=== PATIENT | male | born 1940 | race Caucasian/White ===

== ENCOUNTER 2016-10-27 13:09 | Emergency (ER) | payer MEDICARE ==
[2016-10-27] MEDS ORDERED: DUONEB 0.5-3 MG/3 ml Neb IH ONE ×2 (13:19→13:50)
[2016-10-27] MEDS ORDERED: ROCEPHIN 1 Gm-D5w 50 ml Bag** 50 ML IV ONE ×2 (13:19→13:49)
[2016-10-27] MEDS ORDERED: solu-MEDROL 125 MG IV ONE (13:19)
[2016-10-27] MEDS ORDERED: Pepcid 20 MG VIAL IV ONE ×2 (13:19→13:49)
[2016-10-27] MEDS ORDERED: Zithromax 500 MG/ 250 ML NaCl Premix 250 ML IV ONE ×2 (13:19→13:49)
[2016-10-27] MEDS ORDERED: Sodium Chloride 0.9% 1000 ML 1,000 ML IV SCH (13:30)
[2016-10-27 13:35] LABS: A-aADO2 526; ARTERIAL BLOOD GAS FIO2 100 %; ARTERIAL BLOOD GAS PO2 137 mmHg (75-100); ARTERIAL BLOOD GAS pH 7.43 (7.35-7.45); BIPAP(E) 6; BIPAP(I) 14; Lactic Acid 2.2 (0.4-2.0)
[2016-10-27] MEDS ORDERED: Sodium Chloride 0.9% 1000 ML 1,000 ML ONE (13:49)
[2016-10-27] MEDS ORDERED: solu-MEDROL 125 MG ONE (13:49)
[2016-10-27 13:50] LABS: COMPLETE URINE MICROSCOPIC? NO; Collection Type CATH
[2016-10-27] MEDS ORDERED: FEVERALL 650 MG PR ONE (13:51)
[2016-10-27 13:53] LABS: Mean Cell Volume 85.8 fl (78-100); Mean Corpuscular Hemoglobin 28.1 pg (26-32); Mean Platelet Volume 11.1 fl (6-9.5); Platelet Count 282 K/mm3 (150-450); Red Blood Count 4.99 M/mm3 (4.1-5.6); Red Cell Distribution Width 14.3 % (11.5-14.0); White Blood Count 14.3 K/mm3 (4.0-10.5)
--- NOTE | 2016-10-27 13:58 | ERPHSYRPT ---
- History of Present Illness Time Seen by Provider: 10/27/16 13:14 Source: patient, family, EMS, old records Exam Limitations: clinical condition Patient Subjective Stated Complaint: PT ARRIVED PER AMBULANCE FOR INCREASE SOB AND LOW O2 SATS AT HOME, SAT WAS 76% AT HOME PER EMS AND WAS PLACED ON C PAP AND GIVEN RESP TREATMENT AND SOLUMEDEROL,DIMINISHED BREATH SOUNDS, PT IS BELOW THE KNEE AMPUTEE . Triage Nursing Assessment: PT ARRIVED ALERT, AND IN RESP DISTRESS, RESP LABORED , SKIN W/D PALE.NO EDEMA NOTED Physician History: patient arrived in resp extremis via EMS; elevated temp' on c pap; awake and responsive but too sob to talk; hx of pnuemonia Timing/Duration: today, sudden, worse Activities at Onset: rest Severity of Dyspnea-Max: severe Severity of Dyspnea-Current: severe Possible Cause: occasional episodes Modifying Factors: Improves With: nothing Associated Symptoms: cough, fever International travel in last 2 weeks: No Allergies/Adverse Reactions: No Known Drug Allergies Allergy (Verified 10/27/16 13:24) Home Medications: Aspirin EC 81 mg [Ecotrin 81 mg] 81 mg PO DAILY 02/27/13 [History] Furosemide 40 mg [Lasix 40 MG] 40 mg PO DAILY 02/27/13 [History] Lisinopril [Zestril] 5 mg PO DAILY 02/27/13 [History] Metformin HCl 1000 mg [Glucophage 1000 MG] 1,000 mg PO BID 02/27/13 [History] Metoprolol Tartrate 25 mg [Lopressor 25MG Tab] 12.5 mg PO BID 02/27/13 [ History] Clopidogrel Bisulfate 75 mg [PLAVIX 75 MG Tablet] 75 mg DAILY 10/27/16 [ History] Fenofibrate Nanocrystallized [Fenofibrate] 145 mg DAILY 10/27/16 [History] Insulin Aspart [NovoLOG Insulin] 14 units TID 10/27/16 [History] Insulin Detemir [Levemir] 35 units HS 10/27/16 [History] Ipratropium/Albuterol Sulfate [Iprat-Albut 0.5-3(2.5) mg/3 ml] 3 ml QID [History] Hx Tetanus, Diphtheria Vaccination/Date Given: Yes Hx Influenza Vaccination/Date Given: (UNSURE) Hx Pneumococcal Vaccination/Date Given: (UNSURE) Immunizations Up to Date: Yes - Review of Systems Constitutional: Fever, Lethargy Eyes: No Symptoms Ears, Nose, & Throat: No Symptoms Respiratory: Cyanosis, Dyspnea, Wheezing Cardiac: Syncope (semi), Orthopnea, No Chest Pain Abdominal/Gastrointestinal: No Abdominal Pain, No Vomiting, No Diarrhea Genitourinary Symptoms: No Symptoms Musculoskeletal: Other (bilateral lower extremity amputee) Skin: No Symptoms Neurological: Lethargy Psychological: No Symptoms Endocrine: No Symptoms Hematologic/Lymphatic: No Symptoms - Past Medical History Pertinent Past Medical History: Yes Neurological History: No Pertinent History ENT History: No Pertinent History Cardiac History: Coronary Artery Disease, Hypertension, Myocardial Infarction ( [place]), Peripheral Vascular Disease Respiratory History: Bronchitis, COPD, Emphysema, Sleep Apnea Endocrine Medical History: Diabetes Type II, Liver Disease Musculoskeletal History: Arthritis GI Medical History: No Pertinent History History: No Pertinent History Psycho-Social History: Depression Male Reproductive Disorders: No Pertinent History - Past Surgical History Past Surgical History: Yes Neuro Surgical History: No Pertinent History Cardiac: Cardiac Catheterization Respiratory: No Pertinent History Gastrointestinal: Appendectomy, Hernia Repair Genitourinary: No Pertinent History Musculoskeletal: Orthopedic Surgery Male Surgical History: No Pertinent History Other Surgical History: LEFT THUMB X3, BACK SURGERY, LEFT SHOULDER. PAXTON ABOCE KNEE AMPUTEE - Social History Smoking Status: Unknown if ever smoked How long have you smoked: 63 YRS. Exposure to second hand smoke: Yes Alcohol Use: Socially Drug Use: none Patient Lives Alone: No Significant Family History: heart disease, diabetes, hypertension - Nursing Vital Signs Nursing Vital Signs: Initial Vital Signs Temperature 103 F Temperature Source Core Pulse Rate 78 Respiratory Rate 20 Blood Pressure [] 112/62 Pain Intensity 0 - Physical Exam General Appearance: severe distress, lethargy, obese, other (bilateral lower extremity amputee) Eye Exam: PERRL/EOMI, No photophobia Ears, Nose, Throat Exam: hearing grossly normal, normal ENT inspection, normal pharynx Neck Exam: normal inspection, non-tender, supple, full range of motion, JVD, No meningismus Respiratory Exam: respiratory distress, airway intact, diminished breath sounds , accessory muscle use, crackles/rales, rhonchi, wheezing, No normal breath sounds, No chest tenderness Cardiovascular/Chest Exam: JVD, tachycardia, irregular, No normal heart sounds, No regular rate/rhythm (mfled), No murmur Abdominal/Gastrointestinal Exam: soft, normal bowel sounds, distention (soft), No tenderness, No guarding, No rebound Rectal Exam: deferred Extremity Exam: non-tender (upper), normal inspection (upper) Peripheral Pulses Exam: carotid (R): 4+, carotid (L): 4+, femoral (R): 4+, femoral (L): 4+ Neurologic Exam: cooperative, drink box mechanic II-XII nml as tested Skin Exam: normal color, warm, dry, No rash SpO2 Interpretation: normal, ABG ordered, O2 applied SpO2: 99 Oxygen Delivery: CPAP - Course Nursing assessment & vital signs reviewed: Yes EKG Interpreted by Me: RATE (116), A-fib, NORMAL AXIS, NORMAL QRS, Non-specific ST Changes Rhythm Strip: Rate (116), Atrial Fibrillation (w RVR) - Radiology Exams Chest X-ray Interpretation: Reviewed by me, Teleradiologist Report, Infiltrates (RLL) , Pneumonia (RLL) Ordered Tests: Active Orders 24 hr Category Date Time Status ACCUCHECK [Accucheck] STAT Care 10/27/16 15:39 Active CO2 Monitoring STAT Care 10/27/16 13:19 Completed Woodworking Craftsman STAT Care 10/27/16 13:19 Active Catheter-[place] Mendez STAT Care 10/27/16 13:19 Active EKG-ER Only STAT Care 10/27/16 13:19 Active IV Insertion STAT Care 10/27/16 13:19 Active IV Insertion-2nd Peripheral STAT Care 10/27/16 13:47 Active NPO (ED) STAT Care 10/27/16 13:19 Active Pulse Oximetry (ED) STAT Care 10/27/16 13:19 Active Rectal Temperature STAT Care 10/27/16 13:19 Active CHEST 1 VIEW (PORTABLE) Stat Exams 10/27/16 13:19 Completed ARTERIAL BLOOD GASES Urgent Lab 10/27/16 13:30 Completed BLOOD CULTURE Stat Lab 10/27/16 13:40 Received CBC W DIFF Stat Lab 10/27/16 13:47 Completed CMP Stat Lab 10/27/16 13:47 Completed CULTURE,SPUTUM Stat Lab 10/27/16 13:19 Uncollected CULTURE,URINE Stat Lab 10/27/16 13:47 Received Lactic Acid Urgent Lab 10/27/16 13:30 Completed MAGNESIUM Stat Lab 10/27/16 13:47 Completed Manual Differential NC Stat Lab 10/27/16 13:47 Completed NT PRO BNP Stat Lab 10/27/16 13:47 Completed PROTIME WITH INR Stat Lab 10/27/16 13:40 Completed TROPONIN Stat Lab 10/27/16 13:47 Completed UA Stat Lab 10/27/16 13:47 Completed BiPap/CPAP Assessment STAT RT 10/27/16 13:19 Active Peak Expiratory Flow Rate ONCE RT 10/27/16 13:19 Completed Respiratory Nebulizer STAT RT 10/27/16 13:25 Completed Medication Summary Generic Name Dose Route Start Last Admin Trade Name Freq PRN Reason Stop Dose Admin Sodium Chloride 1,000 mls @ 50 mls/hr 10/27/16 13:30 10/27/16 13:53 Sodium Chloride 0.9% 1000 Ml IV 11/26/16 13:29 50 mls/hr .Q20H VENESSA Administration Discontinued Medications Generic Name Dose Route Start Last Admin Trade Name Freq PRN Reason Stop Dose Admin Acetaminophen 975 mg 10/27/16 13:51 10/27/16 14:15 Feverall 650 Mg NM 10/27/16 13:52 975 mg STAT ONE Administration Acetaminophen Confirm 10/27/16 14:07 Feverall 650 Mg Administered 10/27/16 14:08 Dose 650 mg .ROUTE .STK-MED ONE Acetaminophen Confirm 10/27/16 14:07 Feverall 325 Mg Administered 10/27/16 14:08 Dose 325 mg .ROUTE .STK-MED ONE Albuterol/Ipratropium 3 ml 10/27/16 13:19 10/27/16 13:53 Duoneb 0.5-3 Mg/3 Ml Neb IH 10/27/16 13:20 3 ml STAT ONE Administration Albuterol/Ipratropium Confirm 10/27/16 13:50 Duoneb 0.5-3 Mg/3 Ml Neb Administered 10/27/16 13:51 Dose 3 ml IH .STK-MED ONE Famotidine 20 mg 10/27/16 13:19 10/27/16 13:53 Pepcid 20 Mg Vial IV 10/27/16 13:20 20 mg STAT ONE Administration Famotidine Confirm 10/27/16 13:49 Pepcid 20 Mg Vial Administered 10/27/16 13:50 Dose 20 mg IV .STK-MED ONE Azithromycin 250 mls @ 125 mls/hr 10/27/16 13:19 10/27/16 13:52 Zithromax 500 Mg/ 250 Ml Nacl Premix IV 10/27/16 15:18 125 mls/hr STAT ONE Administration Ceftriaxone Sodium/Dextrose 50 mls @ 100 mls/hr 10/27/16 13:19 10/27/16 13:53 Rocephin 1 Gm-D5w 50 Ml Bag IV 10/27/16 13:48 100 mls/hr STAT ONE Administration Azithromycin Confirm 10/27/16 13:49 Zithromax 500 Mg/ 250 Ml Nacl Premix Administered 10/27/16 13:50 Dose 250 mls @ ud IV .STK-MED ONE Sodium Chloride Confirm 10/27/16 13:49 Sodium Chloride 0.9% 1000 Ml Administered 10/27/16 13:50 Dose 1,000 mls @ ud .ROUTE .STK-MED ONE Ceftriaxone Sodium/Dextrose Confirm 10/27/16 13:49 Rocephin 1 Gm-D5w 50 Ml Bag Administered 10/27/16 13:50 Dose 50 mls @ ud IV .STK-MED ONE Ibuprofen 600 mg 10/27/16 14:20 10/27/16 14:25 Motrin 600 Mg PO 10/27/16 14:21 600 mg STAT ONE Administration Ibuprofen Confirm 10/27/16 14:23 Motrin 600 Mg Administered 10/27/16 14:24 Dose 600 mg .ROUTE .STK-MED ONE Methylprednisolone Sodium Succinate 125 mg 10/27/16 13:19 10/27/16 13:53 Solu-Medrol 125 Mg IV 10/27/16 13:20 125 mg STAT ONE Administration Methylprednisolone Sodium Succinate Confirm 10/27/16 13:49 Solu-Medrol 125 Mg Administered 10/27/16 13:50 Dose 125 mg .ROUTE .STK-MED ONE Lab/Rad Data: Laboratory Result Diagrams 10/27/16 13:47 10/27/16 13:47 Laboratory Results 10/27/16 10/27/16 10/27/16 Range/Units 13:47 13:47 13:47 WBC 14.3 H (4.0-10.5) K/mm3 RBC 4.99 (4.1-5.6) M/mm3 Hgb 14.0 (12.5-18.0) gm/dl Hct 42.8 (42-50) % MCV 85.8 (78-100) fl MCH 28.1 (26-32) pg MCHC 32.7 (32-36) g/dl RDW 14.3 H (11.5-14.0) % Plt Count 282 (150-450) K/mm3 MPV 11.1 H (6-9.5) fl Segmented Neutrophils 74 H (36.-66.) % Band Neutrophils 1 (0.0-2.0) % Lymphocytes (Manual) 18 L (24-44) % Monocytes (Manual) 5 (0.0-12.0) % Atypical Lymphocytes 2 % Platelet Estimate NORMAL (NORMAL) Poikilocytosis 1+ Anisocytosis 1+ INR (0.8-3.0) Puncture Site pCO2 (35-45) mmHg pO2 (75-100) mmHg Base Excess (-2.0-2.0) O2 Saturation (94-100) g/dF ABG pH (7.35-7.45) ABG HCO3 (22-28) ABG O2 Sat (Measured) (95-100) % Richmond Test A-a Gradient a/A Ratio Hemoglobin Carboxyhemoglobin (0.0-6.9) % THgb Methemoglobin (1.4-1.5) % Potassium 5.1 (3.5-5.1) Temperature C POC O2 Flow Rate % Inspiratory BiPAP Expiratory BiPAP Sodium 135 L (136-145) mEq/L Chloride 97 L (98-107) mEq/L Carbon Dioxide 27.9 (21-32) mEq/L Anion Gap 15.2 H (5-15) MEQ/L BUN 26 H (9-20) mg/dL Creatinine 1.00 (0.55-1.30) mg/dl Estimated GFR > 60 ML/MIN Glucose 216 H (70-110) MG/DL Lactic Acid (0.4-2.0) Calcium 9.4 (8.5-10.1) mg/dL Magnesium 1.6 L (1.8-2.4) mg/dL Total Bilirubin 0.4 (0.2-1.0) mg/dL AST 23 (15-37) U/L ALT 23 (12-78) U/L Alkaline Phosphatase 51 (46-116) U/L Troponin I < 0.017 (0.000-0.056) ng/ml NT-Pro-B Natriuret Pep 219 H (0-125) pg/ml Serum Total Protein 8.3 H (6.4-8.2) gm/dL Albumin 3.6 (3.4-5.0) g/dL Ur Collection Type CATH Urine Color YELLOW (YELLOW) Urine Appearance CLEAR (CLEAR) Urine pH 5.0 (5-6) Ur Specific Adrian 1.010 (1.005-1.025) Urine Protein NEGATIVE (Negative) Urine Glucose (UA) NEGATIVE (NEGATIVE) mg/dL Urine Ketones NEGATIVE (NEGATIVE) Urine Nitrite NEGATIVE (NEGATIVE) Urine Bilirubin NEGATIVE (NEGATIVE) Urine Urobilinogen 0.2 (0-1) mg/dL Urine WBC (Auto) NEGATIVE (NEGATIVE) Urine RBC (Auto) NEGATIVE (0-5) Elio/ul Resp Infection Panel (Negative) Specimen Received 10/27/16 1340 10/27/16 10/27/16 10/27/16 Range/Units 13:40 13:40 13:30 WBC (4.0-10.5) K/mm3 RBC (4.1-5.6) M/mm3 Hgb (12.5-18.0) gm/dl Hct (42-50) % MCV (78-100) fl MCH (26-32) pg MCHC (32-36) g/dl RDW (11.5-14.0) % Plt Count (150-450) K/mm3 MPV (6-9.5) fl Segmented Neutrophils (36.-66.) % Band Neutrophils (0.0-2.0) % Lymphocytes (Manual) (24-44) % Monocytes (Manual) (0.0-12.0) % Atypical Lymphocytes % Platelet Estimate (NORMAL) Poikilocytosis Anisocytosis INR 1.16 (0.8-3.0) Puncture Site LEFT RADIAL pCO2 40 (35-45) mmHg pO2 137 H* (75-100) mmHg Base Excess 2.0 (-2.0-2.0) O2 Saturation 96.7 (94-100) g/dF ABG pH 7.43 (7.35-7.45) ABG HCO3 26.5 (22-28) ABG O2 Sat (Measured) 97.0 (95-100) % Richmond Test NOT APPLICABLE A-a Gradient 526 a/A Ratio 0.21 Hemoglobin 14.0 Carboxyhemoglobin 0.0 (0.0-6.9) % THgb Methemoglobin 0.3 L (1.4-1.5) % Potassium 5.1 (3.5-5.1) Temperature 37.0 C POC O2 Flow Rate 100 % Inspiratory BiPAP 14 Expiratory BiPAP 6 Sodium (136-145) mEq/L Chloride (98-107) mEq/L Carbon Dioxide (21-32) mEq/L Anion Gap (5-15) MEQ/L BUN (9-20) mg/dL Creatinine (0.55-1.30) mg/dl Estimated GFR ML/MIN Glucose (70-110) MG/DL Lactic Acid 2.2 H (0.4-2.0) Calcium (8.5-10.1) mg/dL Magnesium (1.8-2.4) mg/dL Total Bilirubin (0.2-1.0) mg/dL AST (15-37) U/L ALT (12-78) U/L Alkaline Phosphatase (46-116) U/L Troponin I (0.000-0.056) ng/ml NT-Pro-B Natriuret Pep (0-125) pg/ml Serum Total Protein (6.4-8.2) gm/dL Albumin (3.4-5.0) g/dL Ur Collection Type Urine Color (YELLOW) Urine Appearance (CLEAR) Urine pH (5-6) Ur Specific Adrian (1.005-1.025) Urine Protein (Negative) Urine Glucose (UA) (NEGATIVE) mg/dL Urine Ketones (NEGATIVE) Urine Nitrite (NEGATIVE) Urine Bilirubin (NEGATIVE) Urine Urobilinogen (0-1) mg/dL Urine WBC (Auto) (NEGATIVE) Urine RBC (Auto) (0-5) Elio/ul Resp Infection Panel NEGATIVE (Negative) Specimen Received reviewed - Progress Progress: improved (after meds and treatment), re-examined (after treatments and meds) Air Movement: poor Progress Note: 10/27/16 14:00 ekg AF w RVR; ATBs and fluids given;labs and XR pending; will recheck; put on bipapa; ABG drawn and ok; will decrease o2; elevated WBC; lactic acid elevated 2.2 10/27/16 14:44 Teri Cates consulted adn will refer to [facility] Dr Okeefe; family at bedside; patient clincially imnmporved; awake and responsive now; resp distress resolve 10/27/16 16:15 family consulted and informed of results; patient continued to improve with meds and on bipap; Discussed case with DR Okeefe and he accepted the patietn for transfer to [facility] ICU; patient and family notified; patient under continuous monitoring and awaiting bed assignment; will call EMS for transfer Blood Culture(s) Obtained: Yes Antibiotics given: Yes Discussed with .: Other (Teri Cates consulted and will refer to [facility] Resident attending; Dr Okeefe consulted and accepted the patient for transfer to [facility] ICU) Will see patient in: hospital (full admit) Counseled pt/family regarding: lab results, diagnosis, need for follow-up, rad results - Departure Time of Disposition: 16:17 Departure Disposition: Transfer (to [facility] ICU ; Dr Okeefe accepting physician) Clinical Impression: Hypoxemia, Pneumonia, Morbid obesity, Elevated lactic acid level, Acute respiratory failure Condition: Serious Critical Care Time: Yes Critical Care Time(excluding separately billable procedures): 30-74 minutes Referrals: TERI MOSER PA [Primary Care Provider] -
[2016-10-27 14:01] LABS: INR 1.16 (0.8-3.0); PROTIME 12.9 SECONDS (8.83-12.87)
[2016-10-27 14:05] LABS: ATYPICAL LYMPHS 2 %; BAND 1 % (0.0-2.0); Total Cells Counted 100
[2016-10-27] MEDS ORDERED: FEVERALL 325 MG ONE (14:07)
[2016-10-27] MEDS ORDERED: FEVERALL 650 MG ONE (14:07)
[2016-10-27 14:08] LABS: ANISOCYTOSIS 1+; Platelet Estimate NORMAL (NORMAL); Poikilocytosis 1+
[2016-10-27] MEDS ORDERED: MOTRIN 600 MG PO ONE (14:20)
[2016-10-27] MEDS ORDERED: MOTRIN 600 MG ONE (14:23)
[2016-10-27 14:34] LABS: ALBUMIN 3.6 g/dL (3.4-5.0); ALKALINE PHOSPHATASE 51 U/L (46-116); ANION GAP 15.2 MEQ/L (5-15); BILIRUBIN,TOTAL 0.4 mg/dL (0.2-1.0); BLOOD UREA NITROGEN 26 mg/dL (9-20); CHLORIDE 97 mEq/L (98-107); Carbon Dioxide 27.9 mEq/L (21-32); Glucose 216 MG/DL (70-110); MAGNESIUM 1.6 mg/dL (1.8-2.4); Potassium 5.1 mEq/L (3.5-5.1); SGOT/AST 23 U/L (15-37); SGPT/ALT 23 U/L (12-78); SODIUM 135 mEq/L (136-145); Total Protein 8.3 gm/dL (6.4-8.2)
[2016-10-27 14:35] LABS: TROPONIN < 0.017 ng/ml (0.000-0.056)
--- NOTE | 2016-10-27 14:43 | XRAY ---
Indication: Short of breath. Comparison: March 22, 2015 Portable chest again demonstrates right base infiltrate versus atelectasis. Remaining lungs clear. Heart is not enlarged for AP portable technique. Bony thorax intact again with osteopenia and previous left shoulder arthroplasty. Impression: Right base infiltrate/atelectasis. Correlate clinically.
[2016-10-27 16:27] VITALS: O2SAT 97
[2016-10-27 19:21] VITALS: BP 110/66; PULSE 84
== END 2016-10-27 19:54 | disposition short-term general hospital (02) ==
LOC: ED 13:09
DX: R09.02 Hypoxemia (principal); J18.9 Pneumonia, unspecified organism; E66.01 Morbid (severe) obesity due to excess calories; R74.0 Nonspecific elevation of levels of transaminase and lactic acid dehydrogenase [LDH]; J96.90 Respiratory failure, unspecified, unspecified whether with hypoxia or hypercapnia; R05 Cough; R50.9 Fever, unspecified; I25.10 Atherosclerotic heart disease of native coronary artery without angina pectoris; I10 Essential (primary) hypertension; I21.3 ST elevation (STEMI) myocardial infarction of unspecified site; E11.9 Type 2 diabetes mellitus without complications; Z79.899 Other long term (current) drug therapy
CPT/HCPCS: 36000; 36415; 36600; 51702; 71010; 80053; 81002; 82375; 82803; 82962; 83605; 83735; 83880; 84484; 85025; 85610; 87040; 87086; 87631; 93005; 93041; 94002; 94640; 96360; 96361; 96365; 96366; 96368; 99284; 99291; J0456; J0696; J2930

== ENCOUNTER 2017-01-10 11:37 | Inpatient (IN) | payer MEDICARE ==
--- NOTE | 2017-01-10 11:53 | ERPHSYRPT ---
- History of Present Illness Time Seen by Provider: 01/10/17 11:38 Source: patient, EMS (gave duoneb, oxygen, albuterol, and solu medrol PASSENGER LOCOMOTIVE ENGINEER) Physician History: CC: short of breath Hx: 76 y/o patient with no local doctor (in between doctors). He has one week hx of shortness of breath, cough, phlegm. Maybe some fever. No chills. Hx of DM and COPD. He is on home oxygen at 4L. EMS gave nebs and steroids with some improvement in condition. No chest pain. No V/D. He has prior bilateral leg amputations. Timing/Duration: week(s) (1) Severity of Dyspnea-Max: moderate Severity of Dyspnea-Current: moderate Allergies/Adverse Reactions: No Known Drug Allergies Allergy (Verified 01/10/17 11:51) Home Medications: Aspirin EC 81 mg [Ecotrin 81 mg] 81 mg PO DAILY 02/27/13 [History] Furosemide 40 mg [Lasix 40 MG] 40 mg PO DAILY 02/27/13 [History] Lisinopril [Zestril] 5 mg PO DAILY 02/27/13 [History] Metformin HCl 1000 mg [Glucophage 1000 MG] 1,000 mg PO BID 02/27/13 [History] Clopidogrel Bisulfate 75 mg [PLAVIX 75 MG Tablet] 75 mg DAILY 10/27/16 [ History] Fenofibrate Nanocrystallized [Fenofibrate] 145 mg DAILY 10/27/16 [History] Insulin Aspart [NovoLOG Insulin] 14 units TID 10/27/16 [History] Insulin Detemir [Levemir] 35 units HS 10/27/16 [History] Ipratropium/Albuterol Sulfate [Iprat-Albut 0.5-3(2.5) mg/3 ml] 3 ml QID [History] Metoprolol Tartrate [Lopressor] 50 mg PO DAILY 01/10/17 [History] Potassium Chloride 10 Meq Tab* [Klor Con 10 MEQ] 10 meq PO UD 01/10/17 [ History] Sertraline HCl 50 mg [Zoloft 50 mg Tablet] 75 mg PO DAILY 01/10/17 [History] Tizanidine HCl 4 mg [Zanaflex 4 MG] 4 mg PO TID 01/10/17 [History] Hx Tetanus, Diphtheria Vaccination/Date Given: Yes Hx Influenza Vaccination/Date Given: (UNSURE) Hx Pneumococcal Vaccination/Date Given: (UNSURE) - Review of Systems Constitutional: Fever, Malaise, Weakness, No Chills Eyes: No Symptoms Ears, Nose, & Throat: No Symptoms Respiratory: Cough, Dyspnea Cardiac: No Chest Pain Abdominal/Gastrointestinal: No Abdominal Pain, No Nausea, No Vomiting, No Diarrhea Genitourinary Symptoms: No Dysuria Skin: No Rash Neurological: No Headache All Other Systems: Reviewed and Negative - Past Medical History Pertinent Past Medical History: Yes Neurological History: No Pertinent History ENT History: No Pertinent History Cardiac History: Coronary Artery Disease, Hypertension, Myocardial Infarction ( [place]), Peripheral Vascular Disease Respiratory History: Bronchitis, COPD, Emphysema, Sleep Apnea Endocrine Medical History: Diabetes Type II, Liver Disease Musculoskeletal History: Arthritis GI Medical History: No Pertinent History History: No Pertinent History Psycho-Social History: Depression Male Reproductive Disorders: No Pertinent History - Past Surgical History Past Surgical History: Yes Neuro Surgical History: No Pertinent History Cardiac: Cardiac Catheterization Respiratory: No Pertinent History Gastrointestinal: Appendectomy, Hernia Repair Genitourinary: No Pertinent History Musculoskeletal: Orthopedic Surgery Male Surgical History: No Pertinent History Other Surgical History: LEFT THUMB X3, BACK SURGERY, LEFT SHOULDER. PAXTON ABOVE KNEE AMPUTEE - Social History Smoking Status: Unknown if ever smoked How long have you smoked: 63 YRS. Exposure to second hand smoke: Yes Alcohol Use: Socially Drug Use: none Patient Lives Alone: No Significant Family History: heart disease, diabetes, hypertension - Nursing Vital Signs Nursing Vital Signs: Initial Vital Signs Temperature 98.6 F Temperature Source Rectal Pulse Rate 88 Respiratory Rate 28 Blood Pressure [Right Arm] 115/50 Pain Intensity 0 - Physical Exam General Appearance: alert Eye Exam: PERRL/EOMI Neck Exam: normal inspection, non-tender, supple Respiratory Exam: respiratory distress (mild), crackles/rales Cardiovascular/Chest Exam: regular rate/rhythm Abdominal/Gastrointestinal Exam: soft, No tenderness, No distention, No mass, No guarding Neurologic Exam: alert, oriented x 3, cooperative, No motor deficits Skin Exam: warm, dry SpO2 Interpretation: borderline oxygenation SpO2: 93 Oxygen Delivery: Nasal Cannula - Course Nursing assessment & vital signs reviewed: Yes EKG Interpreted by Me: RATE (120), Sinus Tach, NORMAL AXIS, Non-specific ST Changes - Radiology Exams cxr X-ray Interpretation: Teleradiologist Report (bilateral infiltrates) Ordered Tests: Active Orders 24 hr Category Date Time Status CO2 Monitoring STAT Care 01/10/17 11:38 Active Kindergarten Assistant STAT Care 01/10/17 11:38 Active Clean Catch Urine Specimen STAT Care 01/10/17 11:38 Active EKG-ER Only STAT Care 01/10/17 11:38 Active IV Insertion STAT Care 01/10/17 11:38 Active Oxygen-ED Only NASAL CANNULA 4 lpm Care 01/10/17 11:38 Active Pulse Oximetry (ED) STAT Care 01/10/17 11:38 Active Rectal Temperature STAT Care 01/10/17 11:38 Active CHEST 1 VIEW (PORTABLE) Stat Exams 01/10/17 11:39 Completed BLOOD CULTURE Stat Lab 01/10/17 11:55 Received CBC W DIFF Stat Lab 01/10/17 11:55 Completed CMP Stat Lab 01/10/17 11:55 Received CULTURE,SPUTUM Stat Lab 01/10/17 12:29 Ordered CULTURE,URINE Stat Lab 01/10/17 11:39 Ordered Lactic Acid Urgent Lab 01/10/17 11:38 Completed Lactic Acid Urgent Lab 01/10/17 13:30 Ordered Manual Differential NC Stat Lab 01/10/17 11:55 Completed NT PRO BNP Stat Lab 01/10/17 11:55 Received PROTIME WITH INR Stat Lab 01/10/17 11:55 Completed PTT Stat Lab 01/10/17 11:55 Completed TROPONIN Stat Lab 01/10/17 11:55 Received UA Stat Lab 01/10/17 11:39 Ordered VENOUS BLOOD GAS Urgent Lab 01/10/17 11:38 Completed Medication Summary Generic Name Dose Route Start Last Admin Trade Name Freq PRN Reason Stop Dose Admin Azithromycin 250 mls @ 125 mls/hr 01/10/17 12:01 01/10/17 12:15 Zithromax 500 Mg/ 250 Ml Nacl Premix IV 01/10/17 14:00 125 mls/hr STAT ONE Administration Discontinued Medications Generic Name Dose Route Start Last Admin Trade Name Freq PRN Reason Stop Dose Admin Ceftriaxone Sodium/Dextrose 50 mls @ 100 mls/hr 01/10/17 12:01 01/10/17 12:15 Rocephin 1 Gm-D5w 50 Ml Bag IV 01/10/17 12:30 100 mls/hr STAT ONE Administration Azithromycin Confirm 01/10/17 12:10 Zithromax 500 Mg/ 250 Ml Nacl Premix Administered 01/10/17 12:11 Dose 250 mls @ ud IV .STK-MED ONE Ceftriaxone Sodium/Dextrose Confirm 01/10/17 12:11 Rocephin 1 Gm-D5w 50 Ml Bag Administered 01/10/17 12:12 Dose 50 mls @ ud IV .STK-MED ONE Lab/Rad Data: Laboratory Result Diagrams 01/10/17 11:55 Laboratory Results 01/10/17 01/10/17 01/10/17 Range/Units 11:55 11:55 11:40 WBC 15.6 H (4.0-10.5) K/mm3 RBC 5.07 (4.1-5.6) M/mm3 Hgb 12.9 (12.5-18.0) gm/dl Hct 41.8 L (42-50) % MCV 82.4 (78-100) fl MCH 25.4 L (26-32) pg MCHC 30.9 L (32-36) g/dl RDW 15.2 H (11.5-14.0) % Plt Count 375 (150-450) K/mm3 MPV 10.6 H (6-9.5) fl Segmented Neutrophils 52 (36.-66.) % Lymphocytes (Manual) 45 H (24-44) % Monocytes (Manual) 3 (0.0-12.0) % Platelet Estimate NORMAL (NORMAL) Polychromasia 1+ Poikilocytosis 1+ Anisocytosis 1+ INR 1.27 (0.8-3.0) PTT 31.6 (24.1-36.1) SECONDS VBG pH (7.32-7.42) VBG pCO2 at Pat Temp (42-55) mm/Hg VBG pO2 at Pat Temp (25-40) mm/Hg VBG HCO3 (22-28) meq/L VBG O2 Sat (Julian) (95-100) VBG Base Excess (-2.0-2.0) VBG Hemoglobin VBG Carboxyhemoglobin (0.0-6.9) % T HGB POC Potassium (3.5-5.1) Lactic Acid (0.4-2.0) Influenza Type A Ag NEGATIVE (NEGATIVE) Influenza Type B Ag NEGATIVE (NEGATIVE) RSV (PCR) NEGATIVE (Negative) 01/10/17 Range/Units 11:38 WBC (4.0-10.5) K/mm3 RBC (4.1-5.6) M/mm3 Hgb (12.5-18.0) gm/dl Hct (42-50) % MCV (78-100) fl MCH (26-32) pg MCHC (32-36) g/dl RDW (11.5-14.0) % Plt Count (150-450) K/mm3 MPV (6-9.5) fl Segmented Neutrophils (36.-66.) % Lymphocytes (Manual) (24-44) % Monocytes (Manual) (0.0-12.0) % Platelet Estimate (NORMAL) Polychromasia Poikilocytosis Anisocytosis INR (0.8-3.0) PTT (24.1-36.1) SECONDS VBG pH 7.39 (7.32-7.42) VBG pCO2 at Pat Temp 49 (42-55) mm/Hg VBG pO2 at Pat Temp 25 (25-40) mm/Hg VBG HCO3 29.7 H* (22-28) meq/L VBG O2 Sat (Julian) 44.5 L (95-100) VBG Base Excess 3.8 H (-2.0-2.0) VBG Hemoglobin 13.3 VBG Carboxyhemoglobin 2.1 (0.0-6.9) % T HGB POC Potassium 4.9 (3.5-5.1) Lactic Acid 2.6 H (0.4-2.0) Influenza Type A Ag (NEGATIVE) Influenza Type B Ag (NEGATIVE) RSV (PCR) (Negative) - Progress Progress Note: 01/10/17 13:18 Stable here but appears to have pneumonia with COPD exacerbation. On oxygen for chronic hypoxemia. Called Dr Mehta fmor admission. Discussed with : Tyson Will see patient in: hospital (full admit) Counseled pt/family regarding: lab results, diagnosis, need for follow-up, rad results - Departure Time of Disposition: 13:19 Departure Disposition: In-patient Admission Clinical Impression: Pneumonia, COPD exacerbation, Type 2 diabetes mellitus Condition: Fair Critical Care Time: No Referrals: DOCTOR,NO FAMILY [Primary Care Provider] -
[2017-01-10 11:58] LABS: Lactic Acid 2.6 (0.4-2.0); VBG BASE EXCESS 3.8 (-2.0-2.0); VBG CARBOXYHEMOGLOBIN 2.1 % T HGB (0.0-6.9); VBG HCO3- 29.7 meq/L (22-28); VBG HEMOGLOBIN 13.3; VBG O2 SATURATION 44.5 (95-100); VBG POTASSIUM 4.9 (3.5-5.1); VBG pH 7.39 (7.32-7.42)
[2017-01-10] MEDS ORDERED: ROCEPHIN 1 Gm-D5w 50 ml Bag** 50 ML IV ONE ×2 (12:01→12:11)
[2017-01-10] MEDS ORDERED: Zithromax 500 MG/ 250 ML NaCl Premix 250 ML IV ONE ×2 (12:01→12:10)
[2017-01-10 12:12] LABS: Mean Cell Volume 82.4 fl (78-100); Mean Corpuscular Hemoglobin 25.4 pg (26-32); Mean Platelet Volume 10.6 fl (6-9.5); Platelet Count 375 K/mm3 (150-450); Red Blood Count 5.07 M/mm3 (4.1-5.6); Red Cell Distribution Width 15.2 % (11.5-14.0); White Blood Count 15.6 K/mm3 (4.0-10.5)
--- NOTE | 2017-01-10 12:15 | XRAY ---
Indication: Cough and dyspnea. Comparison: October 27, 2016. Portable chest is rotated today translating the heart and mediastinal structures. Probable stable right base infiltrate/atelectasis with new similar opacity in the left lung base. Heart remains upper limits of normal in size. Bony thorax intact again with osteopenia and previous left shoulder arthroplasty. Impression: Bibasilar infiltrates/atelectasis. Correlate clinically.
[2017-01-10 12:31] LABS: INR 1.27 (0.8-3.0); PROTIME 14.1 SECONDS (8.83-12.87)
[2017-01-10 12:34] LABS: PTT 31.6 SECONDS (24.1-36.1)
[2017-01-10 12:35] LABS: ANISOCYTOSIS 1+; Poikilocytosis 1+; Polychromasia 1+; Total Cells Counted 100
[2017-01-10 12:36] LABS: Platelet Estimate NORMAL (NORMAL)
[2017-01-10 13:39] LABS: ALBUMIN 2.8 g/dL (3.4-5.0); ALKALINE PHOSPHATASE 97 U/L (46-116); ANION GAP 15.4 MEQ/L (5-15); BILIRUBIN,TOTAL 0.4 mg/dL (0.2-1.0); BLOOD UREA NITROGEN 17 mg/dL (9-20); CHLORIDE 99 mEq/L (98-107); Carbon Dioxide 28.7 mEq/L (21-32); Glucose 234 MG/DL (70-110); Potassium 4.8 mEq/L (3.5-5.1); SGOT/AST 21 U/L (15-37); SGPT/ALT 21 U/L (12-78); SODIUM 138 mEq/L (136-145); TROPONIN < 0.017 ng/ml (0.000-0.056); Total Protein 8.8 gm/dL (6.4-8.2)
[2017-01-10] MEDS ORDERED: Sodium Chloride 0.9% 1000 ML 1,000 ML IV STA (13:43)
[2017-01-10] MEDS ORDERED: PROVENTIL 2.5 MG/3 ML NEB IH ONE ×2 (13:43→13:44)
[2017-01-10] MEDS ORDERED: Sodium Chloride 0.9% 1000 ML 1,000 ML ONE (13:49)
[2017-01-10 14:21] LABS: Collection Type CATH
[2017-01-10 14:22] LABS: Bacteria FEW /HPF (NEGATIVE); COMPLETE URINE MICROSCOPIC? YES; Mucus SLIGHT /HPF (NEGATIVE); Ph 6.5 (5-6); WBC 0-2 /HPF (0-5)
[2017-01-10] MEDS ORDERED: NovoLOG Insulin SQ PRN (15:06)
[2017-01-10] MEDS ORDERED: DUONEB 0.5-3 MG/3 ml Neb IH ONE (15:49)
[2017-01-10] MEDS: DUONEB 0.5-3 MG/3 ml Neb IH SCH ×3 (15:50→23:21)
[2017-01-10 16:26] LABS: BLOOD UREA NITROGEN 23 mg/dL (9-20); CHLORIDE 103 mEq/L (98-107); Carbon Dioxide 25.7 mEq/L (21-32); Glucose 220 MG/DL (70-110); Potassium 5.1 mEq/L (3.5-5.1); SODIUM 141 mEq/L (136-145)
[2017-01-10 16:43] LABS: Mean Cell Volume 82.9 fl (78-100); Mean Platelet Volume 10.7 fl (6-9.5); Platelet Count 347 K/mm3 (150-450); Red Blood Count 4.45 M/mm3 (4.1-5.6); Red Cell Distribution Width 14.9 % (11.5-14.0)
[2017-01-10 16:55] LABS: Mean Corpuscular Hemoglobin 25.1 pg (26-32)
[2017-01-10] MEDS ORDERED: Phenergan 25 MG INJ IV PRN (17:09)
[2017-01-10] MEDS: Zosyn 3.375GM/100 Ml D5W 100 ML IV SCH (18:11)
[2017-01-10] MEDS: Sodium Chloride 0.9% 1000 ML 1,000 ML IV SCH (18:11)
[2017-01-10] MEDS: solu-MEDROL 125 MG IV SCH (18:17)
[2017-01-10 18:56] LABS: Collection Type CLEAN CATCH
[2017-01-10 18:58] LABS: ADD URINE CULTURE? YES (NO)
[2017-01-10 19:00] LABS: COMPLETE URINE MICROSCOPIC? YES
[2017-01-10] MEDS: Pepcid 20 MG VIAL IV SCH (22:00)
[2017-01-10] MEDS ORDERED: Lantus Insulin SQ SCH (22:00)
[2017-01-10] MEDS: ZOCOR 20MG PO SCH (22:01)
[2017-01-10] MEDS: NovoLOG Insulin SQ PRN (22:03)
[2017-01-10] MEDS: Zanaflex 4 MG PO SCH (22:28)
[2017-01-11] MEDS: Zosyn 3.375GM/100 Ml D5W 100 ML IV SCH ×4 (00:11→18:05)
[2017-01-11] MEDS: solu-MEDROL 125 MG IV SCH ×4 (00:11→18:05)
[2017-01-11] MEDS: DUONEB 0.5-3 MG/3 ml Neb IH SCH ×6 (03:32→22:48)
[2017-01-11 05:50] LABS: Mean Cell Volume 83.9 fl (78-100); Mean Platelet Volume 10.6 fl (6-9.5); Platelet Count 340 K/mm3 (150-450); Red Cell Distribution Width 15.1 % (11.5-14.0)
[2017-01-11 05:54] LABS: ANION GAP 14.2 MEQ/L (5-15); BLOOD UREA NITROGEN 21 mg/dL (9-20); CHLORIDE 104 mEq/L (98-107); Carbon Dioxide 28.5 mEq/L (21-32); Glucose 425 MG/DL (70-110); Potassium 4.9 mEq/L (3.5-5.1); SODIUM 142 mEq/L (136-145)
[2017-01-11 06:01] LABS: Mean Corpuscular Hemoglobin 25.4 pg (26-32)
[2017-01-11] MEDS: Tricor 145 MG PO SCH (08:09)
[2017-01-11] MEDS: Flomax 0.4 MG PO SCH (08:09)
[2017-01-11] MEDS: PLAVIX 75 MG Tablet PO SCH (08:09)
[2017-01-11] MEDS: Zanaflex 4 MG PO SCH ×3 (08:09→21:04)
[2017-01-11] MEDS: ZOLOFT 50 MG TABLET PO SCH (08:09)
[2017-01-11] MEDS: ECOTRIN 81 MG PO SCH (08:09)
[2017-01-11] MEDS: NovoLOG Insulin SQ PRN ×4 (08:10→22:31)
--- NOTE | 2017-01-11 08:11 | HP ---
HISTORY OF PRESENT ILLNESS: This is a 76 year-old patient without a physician in the local area who presented to the emergency department via ambulance. According to his emergency room chart, he had shortness of breath. The patient reports to me that this was for one week. The patient is a very poor historian and is dyspneic. On examination right now he does say that he has had a cough that has been productive of yellow sputum and denies fever but states that he has been very warm. He is alert and oriented x3. He knows that he is at the [facility] in [place] and the year is 2016 and his name is Tereso Velazquez but it takes him a long time to answer any kind of questions. According the emergency room physician's note, he is on home oxygen at home at 4 liters. He received nebulizer treatments and steroids in route in the ambulance. He has a history of diabetes mellitus requiring bilateral above knee amputations in the past and he also has history of chronic obstructive pulmonary disease. REVIEW OF SYSTEMS: Further review of systems are unobtainable due to the patient's condition. PAST MEDICAL HISTORY: Diabetes mellitus type 2, chronic obstructive pulmonary disease, history of hypoxia, coronary artery disease, history of myocardial infarction per the emergency room doctors note. History of peripheral vascular disease, sleep apnea and also liver disease in the emergency room doctor's note and arthritis as well as depression. PAST SURGICAL HISTORY: From the emergency room chart: Appendectomy, hernia repair, history of cardiac catheterization, orthopedic surgery, left thumb surgery x2, back surgery, left shoulder surgery, bilateral above knee amputation. MEDICATIONS: Acetaminophen 325 mg p.o. every four to six hours as needed, aspirin 81 mg p.o. daily, Fenofibrate 145 mg p.o. daily, Flomax 0.7 mg p.o. daily, Imodium 2 mg daily as needed, DuoNeb four times a day as needed, Lasix 40 mg daily, Levemir 35 units at bedtime, levofloxacin is on his home medicine list 500 mg daily, lisinopril 5 mg daily, Lopressor 12.5 mg b.i.d., Metformin 1,000 mg b.i.d., NovoLog 14 units t.i.d. with meals, 3 liters of oxygen, Plavix 75 mg daily, potassium chloride 10 mEq four times a day, Sertraline 75 mg p.o. daily, TriCor 160 mg daily, Tylenol 325 mg as needed, Zanaflex 4 mg t.i.d., Zocor 40 mg at bedtime. This is from a medication list that was printed on 11/08/2016. He said he has [facility] home care. ALLERGIES: NKDA. SOCIAL HISTORY: Unobtainable at this time. He is and lives with his . FAMILY HISTORY: Unobtainable. PHYSICAL EXAMINATION: VITAL SIGNS: Temperature current 98.0F, temperature max 98.6F, heart rate 72 to 122 currently 88, respiratory rate 22 to 28 and currently 22, blood pressure 102 to 115 over 50 to 60, weight is 81.4 kg. Oxygen saturation currently 89% on 4 liters with Oxymizer. GENERAL: The patient is lying in bed. He is alert and oriented x3 but he is very dyspneic and it takes him a long time to answer questions. CVS: He has a regular rate and rhythm. No murmurs, gallops or rubs. CHEST: He has scattered wheezes throughout, equal breath sounds. ABDOMEN: Soft, nontender, nondistended with normal bowel sounds. EXTREMITIES: He has above knee amputation but I do not see any sores on his well healed scars. No clubbing, cyanosis or edema. He has 2+ radial pulses bilaterally. SKIN: Warm, dry and intact. LABORATORY DATA AND TESTS: Labs on admission his lactic acid was 2.6, repeat lactic acid two hours later was 3.6. White blood cell count was 15.6 on admission, repeat 11. Hemoglobin 11.2. Glucose 220. BNP 779. Albumin 2.8. UA was negative. Sputum culture and blood culture in lab. Influenza A/B and respiratory syncytial virus were all negative. Chest x-ray was read as bibasilar infiltrate/atelectasis. ASSESSMENT AND PLAN: 1) BILATERAL PNEUMONIA: He was started on ceftriaxone and azithromycin in the emergency room given that his lactic acid is increasing and he seems to be having more trouble answering questions. I am going to change the ceftriaxone to Zosyn. I will recheck a CBC in the morning. I confirmed his Code Status with him. He does not want to have any heroic measures taken and also his had signed this. The nurse stated that he had agreed with this code status while she was in the room and she signed the form for him. 2) DIABETES MELLITUS TYPE 2: Will start him on Lantus 20 units at night and a low dose sliding scale. Will check a hemoglobin A1C. 3) HISTORY OF CHRONIC OBSTRUCTIVE PULMONARY DISEASE: He has been started on IV steroids, will continue with antibiotics as well, breathing treatments and oxygen as needed. 4) HISTORY OF CORONARY ARTERY DISEASE: I am not sure who his form grader is. Will continue with aspirin and Plavix at this time and holding lisinopril and Metoprolol due to his lower blood pressure as I am concerned that he will be septic.
--- NOTE | 2017-01-11 09:16 | PCM.NOTE ---
Date and Time: 01/11/17910 Subjective Assessment: He reports he has some nasal congestion and more shortness of breath and is feeling worse than yesterday. He does seem more alert today though. His nurse reports his oxygen saturation dipped down to 70% and he had to be placed on an oximizer this AM. - Review of Systems All Other Systems: Unable due to condition (He has tachypnea, retractions.) Objective Exam General Appearance: moderate distress Neurologic Exam: alert, cooperative Skin Exam: normal color, warm, dry Respiratory Exam: prolonged expirations, other (equal breath sounds), No crackles/rales, No rhonchi, No wheezing Cardiovascular Exam: regular rate/rhythm, normal heart sounds, No murmur, No friction rub, No gallop Extremity Exam: other (bilat above the knee amputations.) OBJECTIVE DATA Vital Signs: Vital Signs - 24 hr Temp Pulse Resp BP Pulse Ox 01/11/17 08:00 98.3 F 95 H 22 129/75 91 L 01/11/17 04:00 98.5 F 87 25 H 127/59 91 L 01/11/17 03:38 87 22 91 L 01/10/17 23:58 98.8 F 78 22 117/60 94 L 01/10/17 23:21 77 22 94 L 01/10/17 20:04 81 22 85 L 01/10/17 20:00 98.4 F 81 24 96/49 93 L 01/10/17 16:28 98.0 F 88 22 102/57 89 L 01/10/17 16:11 72 24 91 L 01/10/17 14:34 98.0 F 88 22 102/57 89 L 01/10/17 13:55 73 28 H 107/59 93 L 01/10/17 13:50 72 24 98 01/10/17 13:19 93 L 01/10/17 13:17 124 H 22 102/60 95 01/10/17 13:09 28 H 90 L 01/10/17 12:32 88 26 H 115/50 91 L 01/10/17 12:06 98.6 F 01/10/17 11:45 122 H 26 H 107/72 90 L Oxygen-Last 24 hours O2 Percentage 100% O2 Percentage 100% O2 Percentage 5 Liters = 40% O2 Percentage 4 Liters = 36% O2 Percentage 6 Liters = 44% O2 Percentage 4 Liters = 36% O2 Percentage 4 Liters = 36% O2 Percentage 4 Liters = 36% Pain Assessment - Last Documented Pain Intensity 9 Pain Scale Used 0-10 Pain Scale Intake and Output: Intake & Output 01/09/17 01/10/17 01/11/17 01/12/17 06:59 06:59 06:59 06:59 Intake Total 1639 480 Output Total 1800 Balance -161 480 Weight 81.42 kg Lab Results: Accuchecks Date 01/10/17 Time 16:30 Accucheck Value: 407 Accucheck Value: 226 Lab Results-Last 24 Hours 01/10/17 01/10/17 01/10/17 Range/Units 14:58 16:00 17:10 WBC 11.0 H (4.0-10.5) K/mm3 RBC 4.45 (4.1-5.6) M/mm3 Hgb 11.2 L (12.5-18.0) gm/dl Hct 36.9 L (42-50) % MCV 82.9 (78-100) fl MCH 25.1 L (26-32) pg MCHC 30.4 L (32-36) g/dl RDW 14.9 H (11.5-14.0) % Plt Count 347 (150-450) K/mm3 MPV 10.7 H (6-9.5) fl Sodium 141 (136-145) mEq/L Potassium 5.1 (3.5-5.1) mEq/L Chloride 103 (98-107) mEq/L Carbon Dioxide 25.7 (21-32) mEq/L Anion Gap 17.0 H (5-15) MEQ/L BUN 23 H (9-20) mg/dL Creatinine 1.25 (0.55-1.30) mg/dl Estimated GFR > 60 ML/MIN Glucose 220 H (70-110) MG/DL Hemoglobin A1c 9.1 H (4.5-6.2) Calcium 8.4 L (8.5-10.1) mg/dL Prealbumin 10.8 L (18.0-35.7) mg/dL Ur Collection Type Urine Color (YELLOW) Urine Appearance (CLEAR) Urine pH (5-6) Ur Specific [place]lin (1.005-1.025) Urine Protein (Negative) Urine Glucose (UA) (NEGATIVE) mg/dL Urine Ketones (NEGATIVE) Urine Nitrite (NEGATIVE) Urine Bilirubin (NEGATIVE) Urine Urobilinogen (0-1) mg/dL Urine WBC (Auto) (NEGATIVE) Urine RBC (Auto) (0-5) Elio/ul Specimen Received 01/10/17 01/11/17 01/11/17 Range/Units 18:17 05:10 05:10 WBC 7.0 (4.0-10.5) K/mm3 RBC 4.40 (4.1-5.6) M/mm3 Hgb 11.2 L (12.5-18.0) gm/dl Hct 36.9 L (42-50) % MCV 83.9 (78-100) fl MCH 25.4 L (26-32) pg MCHC 30.4 L (32-36) g/dl RDW 15.1 H (11.5-14.0) % Plt Count 340 (150-450) K/mm3 MPV 10.6 H (6-9.5) fl Sodium 142 (136-145) mEq/L Potassium 4.9 (3.5-5.1) mEq/L Chloride 104 (98-107) mEq/L Carbon Dioxide 28.5 (21-32) mEq/L Anion Gap 14.2 (5-15) MEQ/L BUN 21 H (9-20) mg/dL Creatinine 1.11 (0.55-1.30) mg/dl Estimated GFR > 60 ML/MIN Glucose 425 H (70-110) MG/DL Hemoglobin A1c (4.5-6.2) Calcium 8.5 (8.5-10.1) mg/dL Prealbumin (18.0-35.7) mg/dL Ur Collection Type CLEAN CATCH Urine Color YELLOW (YELLOW) Urine Appearance CLEAR (CLEAR) Urine pH 5.0 (5-6) Ur Specific [place] 1.015 (1.005-1.025) Urine Protein NEGATIVE (Negative) Urine Glucose (UA) 100 (NEGATIVE) mg/dL Urine Ketones NEGATIVE (NEGATIVE) Urine Nitrite NEGATIVE (NEGATIVE) Urine Bilirubin NEGATIVE (NEGATIVE) Urine Urobilinogen 0.2 (0-1) mg/dL Urine WBC (Auto) NEGATIVE (NEGATIVE) Urine RBC (Auto) TRACE NON-HEM (0-5) Elio/ul Specimen Received 01/10/17:1810 Multi-Disciplinary Progress Notes: Multi-Disciplinary Progress Notes 01/11/17 01:15 Respiratory Note by David Sehlton CNA CALLED AND STATED PT SATS WERE 76 ON 8LPM NC. I PLACED PT ON 15LPM OXYMIZER AND SATS CAME UP TO 94%. I GAVE PT HIS 2300 TX AND PLACED HIM BACK ON 15LPM OXYMIZER AND SATS CAME BACK UP TO 94%. Initialized on 01/11/17 01:15 - END OF NOTE Assessment/Plan (1) Pneumonia of both lower lobes Current Visit: Yes Status: Acute Assessment & Plan: Continue Zosyn Day 1 and azithromycin Day 2. Try high flow oxygen. Continue with breathing treatments and IV steroids. Prognosis is guarded and poor due to his underlying medical problems. WBC is normal today though. Code(s): J18.9 - PNEUMONIA, UNSPECIFIED ORGANISM (2) Type 2 diabetes mellitus Current Visit: Yes Status: Acute Qualifiers: Diabetes mellitus complication status: with circulatory complication Diabetes mellitus complication detail: with other circulatory complications Diabetes mellitus travel med surg rn insulin use: with alf use Qualified Code(s) : E11.59 - Type 2 diabetes mellitus with other circulatory complications; Z79.4 - prison (current) use of insulin Assessment & Plan: Will increase levemir and continue low dose sliding scale. (3) COPD exacerbation Current Visit: Yes Status: Acute Assessment & Plan: Continue IV steroids and treatment as above for pneumonia. We are trying to get records from his PCP. Code(s): J44.1 - CHRONIC OBSTRUCTIVE PULMONARY DISEASE W (ACUTE) EXACERBATION (4) History of coronary artery disease Current Visit: Yes Status: Acute Assessment & Plan: Continue aspirin and plavix. Code(s): Z86.79 - PERSONAL HISTORY OF OTHER DISEASES OF THE CIRCULATORY SYSTEM
[2017-01-11] MEDS ORDERED: Lantus Insulin SQ SCH (09:17)
[2017-01-11] MEDS: Zithromax 500 MG/ 250 ML NaCl Premix 250 ML IV SCH (09:52)
[2017-01-11] MEDS: Pepcid 20 MG VIAL IV SCH ×2 (09:52→21:04)
[2017-01-11 09:54] LABS: Total Cells Counted 100
[2017-01-11 09:56] LABS: ANISOCYTOSIS 1+; Platelet Estimate NORMAL (NORMAL); Poikilocytosis 1+; Polychromasia 1+
[2017-01-11] MEDS ORDERED: ROCEPHIN 1 Gm-D5w 50 ml Bag** 50 ML IV SCH (10:00)
[2017-01-11] MEDS ORDERED: NON-FORMULARY ITEM (Simvastatin 40 Mg [Zocor 40 Mg] 40 MG) PO SCH (10:00)
[2017-01-11] MEDS: NovoLOG Insulin SQ SCH ×2 (11:08→16:25)
[2017-01-11] MEDS: Sodium Chloride 0.9% 1000 ML 1,000 ML IV SCH (18:09)
[2017-01-11] MEDS: TYLENOL 325 MG PO PRN (19:45)
[2017-01-11] MEDS: ZOCOR 20MG PO SCH (21:04)
[2017-01-12] MEDS: Zosyn 3.375GM/100 Ml D5W 100 ML IV SCH ×4 (00:40→16:57)
[2017-01-12] MEDS: solu-MEDROL 125 MG IV SCH ×4 (00:40→16:58)
[2017-01-12] MEDS: DUONEB 0.5-3 MG/3 ml Neb IH SCH ×6 (02:40→23:01)
[2017-01-12 05:34] LABS: Mean Cell Volume 84.8 fl (78-100); Mean Corpuscular Hemoglobin 25.7 pg (26-32); Mean Platelet Volume 10.3 fl (6-9.5); Platelet Count 342 K/mm3 (150-450); Red Cell Distribution Width 14.9 % (11.5-14.0); White Blood Count 9.4 K/mm3 (4.0-10.5)
[2017-01-12 05:52] LABS: ANION GAP 11.1 MEQ/L (5-15); BLOOD UREA NITROGEN 20 mg/dL (9-20); CHLORIDE 105 mEq/L (98-107); Carbon Dioxide 33.4 mEq/L (21-32); Glucose 392 MG/DL (70-110); Potassium 4.6 mEq/L (3.5-5.1); SODIUM 145 mEq/L (136-145)
[2017-01-12 06:04] LABS: A-aADO2 600; ARTERIAL BLOOD GAS BASE EXCESS 7.7 (-2.0-2.0); ARTERIAL BLOOD GAS FIO2 100 %; ARTERIAL BLOOD GAS PO2 47 mmHg (75-100); ARTERIAL BLOOD GAS pH 7.41 (7.35-7.45)
[2017-01-12 07:38] LABS: ANISOCYTOSIS 1+; Platelet Estimate NORMAL (NORMAL); Poikilocytosis 1+; Polychromasia 1+; Total Cells Counted 100
[2017-01-12] MEDS: NovoLOG Insulin SQ SCH ×3 (07:43→16:58)
[2017-01-12] MEDS: NovoLOG Insulin SQ PRN ×3 (07:44→16:58)
--- NOTE | 2017-01-12 09:22 | PCM.NOTE ---
Date and Time: 01/12/17915 Subjective Assessment: His nurse and RT report that he has had problems with his oxygen saturation and this is worse when he is awake and breathes through his mouth more. He does not want to wear BiPaP and continues to not want to be intubated or placed on a ventilator. He is having trouble with his nose running quite a bit and wants to go back to regular oxygen, but both I and the RT at the same time discussed with him that at this time he is needing much more oxygen than what a regular nasal cannula can provide and if we take the high flow oxygen off, he may . He is agreeable at this time to continue with the high flow oxygen. I talked with lab and the gram stain from the blood culture looks like a contaminant. He reports he has seen Dr. Viera in the past. I reviewed his old records from [facility]. - Review of Systems Constitutional: Fatigue Eyes: No Symptoms Ears, Nose, & Throat: Nose Congestion, Nose Discharge Respiratory: Cough, Short Of Breath Cardiac: No Symptoms Abdominal/Gastrointestinal: No Symptoms Genitourinary Symptoms: No Symptoms Musculoskeletal: No Symptoms Skin: No Symptoms Objective Exam General Appearance: moderate distress, other (dyspneic with shortness of breath. ) Neurologic Exam: alert, cooperative Skin Exam: normal color, warm, dry, No rash Ears, Nose, Throat Exam: other (clear mucous from nose) Respiratory Exam: lungs clear, respiratory distress, accessory muscle use, prolonged expirations, No crackles/rales, No rhonchi, No wheezing Cardiovascular Exam: regular rate/rhythm, normal heart sounds, No murmur, No friction rub, No gallop Gastrointestinal/Abdomen Exam: soft, normal bowel sounds, No tenderness, No distention, No mass Extremity Exam: other (bilat above the knee amputations) OBJECTIVE DATA Vital Signs: Vital Signs - 24 hr Temp Pulse Resp BP Pulse Ox 01/12/17 07:52 98.3 F 71 20 136/99 95 01/12/17 07:19 92 L 01/12/17 07:15 76 20 92 L 01/12/17 04:00 98.7 F 62 18 125/57 99 01/12/17 02:44 62 18 99 01/12/17 00:00 98.9 F 66 18 165/78 100 01/11/17 22:53 72 18 100 01/11/17 20:00 98.4 F 77 24 121/58 88 L 01/11/17 19:26 91 L 01/11/17 19:23 80 26 H 91 L 01/11/17 18:00 20 01/11/17 16:00 98.0 F 60 22 143/66 100 01/11/17 15:00 59 L 20 97 01/11/17 14:00 20 01/11/17 11:31 98.1 F 83 20 117/56 92 L 01/11/17 11:00 69 22 98 01/11/17 10:00 24 Oxygen-Last 24 hours O2 Percentage 100% O2 Percentage 100% Pain Assessment - Last Documented Pain Intensity 0 Pain Scale Used 0-10 Pain Scale Intake and Output: Intake & Output 01/10/17 01/11/17 01/12/17 01/13/17 06:59 06:59 06:59 06:59 Intake Total 1639 4755 Output Total 1800 4400 1050 Balance -161 355 -1050 Weight 81.42 kg Lab Results: Accuchecks Date 01/11/17 Date 01/11/17 Time 16:30 Time 11:30 Accucheck Value: 463 Accucheck Value: 487 Accucheck Value: 433 Accucheck Value: 484 Lab Results-Last 24 Hours 01/11/17 01/12/17 01/12/17 Range/Units 05:10 05:01 05:01 WBC 7.0 9.4 (4.0-10.5) K/mm3 RBC 4.40 4.20 (4.1-5.6) M/mm3 Hgb 11.2 L 10.8 L (12.5-18.0) gm/dl Hct 36.9 L 35.6 L (42-50) % MCV 83.9 84.8 (78-100) fl MCH 25.4 L 25.7 L (26-32) pg MCHC 30.4 L 30.3 L (32-36) g/dl RDW 15.1 H 14.9 H (11.5-14.0) % Plt Count 340 342 (150-450) K/mm3 MPV 10.6 H 10.3 H (6-9.5) fl Segmented Neutrophils 96 H 94 H (36.-66.) % Lymphocytes (Manual) 3 L 4 L (24-44) % Monocytes (Manual) 1 2 (0.0-12.0) % Platelet Estimate NORMAL NORMAL (NORMAL) Polychromasia 1+ 1+ Poikilocytosis 1+ 1+ Anisocytosis 1+ 1+ Puncture Site pCO2 (35-45) mmHg pO2 (75-100) mmHg Base Excess (-2.0-2.0) O2 Saturation (94-100) g/dF ABG pH (7.35-7.45) ABG HCO3 (22-28) ABG O2 Sat (Measured) (95-100) % Richmond Test A-a Gradient a/A Ratio Hemoglobin Carboxyhemoglobin (0.0-6.9) % THgb Methemoglobin (1.4-1.5) % Temperature C POC O2 Flow Rate % Sodium 145 (136-145) mEq/L Potassium 4.6 (3.5-5.1) mEq/L Chloride 105 (98-107) mEq/L Carbon Dioxide 33.4 H (21-32) mEq/L Anion Gap 11.1 (5-15) MEQ/L BUN 20 (9-20) mg/dL Creatinine 0.98 (0.55-1.30) mg/dl Estimated GFR > 60 ML/MIN Glucose 392 H (70-110) MG/DL Calcium 8.3 L (8.5-10.1) mg/dL 01/12/17 Range/Units 05:54 WBC (4.0-10.5) K/mm3 RBC (4.1-5.6) M/mm3 Hgb (12.5-18.0) gm/dl Hct (42-50) % MCV (78-100) fl MCH (26-32) pg MCHC (32-36) g/dl RDW (11.5-14.0) % Plt Count (150-450) K/mm3 MPV (6-9.5) fl Segmented Neutrophils (36.-66.) % Lymphocytes (Manual) (24-44) % Monocytes (Manual) (0.0-12.0) % Platelet Estimate (NORMAL) Polychromasia Poikilocytosis Anisocytosis Puncture Site LEFT BRACHIAL pCO2 53 H (35-45) mmHg pO2 47 L* (75-100) mmHg Base Excess 7.7 H (-2.0-2.0) O2 Saturation 85.7 L (94-100) g/dF ABG pH 7.41 (7.35-7.45) ABG HCO3 33.6 H* (22-28) ABG O2 Sat (Measured) 86.0 L (95-100) % Richmond Test NOT APPLICABLE A-a Gradient 600 a/A Ratio 0.07 Hemoglobin 10.8 Carboxyhemoglobin 0.4 (0.0-6.9) % THgb Methemoglobin 0.0 L (1.4-1.5) % Temperature 37.0 C POC O2 Flow Rate 100 % Sodium (136-145) mEq/L Potassium 4.5 (3.5-5.1) mEq/L Chloride (98-107) mEq/L Carbon Dioxide (21-32) mEq/L Anion Gap (5-15) MEQ/L BUN (9-20) mg/dL Creatinine (0.55-1.30) mg/dl Estimated GFR ML/MIN Glucose (70-110) MG/DL Calcium (8.5-10.1) mg/dL Assessment/Plan (1) Pneumonia of both lower lobes Current Visit: Yes Status: Acute Assessment & Plan: Continue Zosyn Day 2 and azithromycin Day 3. Sputum culture is in lab. He is on oxygen, breathing treatments and steroids. He does not want any heroic measures taken. Will consult Dr. Nicola Jorge to see the patient if he is available today. His prognosis is guarded. Code(s): J18.9 - PNEUMONIA, UNSPECIFIED ORGANISM (2) Type 2 diabetes mellitus Current Visit: Yes Status: Acute Qualifiers: Diabetes mellitus complication status: with circulatory complication Diabetes mellitus complication detail: with other circulatory complications Diabetes mellitus business area director insulin use: with business area director use Qualified Code(s) : E11.59 - Type 2 diabetes mellitus with other circulatory complications; Z79.4 - dude wrangler (current) use of insulin Assessment & Plan: I will increase his long acting insulin again. Most likely his blood glucoses are running higher due to the steroids which he needs at this time due to the COPD. (3) COPD exacerbation Current Visit: Yes Status: Acute Assessment & Plan: Continue with IV steroids, IV antibiotics, oxygen and breathing treatments. I have not tried to wean his steroids yet due to his serious condition. Code(s): J44.1 - CHRONIC OBSTRUCTIVE PULMONARY DISEASE W (ACUTE) EXACERBATION (4) History of coronary artery disease Current Visit: Yes Status: Acute Assessment & Plan: Continue current medication. His old chart also says he has a history of a AAA. Code(s): Z86.79 - PERSONAL HISTORY OF OTHER DISEASES OF THE CIRCULATORY SYSTEM
[2017-01-12] MEDS ORDERED: Lantus Insulin SQ SCH ×2 (09:24→09:28)
[2017-01-12] MEDS ORDERED: NovoLOG Insulin SQ SCH (09:24)
[2017-01-12] MEDS: Flomax 0.4 MG PO SCH (10:00)
[2017-01-12] MEDS: ZOLOFT 50 MG TABLET PO SCH (10:00)
[2017-01-12] MEDS: Pepcid 20 MG VIAL IV SCH ×2 (10:01→22:39)
[2017-01-12] MEDS: Zanaflex 4 MG PO SCH ×3 (10:01→22:39)
[2017-01-12] MEDS: NEOSYNEPHRINE 0.5% NASAL SPRAY/DROPS NS PRN ×2 (10:01→23:57)
[2017-01-12] MEDS: ECOTRIN 81 MG PO SCH (10:01)
[2017-01-12] MEDS: PLAVIX 75 MG Tablet PO SCH (10:01)
[2017-01-12] MEDS: Tricor 145 MG PO SCH (10:01)
[2017-01-12] MEDS: Zithromax 500 MG/ 250 ML NaCl Premix 250 ML IV SCH (10:02)
--- NOTE | 2017-01-12 12:28 | CONS ---
CONSULT DATE: 01/12/2017 HISTORY: Tereso Velazquez is a 76 year-old male with history of chronic obstructive pulmonary disease for the last several years who had been brought into the emergency room via ambulance with complaints of shortness of breath. The patient has had history of chronic obstructive pulmonary disease and obstructive sleep apnea. Chest x-ray performed on 01/10/2017 revealed bilateral basilar infiltrates. He has been treated with IV antibiotics and noninvasive inhalation. The patient and family have requested DNR status. At the time of my evaluation he is drowsy, lethargic and does not answer questions. PAST MEDICAL HISTORY: Positive for chronic obstructive pulmonary disease, chronic respiratory failure, chronic obstructive sleep apnea, hypertension, hyperlipidemia, diabetes mellitus, peripheral vascular disease and arthritis. PAST SURGICAL HISTORY: He has had bilateral lower extremity amputations above knee from unknown cause. History of aortic bypass, shoulder replacement, cardiac catheterization, back surgery. PERSONAL AND SOCIAL HISTORY: The patient has been a smoker since age 9. Current smoking history is unknown. He is and lives with his family. MEDICATIONS: Home and current medications are reviewed. ALLERGIES: NKDA. PHYSICAL EXAMINATION: This is an elderly male who appears mildly tachypneic currently on high flow saturating 98%. Heart rate 80, blood pressure 122/76. HEENT: Normocephalic. Pupils are sluggishly reactive. Oral exam is limited. NECK: Supple. CVS: First and second heart sounds are normal, regular, rhythmic. RESPIRATORY: Shows diminished breath sounds, basilar crackles and scattered rhonchi are heard. ABDOMEN: Soft, obese. EXTREMITIES: Bilateral lower extremities above knee amputation are noted. LABORATORY DATA AND TESTS: Cultures have remained negative. White blood cell count 9.4, hemoglobin 10.8, hematocrit 36, PLT 242,000. Sodium 145, potassium 4.6, chloride 105, bicarb 34, glucose 392, BUN 20, creatinine 0.9. The pH 7.41, pCO2 53, pO2 47. Chest x-ray noted. ASSESSMENT: This is a 76 year old male with multiple health problems admitted with: 1) Chronic obstructive pulmonary disease with acute exacerbation. 2) Community acquired pneumonia bilateral. 3) Chronic respiratory failure with hypoxemia. 4) History of multiple comorbidities as listed above. 5) Obstructive sleep apnea. RECOMMENDATIONS: 1) The patient is being treated with IV antibiotics, bronchodilators, pulmonary toilet. 2) Clinically he has shown some improvement and would advise repeating chest x-ray prior to discharge to assess improvement in infiltrates. 3) I will follow up in office setting. Continue the supportive care, overall prognosis remains guarded due to age and comorbidities. Thank you for allowing me to participate in the care of Tereso Velazquez.
[2017-01-12] MEDS: ZOCOR 20MG PO SCH (22:39)
[2017-01-12] MEDS: Sodium Chloride 0.9% 1000 ML 1,000 ML IV SCH (22:51)
[2017-01-13] MEDS: DUONEB 0.5-3 MG/3 ml Neb IH SCH ×6 (03:14→23:07)
[2017-01-13 05:21] LABS: Mean Cell Volume 84.8 fl (78-100); Mean Platelet Volume 10.3 fl (6-9.5); Platelet Count 348 K/mm3 (150-450); Red Blood Count 4.22 M/mm3 (4.1-5.6); Red Cell Distribution Width 14.9 % (11.5-14.0); White Blood Count 9.7 K/mm3 (4.0-10.5)
[2017-01-13 05:24] LABS: Mean Corpuscular Hemoglobin 25.3 pg (26-32)
[2017-01-13] MEDS: solu-MEDROL 125 MG IV SCH ×4 (05:29→21:36)
[2017-01-13] MEDS: Zosyn 3.375GM/100 Ml D5W 100 ML IV SCH ×5 (05:30→23:18)
[2017-01-13 05:48] LABS: ANION GAP 9.4 MEQ/L (5-15); BLOOD UREA NITROGEN 16 mg/dL (9-20); CHLORIDE 101 mEq/L (98-107); Carbon Dioxide 32.4 mEq/L (21-32); Glucose 334 MG/DL (70-110); Potassium 4.4 mEq/L (3.5-5.1); SODIUM 138 mEq/L (136-145)
[2017-01-13 06:14] LABS: BAND 1 % (0.0-2.0); Nucleated Red Blood Cell 1 %; Total Cells Counted 100
[2017-01-13 06:15] LABS: Platelet Estimate NORMAL (NORMAL); Polychromasia 1+; Toxic Granulation 2+
[2017-01-13 06:16] LABS: ANISOCYTOSIS 1+
[2017-01-13] MEDS: TYLENOL 325 MG PO PRN (07:40)
[2017-01-13] MEDS: NovoLOG Insulin SQ SCH ×3 (08:17→17:10)
[2017-01-13] MEDS: Zanaflex 4 MG PO SCH ×3 (08:18→21:36)
[2017-01-13] MEDS: PLAVIX 75 MG Tablet PO SCH (08:18)
[2017-01-13] MEDS: Flomax 0.4 MG PO SCH (08:18)
[2017-01-13] MEDS: ZOLOFT 50 MG TABLET PO SCH (08:18)
[2017-01-13] MEDS: Tricor 145 MG PO SCH (08:18)
[2017-01-13] MEDS: ECOTRIN 81 MG PO SCH (08:18)
[2017-01-13] MEDS: Pepcid 20 MG VIAL IV SCH ×2 (08:18→21:36)
[2017-01-13] MEDS: NovoLOG Insulin SQ PRN ×4 (08:20→21:37)
[2017-01-13] MEDS: Zithromax 500 MG/ 250 ML NaCl Premix 250 ML IV SCH (08:20)
--- NOTE | 2017-01-13 08:42 | PCM.NOTE ---
Date and Time: 01/13/17 0837 Subjective Assessment: He reports that he is breathing better today. He continues to be on high flow oxygen. He confirms that when he is discharged, he plans to have [facility] ( [facility]) at home and his PCP will be Dr. George Magana. He reports frequent diarrhea since being here in the hospital. His blood pressure has been up. He denies any pain. His appetite has been good. - Review of Systems Constitutional: Fatigue Eyes: No Symptoms Ears, Nose, & Throat: No Symptoms Respiratory: Cough, Short Of Breath, Other (cough productive of sputum) Cardiac: No Symptoms Abdominal/Gastrointestinal: Diarrhea, No Constipation Genitourinary Symptoms: No Symptoms Musculoskeletal: No Symptoms Skin: No Symptoms Objective Exam General Appearance: no apparent distress Neurologic Exam: alert, cooperative, other (talkative) Skin Exam: normal color, warm, dry, No rash Respiratory Exam: prolonged expirations, other (distant breath sounds), No crackles/rales, No rhonchi, No wheezing Cardiovascular Exam: regular rate/rhythm, normal heart sounds, No murmur, No friction rub, No gallop Gastrointestinal/Abdomen Exam: soft, normal bowel sounds, No tenderness, No distention, No mass Extremity Exam: other (bilat above the knee amputations) OBJECTIVE DATA Vital Signs: Vital Signs - 24 hr Temp Pulse Resp BP Pulse Ox 01/13/17 07:45 98.0 F 86 20 190/81 92 L 01/13/17 07:00 87 24 85 L 01/13/17 06:00 24 01/13/17 04:00 97.9 F 75 24 157/88 91 L 01/13/17 03:00 75 24 91 L 01/13/17 02:00 24 01/13/17 00:00 98.2 F 73 24 158/71 97 01/12/17 23:00 74 24 97 01/12/17 22:00 20 01/12/17 20:00 97.8 F 95 H 22 167/83 91 L 01/12/17 19:11 89 28 H 94 L 01/12/17 16:00 98.3 F 86 20 155/67 95 01/12/17 14:49 97 H 24 94 L 01/12/17 12:00 98.8 F 80 18 156/67 100 01/12/17 11:10 64 24 95 Oxygen-Last 24 hours O2 Percentage 80% O2 Percentage 100% Pain Assessment - Last Documented Pain Intensity 5 Pain Scale Used 0-10 Pain Scale Intake and Output: Intake & Output 01/11/17 01/12/17 01/13/17 01/14/17 06:59 06:59 06:59 06:59 Intake Total 1638 6080 4192 720 Output Total 1110 0980 5888 Balance -161 355 -1653 720 Weight 81.42 kg Lab Results: Accuchecks Date 01/12/17 Time 21:45 Accucheck Value: 334 Accucheck Value: 374 Accucheck Value: 409 Accucheck Value: 365 Lab Results-Last 24 Hours 01/13/17 01/13/17 Range/Units 04:55 04:55 WBC 9.7 (4.0-10.5) K/mm3 RBC 4.22 (4.1-5.6) M/mm3 Hgb 10.7 L (12.5-18.0) gm/dl Hct 35.8 L (42-50) % MCV 84.8 (78-100) fl MCH 25.3 L (26-32) pg MCHC 29.9 L (32-36) g/dl RDW 14.9 H (11.5-14.0) % Plt Count 348 (150-450) K/mm3 MPV 10.3 H (6-9.5) fl Segmented Neutrophils 78 H (36.-66.) % Band Neutrophils 1 (0.0-2.0) % Lymphocytes (Manual) 17 L (24-44) % Monocytes (Manual) 4 (0.0-12.0) % Nucleated RBCs 1 % Differential Comment ABNORMAL Toxic Granulation 2+ Platelet Estimate NORMAL (NORMAL) Polychromasia 1+ Anisocytosis 1+ Sodium 138 (136-145) mEq/L Potassium 4.4 (3.5-5.1) mEq/L Chloride 101 (98-107) mEq/L Carbon Dioxide 32.4 H (21-32) mEq/L Anion Gap 9.4 (5-15) MEQ/L BUN 16 (9-20) mg/dL Creatinine 0.84 (0.55-1.30) mg/dl Estimated GFR > 60 ML/MIN Glucose 334 H (70-110) MG/DL Calcium 8.2 L (8.5-10.1) mg/dL Radiology Exams: Radiology Procedures Category Date Time Status CHEST 1 VIEW (PORTABLE) Routine Exams 01/13/17 08:00 Taken Assessment/Plan (1) Pneumonia of both lower lobes Current Visit: Yes Status: Acute Assessment & Plan: Continue Zosyn and azithromycin both started on 01/10/17. Tomorrow should be his last day of azithromycin. Continue with oxygen which he is currently using with the high flow machine. Overall prognosis is guarded. Dr. Nicola Zhao, telephone messenger, saw him yesterday and he ordered a repeat chest x-ray today. His sputum culture grew normal respiratory viktoria. Code(s): J18.9 - PNEUMONIA, UNSPECIFIED ORGANISM (2) Type 2 diabetes mellitus Current Visit: Yes Status: Acute Qualifiers: Diabetes mellitus complication status: with circulatory complication Diabetes mellitus complication detail: with other circulatory complications Diabetes mellitus snf insulin use: with manager intermediate use Qualified Code(s) : E11.59 - Type 2 diabetes mellitus with other circulatory complications; Z79.4 - intermediate (current) use of insulin Assessment & Plan: His blood glucoses were slightly better in the past 24 hours after I adjusted his insulin. He continues to require high doses of insulin most likely due to the steroids and insulin resistance. (3) COPD exacerbation Current Visit: Yes Status: Acute Assessment & Plan: Try to wean the IV steroids a little today. Continue with breathing treatments, oxygen, IV antibiotics and supportive care. Overall prognosis is guarded. Code(s): J44.1 - CHRONIC OBSTRUCTIVE PULMONARY DISEASE W (ACUTE) EXACERBATION (4) History of coronary artery disease Current Visit: Yes Status: Acute Assessment & Plan: Continue aspirin and plavix. Will restart his home antihypertensives now. Code(s): Z86.79 - PERSONAL HISTORY OF OTHER DISEASES OF THE CIRCULATORY SYSTEM (5) Diarrhea Current Visit: Yes Status: Acute Assessment & Plan: Check C. diff and if this is neg, will start imodium. Code(s): R19.7 - DIARRHEA, UNSPECIFIED (6) Hypertension Current Visit: Yes Status: Acute Assessment & Plan: Will restart home antihypertensives. Code(s): I10 - ESSENTIAL (PRIMARY) HYPERTENSION
--- NOTE | 2017-01-13 08:47 | XRAY ---
Indication: COPD. Comparison: January 10, 2017. Portable chest again rotated. Suspect worsening right mid to lower lung infiltrate/atelectasis with right lung volume loss. Remaining chest unchanged including subtle left base infiltrate/atelectasis and borderline cardiomegaly.
[2017-01-13] MEDS: Lopressor 25MG Tab PO SCH (09:52)
[2017-01-13] MEDS ORDERED: Zestril 5 MG PO SCH (10:00)
[2017-01-13] MEDS: ZOCOR 20MG PO SCH (21:36)
[2017-01-13] MEDS ORDERED: Lantus Insulin SQ SCH (22:00)
[2017-01-14] MEDS: Sodium Chloride 0.9% 1000 ML 1,000 ML IV SCH ×2 (02:00→04:04)
[2017-01-14] MEDS: DUONEB 0.5-3 MG/3 ml Neb IH SCH ×4 (03:10→14:29)
[2017-01-14 05:25] LABS: Mean Cell Volume 84.8 fl (78-100); Mean Corpuscular Hemoglobin 25.7 pg (26-32); Platelet Count 335 K/mm3 (150-450); Red Blood Count 4.35 M/mm3 (4.1-5.6); Red Cell Distribution Width 14.8 % (11.5-14.0)
[2017-01-14] MEDS: solu-MEDROL 125 MG IV SCH ×2 (05:30→13:30)
[2017-01-14] MEDS: Zosyn 3.375GM/100 Ml D5W 100 ML IV SCH ×3 (05:33→13:31)
[2017-01-14 05:47] LABS: ANION GAP 9.2 MEQ/L (5-15); BLOOD UREA NITROGEN 12 mg/dL (9-20); CHLORIDE 100 mEq/L (98-107); Carbon Dioxide 34.7 mEq/L (21-32); Glucose 318 MG/DL (70-110); SODIUM 139 mEq/L (136-145)
[2017-01-14 06:02] LABS: Metamyelocyte 2 %; Platelet Estimate NORMAL (NORMAL); Total Cells Counted 100
[2017-01-14 06:03] LABS: Basophilic Stippling 1+; Hypochromia 2+; Toxic Granulation 1+
[2017-01-14] MEDS: NovoLOG Insulin SQ SCH ×3 (07:38→17:00)
[2017-01-14] MEDS: NovoLOG Insulin SQ PRN ×2 (07:38→11:48)
[2017-01-14] MEDS ORDERED: Zestril 20 MG PO SCH (10:00)
[2017-01-14] MEDS: Zithromax 500 MG/ 250 ML NaCl Premix 250 ML IV SCH (10:23)
[2017-01-14] MEDS: Tricor 145 MG PO SCH (10:24)
[2017-01-14] MEDS: Lopressor 25MG Tab PO SCH (10:25)
[2017-01-14] MEDS: Pepcid 20 MG VIAL IV SCH (10:25)
[2017-01-14] MEDS: PLAVIX 75 MG Tablet PO SCH (10:25)
[2017-01-14] MEDS: Flomax 0.4 MG PO SCH (10:25)
[2017-01-14] MEDS: Zanaflex 4 MG PO SCH ×2 (10:25→15:39)
[2017-01-14] MEDS: ECOTRIN 81 MG PO SCH (10:25)
[2017-01-14] MEDS: ZOLOFT 50 MG TABLET PO SCH (10:26)
--- NOTE | 2017-01-14 11:21 | PCM.DCORD ---
- Discharge Discharge Date: 01/14/17 Disposition: Home, Self-Care Condition: Serious Prescriptions: New Prednisone 20 mg [Deltasone 20 mg] 20 mg PO UD #15 tablet Levofloxacin [Levofloxacin 500 MG Tablet] 500 mg PO DAILY #5 tablet Acetaminophen 325 mg [Tylenol 325 mg] 650 mg PO Q4H PRN PRN #0 tablet PRN Reason: Pain And/Or Fever Lisinopril 20 mg [Zestril 20 MG] 20 mg PO DAILY #30 tablet Continue Metformin HCl 1000 mg [Glucophage 1000 MG] 1,000 mg PO BID Aspirin EC 81 mg [Ecotrin 81 mg] 81 mg PO DAILY Clopidogrel Bisulfate 75 mg [PLAVIX 75 MG Tablet] 75 mg PO DAILY Ipratropium/Albuterol Sulfate [Iprat-Albut 0.5-3(2.5) mg/3 ml] 3 ml IH QIDPRN PRN PRN Reason: Shortness Of Breath Sertraline HCl 50 mg [Zoloft 50 mg Tablet] 75 mg PO DAILY Metoprolol Tartrate [Lopressor] 12.5 mg PO BID Tizanidine HCl 4 mg [Zanaflex 4 MG] 4 mg PO TID Acetaminophen 325 mg [Tylenol 325 mg] 325 mg PO Q4-6HPRN PRN PRN Reason: Pain Fenofibrate Nanocrystallized [Tricor] 160 mg PO DAILY Loperamide HCl [Imodium A-D] 2 mg PO UD Tamsulosin HCl 0.4 mg [Flomax 0.4 MG] 0.4 mg PO DAILY Simvastatin 40 mg [Zocor 40 mg] 40 mg PO DAILY Changed Insulin Detemir [Levemir] 70 units SQ HS #1 vial Insulin Aspart [NovoLOG Insulin] 24 units SQ TID #1 vial Discontinued Lisinopril [Zestril] 5 mg PO DAILY Furosemide 40 mg [Lasix 40 MG] 40 mg PO DAILY Fenofibrate Nanocrystallized [Fenofibrate] 145 mg PO DAILY Potassium Chloride 10 Meq Tab* [Klor Con 10 MEQ] 10 meq PO UD Additional Instructions: Your insulin doses have been increased. Please check your insulin before meals and before bedtime and alert your doctor if you have any low blood glucoses. Your lisinopril dose has been increased because your blood pressure was high here in the hospital. You will need to continue oxygen 10 L with an oximizer which [facility] as said they can supply. You are being discharged to home in the care of [facility] with Dr. Dinh as your primary care provider. Follow up with: TABATHA ROSENBERG [ACTIVE STAFF] - 1 Week (2-3 weeks followup upon discharge ) ELSA DINH [NON-STAFF PHY W/O PRIVILEGES] - 1 Week
[2017-01-14 16:16] VITALS: BP 163/81; PULSE 83; O2SAT 95
--- NOTE | 2017-01-17 10:08 | DS ---
DISCHARGE DIAGNOSES: 1) PNEUMONIA BOTH LOWER LOBES. 2) DIABETES MELLITUS TYPE 2. 3) CHRONIC OBSTRUCTIVE PULMONARY DISEASE EXACERBATION. 4) HISTORY OF CORONARY ARTERY DISEASE. 5) DIARRHEA. 6) HYPERTENSION. DISCHARGE PHYSICAL EXAMINATION: VITALS: Temperature current 98.1F, temperature max 98.3F, heart rate 75 to 95, respiratory rate 18 to 22, blood pressure 137 to 192 over 71 to 87. Oxygen saturation 96% on 50% Oxymizer. GENERAL: The patient is lying in bed a pleasant man with some mild dyspnea. He is on oxygen with Oxymizer by nasal cannula. He reports that he would like to go home today with [facility]. CVS: He has a regular rate and rhythm. No murmurs, gallops or rubs are appreciated. CHEST: He has distant breath sounds. No crackles or wheezes are appreciated when auscultated anteriorly. ABDOMEN: Soft, nontender, nondistended with normal bowel sounds. EXTREMITIES: He has above knee amputations bilaterally. SKIN: Warm, dry and intact. HOSPITAL COURSE: 1) PNEUMONIA LOWER LOBES BILATERALLY: He was on Zosyn and azithromycin which he completed five days of both. He had a sputum culture that grew normal respiratory viktoria. I plan on discharging him on levofloxacin 500 mg p.o. daily for five more days to complete a ten day course of antibiotics. He already completed a five day course of azithromycin. During his stay he needed high flow oxygen. Dr. Cole Jorge was consulted and saw him. He had a repeat chest x-ray that showed worsening of infiltrates. However clinically he was improving. The patient desired to go home with [facility]. They told us that they can supply the amount of oxygen that he needs at home and so we are planning on transferring him by ambulance to home today. The patient reports that he will be following up with [facility] doctor, Dr. Lazaro Magana. He also is to follow up with Dr. Cole Jorge, [employer] Supervisor. 2) DIABETES MELLITUS TYPE 2: During his hospitalization his blood sugars ran high and I tried to adjust his insulin. At the time of discharge he was on a significantly higher dose than he has been at home. He was on 70 units of long acting insulin and 24 units of short acting insulin with his meal which we will have him continue at home and I have written new prescriptions for these if he needs them. Hemoglobin A1C was 9.1. 3) CHRONIC OBSTRUCTIVE PULMONARY DISEASE EXACERBATION: He was on IV steroids during his hospitalization. I will send him home on prednisone 20 mg tablets 2 tablets p.o. daily for five days and 1 tablet p.o. daily for five days. Will continue his breathing treatments and oxygen as well as antibiotic as described above. 4) HISTORY OF CORONARY ARTERY DISEASE: He was continued on aspirin and Plavix. He initially was not on his home antihypertension as his blood pressure was low and these will be restarted. 5) DIARRHEA: He was on Imodium at home. He started to have diarrhea as I held the Imodium. I checked Clostridium difficile and this was negative and he was restarted on his home dose of Imodium. 6) HYPERTENSION: He was restarted on his home antihypertensive the day he was discharged. I increased his lisinopril 5 mg to 20 mg as he continued to have elevated blood pressures at the end of his hospitalization. DISCHARGE MEDICATIONS: He is resuming his home medications except the Fenofibrate was listed twice and I am only having him take 160 mg tablet. I am also having him stop the Lasix and potassium. He is also going to be on Levemir 70 units daily, NovoLog 24 units t.i.d. with meals, levofloxacin 500 mg p.o. daily for five days and prednisone 20 mg tablet 2 tablets daily for five days and then one tablet daily for five days and then per [facility] physician. DISPOSITION: The patient was discharged to home with [facility] to have Dr. Lazaro Magana follow up. PROGNOSIS: The patient's overall prognosis is poor. Life expectancy would be less than six months.
== END 2017-01-14 17:55 | disposition hospice, home (50) | DRG 190 ==
LOC: ED 11:37 → MED SURG 14:11
PROVIDERS: ADMIT Internal Medicine; ATTEND Internal Medicine
DX: J44.1 Chronic obstructive pulmonary disease with (acute) exacerbation (principal); J18.9 Pneumonia, unspecified organism; J96.11 Chronic respiratory failure with hypoxia; G47.33 Obstructive sleep apnea (adult) (pediatric); I10 Essential (primary) hypertension; E78.5 Hyperlipidemia, unspecified; E11.9 Type 2 diabetes mellitus without complications; Z79.4 Long term (current) use of insulin; I73.9 Peripheral vascular disease, unspecified; M19.90 Unspecified osteoarthritis, unspecified site; Z79.899 Other long term (current) drug therapy
CPT/HCPCS: 36415; 36600; 71010; 80048; 80053; 81000; 81002; 82375; 82803; 82805; 82962; 83036; 83605; 83880; 84134; 84484; 85025; 85027; 85610; 85730; 87040; 87070; 87086; 87631; 93005; 93041; 94640; 94660; 94760; 94762; 94770; 96365; 96374; 96375; 99285; J0456; J0696; J2543; J2930; P9612; A9270-GY

== ENCOUNTER 2017-01-19 17:53 | Emergency (ER) | payer MEDICARE ==
[2017-01-19] MEDS ORDERED: DUONEB 0.5-3 MG/3 ml Neb IH ONE ×4 (18:30→21:11)
[2017-01-19 18:46] LABS: A-aADO2 122; ARTERIAL BLD GAS O2 SATURATION 96.9 % (95-100); ARTERIAL BLOOD GAS BASE EXCESS -1.3 (-2.0-2.0); ARTERIAL BLOOD GAS FIO2 36 %; ARTERIAL BLOOD GAS PO2 91 mmHg (75-100); ARTERIAL BLOOD GAS pH 7.42 (7.35-7.45); Lactic Acid 2.1 (0.4-2.0)
[2017-01-19 18:50] LABS: Mean Cell Volume 80.9 fl (78-100); Mean Corpuscular Hemoglobin 25.4 pg (26-32); Mean Platelet Volume 10.6 fl (6-9.5); Platelet Count 333 K/mm3 (150-450); Red Blood Count 5.23 M/mm3 (4.1-5.6); White Blood Count 23.7 K/mm3 (4.0-10.5)
--- NOTE | 2017-01-19 18:57 | ERPHSYRPT ---
- History of Present Illness Time Seen by Provider: 01/19/17 18:12 Source: family Exam Limitations: clinical condition Patient Subjective Stated Complaint: altered loc Triage Nursing Assessment: per ems--family states at 1630 pt became confused and 'not speaking correctly'. 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 blinks on command. skin warm and dry. moist deep cough noted. Physician History: PATIENT WITH HISTORY OF TYPE 2 DIABETES, COPD, PREVIOUS CVA RIGHT HEMIPARESIS IN 06/2016, DEVELOPED ONSET OF CONFUSION, SLURRED SPEECH AT 1730. PATIENT RECENTY HOSPITALIZED FOR PNEUMONIA AND COPD 1 WEEK AGO. PATIENT HAS A PRODUCTIVE COUGH ASSOCIATED WITH DIFFICULTY BREATHING. Timing/Duration: today Severity: moderate Character of Deficits: impaired speech, other (PREVIOUS RIGHT HEMIPARESIS) Baseline/Normal Cognition: alert but confused Current Cognition: alert but confused Baseline Gait: unable to walk (BILAT AMPUTEE) Associated Symptoms: slurred speech Allergies/Adverse Reactions: No Known Drug Allergies Allergy (Verified 01/19/17 18:41) Home Medications: Aspirin EC 81 mg [Ecotrin 81 mg] 81 mg PO DAILY 02/27/13 [History] Metformin HCl 1000 mg [Glucophage 1000 MG] 1,000 mg PO BID 02/27/13 [History] Clopidogrel Bisulfate 75 mg [PLAVIX 75 MG Tablet] 75 mg PO DAILY 10/27/16 [History] Ipratropium/Albuterol Sulfate [Iprat-Albut 0.5-3(2.5) mg/3 ml] 3 ml IH QIDPRN PRN 10/27/16 [History] Acetaminophen 325 mg [Tylenol 325 mg] 325 mg PO Q4-6HPRN PRN 01/10/17 [ History] Loperamide HCl [Imodium A-D] 2 mg PO UD 01/10/17 [History] Metoprolol Tartrate [Lopressor] 12.5 mg PO DAILY 01/10/17 [History] Sertraline HCl 50 mg [Zoloft 50 mg Tablet] 75 mg PO DAILY 01/10/17 [History] Simvastatin 40 mg [Zocor 40 mg] 40 mg PO HS 01/10/17 [History] Tamsulosin HCl 0.4 mg [Flomax 0.4 MG] 0.4 mg PO DAILY 01/10/17 [History] Tizanidine HCl 4 mg [Zanaflex 4 MG] 4 mg PO TID 01/10/17 [History] Lisinopril 20 mg [Zestril 20 MG] 5 mg PO DAILY 01/19/17 [History] Hx Tetanus, Diphtheria Vaccination/Date Given: Yes Hx Influenza Vaccination/Date Given: (UNSURE) Hx Pneumococcal Vaccination/Date Given: (UNSURE) - Review of Systems Constitutional: No Fever, No Chills Eyes: No Symptoms Ears, Nose, & Throat: No Symptoms Respiratory: Cough, Dyspnea Cardiac: No Chest Pain, No Edema, No Syncope Abdominal/Gastrointestinal: No Symptoms, No Abdominal Pain, No Nausea, No Vomiting, No Diarrhea Genitourinary Symptoms: No Symptoms, No Dysuria Musculoskeletal: No Back Pain, No Neck Pain Skin: No Rash Neurological: Speech Changes, No Dizziness, No Focal Weakness, No Sensory Changes Psychological: No Symptoms Endocrine: No Symptoms All Other Systems: Reviewed and Negative - Past Medical History Pertinent Past Medical History: Yes Neurological History: No Pertinent History, Stroke ENT History: No Pertinent History Cardiac History: Aneurysm, Coronary Artery Disease, Hypertension, Myocardial Infarction (MT), Peripheral Vascular Disease Respiratory History: Bronchitis, COPD, Emphysema, Sleep Apnea Endocrine Medical History: Diabetes Type II, Liver Disease Musculoskeletal History: Arthritis GI Medical History: No Pertinent History History: No Pertinent History Psycho-Social History: Depression Male Reproductive Disorders: No Pertinent History - Past Surgical History Past Surgical History: Yes Neuro Surgical History: No Pertinent History Cardiac: Cardiac Catheterization Respiratory: No Pertinent History Gastrointestinal: Appendectomy, Hernia Repair Genitourinary: No Pertinent History Musculoskeletal: Orthopedic Surgery Male Surgical History: No Pertinent History Other Surgical History: LEFT THUMB X3, BACK SURGERY, LEFT SHOULDER. PAXTON ABOVE KNEE AMPUTEE - Social History Smoking Status: Former smoker How long have you smoked: 63 YRS. Exposure to second hand smoke: No Alcohol Use: Socially Drug Use: none Patient Lives Alone: No Significant Family History: heart disease, diabetes, hypertension - Nursing Vital Signs Nursing Vital Signs: Initial Vital Signs Pulse Rate 90 Respiratory Rate 24 Blood Pressure [] 112/74 - Marshal Coma Scale Best Eye Response (Marshal): (4) open spontaneously Best Verbal Response (Marshal): (5) oriented Best Motor Response (Marshal): (6) obeys commands [place] Total: 15 - Physical Exam General Appearance: no apparent distress, alert Eye Exam: bilateral eye: normal inspection, PERRL, EOMI Ears, Nose, Throat Exam: normal ENT inspection, moist mucous membranes Neck Exam: normal inspection, non-tender, supple Respiratory: normal breath sounds, lungs clear, airway intact, No respiratory distress Cardiovascular: regular rate/rhythm, tachycardia, No edema Gastrointestinal: soft, normal bowel sounds (NONTENDER), No tenderness, No distention Back Exam: normal inspection Extremity Exam: normal inspection, No pedal edema Peripheral Pulses: carotid (R): 2+, carotid (L): 2+, femoral (R): 2+, femoral (L ): 2+, dorsalis-pedis (R): 2+ 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, 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: normal hearing, tongue midline Motor/Sensory: no motor deficit (RIGHT HEMIPARESIS, FROM PREVIOUS STROKE 06/2016) Skin Exam: normal color, warm, dry, No rash SpO2 Interpretation: normal SpO2: 96 Oxygen Delivery: Nasal Cannula - Course EKG Interpreted by Me: RATE, Sinus Tach, NORMAL AXIS - Radiology Exams Chest X-ray Interpretation: Interpreted by me (BILATERAL LOWER LOBE INFILTRATES) - CT Exams Head CT Interpretation: Tele-radiologist Report (THERE IS A LEFT HIGH FRONTAL INFARCT APPEARING AT LEAST SUBACUTE, BUT VERY LIKELY CHRONIC, MAXILLARY SINUS AIR FLUID LEVELS SUGGESTING ACUTE MAXILLARY SINUSITIS WITH SUPERIMPOSED ON MORE CHRONIC PANSINUSITIS) Ordered Tests: Active Orders 24 hr Category Date Time Status Rescue Worker STAT Care 01/19/17 18:25 Active Catheter-[place] STAT Care 01/19/17 18:25 Active EKG-ER Only STAT Care 01/19/17 18:25 Active IV Insertion STAT Care 01/19/17 19:08 Active IV Insertion-2nd Peripheral STAT Care 01/19/17 18:25 Inactive IV Insertion-2nd Peripheral STAT Care 01/19/17 19:08 Active Oxygen-ED Only NASAL CANNULA 2 lpm Care 01/19/17 18:25 Active Pulse Oximetry (ED) STAT Care 01/19/17 18:25 Active CHEST 1 VIEW (PORTABLE) Stat Exams 01/19/17 18:25 Taken HEAD WITHOUT CONTRAST [CT] Stat Exams 01/19/17 17:54 Taken ARTERIAL BLOOD GASES Stat Lab 01/19/17 18:26 Completed BLOOD CULTURE Stat Lab 01/19/17 19:27 Received CBC W DIFF Stat Lab 01/19/17 18:47 Completed CMP Stat Lab 01/19/17 18:47 Completed Lactic Acid Stat Lab 01/19/17 18:26 Completed MAGNESIUM Stat Lab 01/19/17 18:47 Completed Manual Differential NC Stat Lab 01/19/17 18:47 Completed TROPONIN Stat Lab 01/19/17 18:47 Completed UA W/ MICROSCOPIC Stat Lab 01/19/17 19:30 Completed Respiratory Nebulizer STAT RT 01/19/17 18:30 Completed Respiratory Nebulizer STAT RT 01/19/17 21:04 Completed Medication Summary Generic Name Dose Route Start Last Admin Trade Name Freq PRN Reason Stop Dose Admin Azithromycin 250 mls @ 250 mls/hr 01/20/17 10:00 01/19/17 19:48 Zithromax 500 Mg/ 250 Ml Nacl Premix IV 02/19/17 09:59 250 mls/hr Q24H10 VENESSA Administration Discontinued Medications Generic Name Dose Route Start Last Admin Trade Name Freq PRN Reason Stop Dose Admin Albuterol/Ipratropium 3 ml 01/19/17 18:30 01/19/17 18:34 Duoneb 0.5-3 Mg/3 Ml Neb IH 01/19/17 18:31 3 ml STAT ONE Administration Albuterol/Ipratropium Confirm 01/19/17 18:32 Duoneb 0.5-3 Mg/3 Ml Neb Administered 01/19/17 18:33 Dose 3 ml IH .STK-MED ONE Albuterol/Ipratropium 3 ml 01/19/17 21:04 01/19/17 21:12 Duoneb 0.5-3 Mg/3 Ml Neb IH 01/19/17 21:05 3 ml STAT ONE Administration Albuterol/Ipratropium Confirm 01/19/17 21:11 Duoneb 0.5-3 Mg/3 Ml Neb Administered 01/19/17 21:12 Dose 3 ml IH .STK-MED ONE Sodium Chloride 1,000 mls @ 999 mls/hr 01/19/17 18:28 01/19/17 19:47 Sodium Chloride 0.9% 1000 Ml IV 01/19/17 19:28 999 mls/hr .Q1H1M STA Administration Sodium Chloride Confirm 01/19/17 18:58 Sodium Chloride 0.9% 1000 Ml Administered 01/19/17 18:59 Dose 1,000 mls @ ud .ROUTE .STK-MED ONE Piperacillin Sod/Tazobactam 100 mls @ 100 mls/hr 01/19/17 19:11 01/19/17 19: 29 Sod 4.5 gm/ Dextrose IV 01/19/17 20:10 100 mls/hr STAT ONE Administration Dextrose Confirm 01/19/17 19:21 D5w 100ml Mini Bag 100 Ml Administered 01/19/17 19:22 Dose 100 mls @ ud IV .STK-MED ONE Azithromycin Confirm 01/19/17 19:47 Zithromax 500 Mg/ 250 Ml Nacl Premix Administered 01/19/17 19:48 Dose 250 mls @ ud IV .STK-MED ONE Sodium Chloride Confirm 01/19/17 19:47 Sodium Chloride 0.9% 1000 Ml Administered 01/19/17 19:48 Dose 1,000 mls @ ud .ROUTE .STK-MED ONE Magnesium Sulfate/Dextrose 100 mls @ 200 mls/hr 01/19/17 21:01 01/19/17 21:05 Magnesium 1 Gm / 100 Ml D5w IV 01/19/17 21:30 200 mls/hr STAT ONE Administration Magnesium Sulfate/Dextrose Confirm 01/19/17 21:03 Magnesium 1 Gm / 100 Ml D5w Administered 01/19/17 21:04 Dose 100 mls @ ud IV .STK-MED ONE Sodium Chloride Confirm 01/19/17 21:03 Sodium Chloride 0.9% 1000 Ml Administered 01/19/17 21:04 Dose 1,000 mls @ ud .ROUTE .STK-MED ONE Piperacillin Sod/Tazobactam Sod Confirm 01/19/17 19:21 Zosyn Inj Administered 01/19/17 19:22 Dose 4.5 gm IV .STK-MED ONE Lab/Rad Data: Laboratory Result Diagrams 01/19/17 18:47 01/19/17 18:47 Laboratory Results 01/19/17 01/19/17 01/19/17 Range/Units 19:30 18:47 18:47 WBC (4.0-10.5) K/mm3 RBC (4.1-5.6) M/mm3 Hgb (12.5-18.0) gm/dl Hct (42-50) % MCV (78-100) fl MCH (26-32) pg MCHC (32-36) g/dl RDW (11.5-14.0) % Plt Count (150-450) K/mm3 MPV (6-9.5) fl Segmented Neutrophils (36.-66.) % Lymphocytes (Manual) (24-44) % Monocytes (Manual) (0.0-12.0) % Eosinophils (Manual) (0.00-3.0) % Differential Comment Platelet Estimate (NORMAL) Puncture Site pCO2 (35-45) mmHg pO2 (75-100) mmHg Base Excess (-2.0-2.0) O2 Saturation (94-100) g/dF ABG pH (7.35-7.45) ABG HCO3 (22-28) ABG O2 Sat (Measured) (95-100) % [place] Test A-a Gradient a/A Ratio Hemoglobin Carboxyhemoglobin (0.0-6.9) % THgb Methemoglobin (1.4-1.5) % Potassium 5.3 H (3.5-5.1) Temperature C POC O2 Flow Rate % Sodium 135 L (136-145) mEq/L Chloride 100 (98-107) mEq/L Carbon Dioxide 25.6 (21-32) mEq/L Anion Gap 15.0 (5-15) MEQ/L BUN 30 H (9-20) mg/dL Creatinine 1.47 H (0.55-1.30) mg/dl Estimated GFR 50 ML/MIN Glucose 170 H (70-110) MG/DL Lactic Acid (0.4-2.0) Calcium 8.8 (8.5-10.1) mg/dL Magnesium 1.3 L (1.8-2.4) mg/dL Total Bilirubin 0.3 (0.2-1.0) mg/dL AST 12 L (15-37) U/L ALT 20 (12-78) U/L Alkaline Phosphatase 56 (46-116) U/L Troponin I 0.051 (0.000-0.056) ng/ml Serum Total Protein 7.0 (6.4-8.2) gm/dL Albumin 2.8 L (3.4-5.0) g/dL Ur Collection Type CCMS Urine Color YELLOW (YELLOW) Urine Appearance CLOUDY (CLEAR) Urine pH 5.0 (5-6) Ur Specific [place] >=1.030 (1.005-1.025) Urine Protein >=300 (Negative) Urine Glucose (UA) NEGATIVE (NEGATIVE) mg/dL Urine Ketones SMALL-15 (NEGATIVE) Urine Nitrite NEGATIVE (NEGATIVE) Urine Bilirubin MODERATE (NEGATIVE) Urine Urobilinogen 1 (0-1) mg/dL Urine WBC (Auto) SMALL (NEGATIVE) Urine RBC (Auto) LARGE (0-5) Elio/ul Urine Microscopic RBC 25-50 (0-2) /HPF Urine Microscopic WBC 25-50 (0-5) /HPF Ur Epithelial Cells FEW (FEW) /HPF Amorphous Crystals MODERATE (NEGATIVE) /HPF Urine Bacteria MODERATE (NEGATIVE) /HPF Specimen Received 01-19-17192901/19/17 01/19/17 Range/Units 18:47 18:26 WBC 23.7 H (4.0-10.5) K/mm3 RBC 5.23 (4.1-5.6) M/mm3 Hgb 13.3 (12.5-18.0) gm/dl Hct 42.3 (42-50) % MCV 80.9 (78-100) fl MCH 25.4 L (26-32) pg MCHC 31.4 L (32-36) g/dl RDW 16.0 H (11.5-14.0) % Plt Count 333 (150-450) K/mm3 MPV 10.6 H (6-9.5) fl Segmented Neutrophils 81 H (36.-66.) % Lymphocytes (Manual) 15 L (24-44) % Monocytes (Manual) 3 (0.0-12.0) % Eosinophils (Manual) 1 (0.00-3.0) % Differential Comment NORMAL Platelet Estimate NORMAL (NORMAL) Puncture Site LEFT BRACHIAL pCO2 35 (35-45) mmHg pO2 91 (75-100) mmHg Base Excess -1.3 (-2.0-2.0) O2 Saturation 96.4 (94-100) g/dF ABG pH 7.42 (7.35-7.45) ABG HCO3 22.7 (22-28) ABG O2 Sat (Measured) 96.9 (95-100) % [place] Test na A-a Gradient 122 a/A Ratio 0.43 Hemoglobin 13.0 Carboxyhemoglobin 0.5 (0.0-6.9) % THgb Methemoglobin 0.0 L (1.4-1.5) % Potassium 5.5 H (3.5-5.1) Temperature 37.0 C POC O2 Flow Rate 36 % Sodium (136-145) mEq/L Chloride (98-107) mEq/L Carbon Dioxide (21-32) mEq/L Anion Gap (5-15) MEQ/L BUN (9-20) mg/dL Creatinine (0.55-1.30) mg/dl Estimated GFR ML/MIN Glucose (70-110) MG/DL Lactic Acid 2.1 H (0.4-2.0) Calcium (8.5-10.1) mg/dL Magnesium (1.8-2.4) mg/dL Total Bilirubin (0.2-1.0) mg/dL AST (15-37) U/L ALT (12-78) U/L Alkaline Phosphatase (46-116) U/L Troponin I (0.000-0.056) ng/ml Serum Total Protein (6.4-8.2) gm/dL Albumin (3.4-5.0) g/dL Ur Collection Type Urine Color (YELLOW) Urine Appearance (CLEAR) Urine pH (5-6) Ur Specific [place] (1.005-1.025) Urine Protein (Negative) Urine Glucose (UA) (NEGATIVE) mg/dL Urine Ketones (NEGATIVE) Urine Nitrite (NEGATIVE) Urine Bilirubin (NEGATIVE) Urine Urobilinogen (0-1) mg/dL Urine WBC (Auto) (NEGATIVE) Urine RBC (Auto) (0-5) Elio/ul Urine Microscopic RBC (0-2) /HPF Urine Microscopic WBC (0-5) /HPF Ur Epithelial Cells (FEW) /HPF Amorphous Crystals (NEGATIVE) /HPF Urine Bacteria (NEGATIVE) /HPF Specimen Received - Progress Progress Note: 01/19/17 21:18 PLACED ON SEPTIC PROTOCOL,30ML/KG GIVEN OVER 3 HOURS, AFTER 2 SETS OF BLOOD CULTURES ZOSYN 4.5GM AND ZITHROMAX 500MG IVPB, FOLLOWED BY DUO NEB AEROSOL X 2, INITIAL LACTIC ACID 2.1, BP 66/36 IMPROVED TO BP96/46, PULSE IMPROVED FROM 135 TO PULSE OF 90 04/13/17 21:24 Discussed with : Other (DISCUSSED WITH HOSPITALIST DR TAYLOR AT [address] [place] [address] ACCEPTS TRANSFER VIA [facility]) - Departure Time of Disposition: 23:00 Departure Disposition: Transfer Clinical Impression: TRANSIENT ISCHEMIC ATTACK, PNEUMONIA WITH SEPSIS, URINARY TRACT INFECTION Condition: Serious Critical Care Time: No Referrals: CYNTHIA DUMONT [Primary Care Provider] -
[2017-01-19] MEDS ORDERED: Sodium Chloride 0.9% 1000 ML 1,000 ML ONE ×3 (18:58→21:03)
[2017-01-19] MEDS: Sodium Chloride 0.9% 1000 ML 1,000 ML IV STA ×2 (19:07→19:47)
[2017-01-19] MEDS ORDERED: Zosyn INJ 4.5 GM in D5w 100ML Mini Bag 100 ML 100 ML IV ONE (19:11)
[2017-01-19 19:15] LABS: ALBUMIN 2.8 g/dL (3.4-5.0); BILIRUBIN,TOTAL 0.3 mg/dL (0.2-1.0); Carbon Dioxide 25.6 mEq/L (21-32); MAGNESIUM 1.3 mg/dL (1.8-2.4); Potassium 5.3 mEq/L (3.5-5.1)
[2017-01-19] MEDS ORDERED: Zosyn INJ IV ONE (19:21)
[2017-01-19] MEDS ORDERED: D5w 100ML Mini Bag 100 ML 100 ML IV ONE (19:21)
[2017-01-19 19:46] LABS: Collection Type CCMS
[2017-01-19 19:47] LABS: Bacteria MODERATE /HPF (NEGATIVE); COMPLETE URINE MICROSCOPIC? YES; Epithelial Cells FEW /HPF (FEW); WBC 25-50 /HPF (0-5)
[2017-01-19] MEDS ORDERED: Zithromax 500 MG/ 250 ML NaCl Premix 250 ML IV ONE (19:47)
[2017-01-19 20:24] LABS: Eosinophil 1 % (0.00-3.0); Total Cells Counted 100
[2017-01-19 20:25] LABS: Platelet Estimate NORMAL (NORMAL)
[2017-01-19] MEDS ORDERED: Magnesium 1 Gm / 100 Ml D5W*** 100 ML IV ONE ×2 (21:01→21:03)
[2017-01-19 23:14] VITALS: BP 112/75; PULSE 94; O2SAT 96
--- NOTE | 2017-01-20 08:32 | XRAY ---
Indication: Altered mental status. Multiple contiguous axial images obtained through the head without contrast. Comparison: None Age-appropriate global atrophy, mild periventricular degenerative micro-ischemia bilaterally, and old left frontal infarct. No acute intracranial hemorrhage, hydrocephalus, or mass effect. Bony calvarium intact. There is pansinusitis. Near complete opacification of the right mastoid air cells presumed inflammatory. Impression: 1. Nonacute senile brain with old left frontal infarct. 2. Incidental pansinusitis. 3. Opacification of the right mastoid air cells presumed inflammatory. Comment: Preliminary interpretation was made by [facility]. No discrepancy. CTDI 66.59
--- NOTE | 2017-01-20 08:35 | XRAY ---
Indication: Cough. Comparison: January 13, 2017. Portable chest better inflated and less rotated with interval diminished right mid to lower lung infiltrate/atelectasis. Left lung clear. Heart is not enlarged. No new cardiopulmonary abnormalities.
[2017-01-20] MEDS ORDERED: Zithromax 500 MG/ 250 ML NaCl Premix 250 ML IV SCH (10:00)
== END 2017-01-19 23:13 | disposition short-term general hospital (02) ==
LOC: ED 17:53
DX: G45.9 Transient cerebral ischemic attack, unspecified (principal); A41.9 Sepsis, unspecified organism; J16.8 Pneumonia due to other specified infectious organisms; N39.0 Urinary tract infection, site not specified; E11.9 Type 2 diabetes mellitus without complications; J44.9 Chronic obstructive pulmonary disease, unspecified; Z79.899 Other long term (current) drug therapy; Z79.84 Long term (current) use of oral hypoglycemic drugs; I10 Essential (primary) hypertension; I25.2 Old myocardial infarction; I25.10 Atherosclerotic heart disease of native coronary artery without angina pectoris
CPT/HCPCS: 36415; 36600; 51702; 70450; 71010; 80053; 81000; 82375; 82803; 83605; 83735; 84484; 85025; 87040; 93005; 93041; 94640; 96360; 96361; 96365; 96367; 99285; J0456; J2543; J3475; A9270-GY

== ENCOUNTER 2017-09-07 06:18 | Inpatient (IN) | payer MEDICARE ==
[2017-09-07] MEDS ORDERED: D50W 50 ml Abboject IV ONE ×2 (06:21→06:24)
[2017-09-07] MEDS ORDERED: DUONEB 0.5-3 MG/3 ml Neb IH ONE ×2 (06:26→06:38)
[2017-09-07] MEDS ORDERED: Sodium Chloride 0.9% 1000 ML 1,000 ML IV SCH (06:30)
[2017-09-07 06:35] LABS: Lactic Acid 3.7 (0.4-2.0); VBG BASE EXCESS 5.8 (-2.0-2.0); VBG CARBOXYHEMOGLOBIN 1.9 % T HGB (0.0-6.9); VBG HCO3- 32.1 meq/L (22-28); VBG HEMOGLOBIN 12.5; VBG O2 SATURATION 30.6 (95-100); VBG pH 7.39 (7.32-7.42)
--- NOTE | 2017-09-07 06:44 | ERPHSYRPT ---
- History of Present Illness Source: patient, EMS Patient Subjective Stated Complaint: per ems, pt's family had stated that "pt just wasnt himself tonight" Triage Nursing Assessment: pt awake and alert, garbled speech. pt arrive per ambulance[facility] of 4. ariza cath in place with cloudy yellow urine with sediment noted. o2 on al 3l per nc. respirations nonlabored. bilat aka. Hx Tetanus, Diphtheria Vaccination/Date Given: Yes Hx Influenza Vaccination/Date Given: (UNSURE) Hx Pneumococcal Vaccination/Date Given: (UNSURE) <LISA ALBERTO - Last Filed: 09/07/17 06:52> <JANNETTE JACKMAN - Last Filed: 09/07/17 09:16> - History of Present Illness Time Seen by Provider: 09/07/17 06:21 Physician History: CC: not himself Hx: 77 y/o hospice pt from home brought to ER. EMS reported family told them he was not himself all night, they were up with him all night. He was not able to talk and they felt he had a stroke. He was admitted at [facility] with aspiration pneumonia. Home on hospice. Hx DM. Post bilateral leg amputations. Pt unable to give much hx. (LISA ALBERTO) Allergies/Adverse Reactions: No Known Drug Allergies Allergy (Verified 09/07/17 07:19) Home Medications: Aspirin EC 81 mg [Ecotrin 81 mg] 81 mg PO DAILY 02/27/13 [History] Metformin HCl 1000 mg [Glucophage 1000 MG] 1,000 mg PO BID 02/27/13 [History] Clopidogrel Bisulfate 75 mg [PLAVIX 75 MG Tablet] 75 mg PO DAILY 10/27/16 [History] Ipratropium/Albuterol Sulfate [Iprat-Albut 0.5-3(2.5) mg/3 ml] 3 ml IH QIDPRN PRN 10/27/16 [History] Acetaminophen 325 mg [Tylenol 325 mg] 325 mg PO Q4-6HPRN PRN 01/10/17 [ History] Loperamide HCl [Imodium A-D] 2 mg PO UD 01/10/17 [History] Metoprolol Tartrate [Lopressor] 12.5 mg PO DAILY 01/10/17 [History] Sertraline HCl 50 mg [Zoloft 50 mg Tablet] 75 mg PO DAILY 01/10/17 [History] Simvastatin 40 mg [Zocor 40 mg] 40 mg PO HS 01/10/17 [History] Tamsulosin HCl 0.4 mg [Flomax 0.4 MG] 0.4 mg PO DAILY 01/10/17 [History] Tizanidine HCl 4 mg [Zanaflex 4 MG] 4 mg PO TID 01/10/17 [History] Lisinopril 20 mg [Zestril 20 MG] 5 mg PO DAILY 01/19/17 [History] - Review of Systems Respiratory: Cough, Dyspnea Cardiac: No Chest Pain Abdominal/Gastrointestinal: No Vomiting All Other Systems: Unable due to condition <LISA ALBERTO - Last Filed: 09/07/17 06:52> - Past Medical History Pertinent Past Medical History: Yes Neurological History: No Pertinent History, Stroke ENT History: No Pertinent History Cardiac History: Aneurysm, Coronary Artery Disease, Hypertension, Myocardial Infarction (ND), Peripheral Vascular Disease Respiratory History: Bronchitis, COPD, Emphysema, Sleep Apnea Endocrine Medical History: Diabetes Type II, Liver Disease Musculoskeletal History: Arthritis GI Medical History: No Pertinent History History: No Pertinent History Psycho-Social History: Depression Male Reproductive Disorders: No Pertinent History - Past Surgical History Past Surgical History: Yes Neuro Surgical History: No Pertinent History Cardiac: Cardiac Catheterization Respiratory: No Pertinent History Gastrointestinal: Appendectomy, Hernia Repair Genitourinary: No Pertinent History Musculoskeletal: Orthopedic Surgery Male Surgical History: No Pertinent History Other Surgical History: LEFT THUMB X3, BACK SURGERY, LEFT SHOULDER. PAXTON ABOVE KNEE AMPUTEE - Social History Smoking Status: Former smoker How long have you smoked: 63 YRS. Exposure to second hand smoke: No Alcohol Use: Socially Drug Use: none Patient Lives Alone: No (home with family, he is on hospice apparently) Significant Family History: heart disease, diabetes, hypertension <LISA ALBERTO - Last Filed: 09/07/17 06:52> - Physical Exam General Appearance: alert, other (mostly coherent but at times mumbly speech) Eye Exam: PERRL/EOMI Ears, Nose, Throat Exam: dry mucous membranes Neck Exam: supple Respiratory Exam: rhonchi, other (loose cough), No respiratory distress Cardiovascular Exam: regular rate/rhythm Gastrointestinal/Abdomen Exam: soft, distention, No tenderness Male Genitalia Exam: normal genitalia (indwelling ariza chronically which is changed every Monday) Extremity Exam: other (post bilateral leg amputation) Neurologic Exam: alert, other (mildy weak with decreased strength left, flaccid right, right facial droop) Skin Exam: warm, dry SpO2 Interpretation: normal SpO2: 96 Oxygen Delivery: Room Air <LISA ALBERTO - Last Filed: 09/07/17 06:52> - Nursing Vital Signs Nursing Vital Signs: Initial Vital Signs Pulse Rate 67 09/07/17 06:21 Respiratory Rate 30 H 09/07/17 06:21 Blood Pressure 102/51 09/07/17 06:21 O2 Sat by Pulse Oximetry 96 09/07/17 06:21 Pain Scale Pain Intensity 0 - Course Nursing assessment & vital signs reviewed: Yes EKG Interpreted by Me: RATE (63), Non-specific ST Changes, Other (low amplitude , junctional rhythm) <LISA ALBERTO - Last Filed: 09/07/17 06:52> Ordered Tests: Active Orders 24 hr Category Date Time Status Accucheck STAT Care 09/07/17 06:21 Active Accucheck STAT Care 09/07/17 07:06 Active Catheter-Drury Ariza STAT Care 09/07/17 06:21 Active EKG-ER Only STAT Care 09/07/17 06:21 Active IV Insertion STAT Care 09/07/17 06:21 Active Oxygen-ED Only NASAL CANNULA 2 lpm Care 09/07/17 06:21 Active Pulse Oximetry (ED) STAT Care 09/07/17 06:21 Active Rectal Temperature STAT Care 09/07/17 06:27 Active CHEST 1 VIEW (PORTABLE) Stat Exams 09/07/17 06:21 Taken HEAD WITHOUT CONTRAST [CT] Stat Exams 09/07/17 06:28 Taken BLOOD CULTURE Stat Lab 09/07/17 07:00 Received CBC W DIFF Stat Lab 09/07/17 06:40 Completed CMP Stat Lab 09/07/17 06:40 Completed CULTURE,URINE Stat Lab 09/07/17 06:21 Received Lactic Acid Stat Lab 09/07/17 08:35 Ordered Lactic Acid Urgent Lab 09/07/17 06:30 Completed Manual Differential NC Stat Lab 09/07/17 06:40 Completed NT PRO BNP Stat Lab 09/07/17 06:40 Completed PROTIME WITH INR Stat Lab 09/07/17 06:40 Completed PTT Stat Lab 09/07/17 06:40 Completed TROPONIN Q3H Lab 09/07/17 06:30 Completed TROPONIN Q3H Lab 09/07/17 09:30 Ordered TROPONIN Q3H Lab 09/07/17 12:30 Ordered TROPONIN Q3H Lab 09/07/17 15:30 Ordered TROPONIN Q3H Lab 09/07/17 18:30 Ordered UA W/ MICROSCOPIC Stat Lab 09/07/17 06:21 Completed VENOUS BLOOD GAS Urgent Lab 09/07/17 06:30 Completed Respiratory Nebulizer STAT RT 09/07/17 06:26 Completed Medication Summary Generic Name Dose Route Start Last Admin Trade Name Freq PRN Reason Stop Dose Admin Sodium Chloride 1,000 mls @ 50 mls/hr 09/07/17 06:30 09/07/17 06:26 Sodium Chloride 0.9% 1000 Ml IV 10/07/17 06:29 50 mls/hr .Q20H VENESSA Administration Discontinued Medications Generic Name Dose Route Start Last Admin Trade Name Freq PRN Reason Stop Dose Admin Albuterol/Ipratropium 3 ml 09/07/17 06:26 09/07/17 06:47 Duoneb 0.5-3 Mg/3 Ml Neb IH 09/07/17 06:27 3 ml STAT ONE Administration Albuterol/Ipratropium Confirm 09/07/17 06:38 Duoneb 0.5-3 Mg/3 Ml Neb Administered 09/07/17 06:39 Dose 3 ml IH .STK-MED ONE Dextrose 25 ml 09/07/17 06:21 09/07/17 06:26 D50w 50 Ml Abboject IV 09/07/17 06:22 25 ml STAT ONE Administration Dextrose Confirm 09/07/17 06:24 D50w 50 Ml Abboject Administered 09/07/17 06:25 Dose 50 ml IV .STK-MED ONE Ceftriaxone Sodium/Dextrose 1 g in 50 mls @ 100 mls/hr 09/07/17 08:01 08:05 Rocephin 1 Gm-D5w 50 Ml Bag IV 09/07/17 08:30 100 mls/hr STAT STA Administration Ceftriaxone Sodium/Dextrose Confirm 09/07/17 08:01 Rocephin 1 Gm-D5w 50 Ml Bag Administered 09/07/17 08:02 Dose 1 g in 50 mls @ ud IV .STK-MED ONE Lab/Rad Data: Laboratory Result Diagrams 09/07/17 06:40 09/07/17 06:40 Laboratory Results 09/07/17 09/07/17 09/07/17 Range/Units 06:40 06:40 06:40 WBC 11.8 H (4.0-10.5) K/mm3 RBC 4.41 (4.1-5.6) M/mm3 Hgb 11.6 L (12.5-18.0) gm/dl Hct 37.7 L (42-50) % MCV 85.5 (78-100) fl MCH 26.3 (26-32) pg MCHC 30.8 L (32-36) g/dl RDW 19.7 H (11.5-14.0) % Plt Count 203 (150-450) K/mm3 MPV 11.0 H (6-9.5) fl Segmented Neutrophils 61 (36.-66.) % Band Neutrophils 5 H (0.0-2.0) % Lymphocytes (Manual) 28 (24-44) % Monocytes (Manual) 4 (0.0-12.0) % Eosinophils (Manual) 2 (0.00-3.0) % Differential Comment NORMAL Platelet Estimate NORMAL (NORMAL) INR 1.04 (0.8-3.0) APTT 28.2 (24.1-36.1) SECONDS VBG pH (7.32-7.42) VBG pCO2 at Pat Temp (42-55) mm/Hg VBG pO2 at Pat Temp (25-40) mm/Hg VBG HCO3 (22-28) meq/L VBG O2 Sat (Julian) (95-100) VBG Base Excess (-2.0-2.0) VBG Hemoglobin VBG Carboxyhemoglobin (0.0-6.9) % T HGB POC Potassium (3.5-5.1) Sodium 141 (136-145) mEq/L Potassium 5.2 H (3.5-5.1) mEq/L Chloride 100 (98-107) mEq/L Carbon Dioxide 32.5 H (21-32) mEq/L Anion Gap 13.8 (5-15) MEQ/L BUN 40 H (9-20) mg/dL Creatinine 1.50 H (0.55-1.30) mg/dl Estimated GFR 48 ML/MIN Glucose 66 L (70-110) MG/DL Lactic Acid (0.4-2.0) Calcium 8.8 (8.5-10.1) mg/dL Total Bilirubin 0.30 (0.2-1.0) mg/dL AST 16 (15-37) U/L ALT 18 (12-78) U/L Alkaline Phosphatase 39 L (46-116) U/L Troponin I (0.000-0.056) ng/ml NT-Pro-B Natriuret Pep 596 H (0-450) pg/ml Serum Total Protein 6.1 L (6.4-8.2) gm/dL Albumin 2.8 L (3.4-5.0) g/dL Ur Collection Type Urine Color (YELLOW) Urine Appearance (CLEAR) Urine pH (5-6) Ur Specific Austin (1.005-1.025) Urine Protein (Negative) Urine Ketones (NEGATIVE) Urine Blood (0-5) Elio/ul Urine Nitrite (NEGATIVE) Urine Bilirubin (NEGATIVE) Urine Urobilinogen (0-1) mg/dL Ur Leukocyte Esterase (NEGATIVE) Urine Microscopic RBC (0-2) /HPF Urine Microscopic WBC (0-5) /HPF Ur Epithelial Cells (FEW) /HPF Urine Bacteria (NEGATIVE) /HPF Hyaline Casts (0-2) /LPF Urine Culture Reflexed (NO) Urine Glucose (NEGATIVE) mg/dL Specimen Received 09/07/17 09/07/17 09/07/17 Range/Units 06:30 06:30 06:21 WBC (4.0-10.5) K/mm3 RBC (4.1-5.6) M/mm3 Hgb (12.5-18.0) gm/dl Hct (42-50) % MCV (78-100) fl MCH (26-32) pg MCHC (32-36) g/dl RDW (11.5-14.0) % Plt Count (150-450) K/mm3 MPV (6-9.5) fl Segmented Neutrophils (36.-66.) % Band Neutrophils (0.0-2.0) % Lymphocytes (Manual) (24-44) % Monocytes (Manual) (0.0-12.0) % Eosinophils (Manual) (0.00-3.0) % Differential Comment Platelet Estimate (NORMAL) INR (0.8-3.0) APTT (24.1-36.1) SECONDS VBG pH 7.39 (7.32-7.42) VBG pCO2 at Pat Temp 53 (42-55) mm/Hg VBG pO2 at Pat Temp 18 L (25-40) mm/Hg VBG HCO3 32.1 H* (22-28) meq/L VBG O2 Sat (Julian) 30.6 L (95-100) VBG Base Excess 5.8 H (-2.0-2.0) VBG Hemoglobin 12.5 VBG Carboxyhemoglobin 1.9 (0.0-6.9) % T HGB POC Potassium 5.0 (3.5-5.1) Sodium (136-145) mEq/L Potassium (3.5-5.1) mEq/L Chloride (98-107) mEq/L Carbon Dioxide (21-32) mEq/L Anion Gap (5-15) MEQ/L BUN (9-20) mg/dL Creatinine (0.55-1.30) mg/dl Estimated GFR ML/MIN Glucose (70-110) MG/DL Lactic Acid 3.7 H (0.4-2.0) Calcium (8.5-10.1) mg/dL Total Bilirubin (0.2-1.0) mg/dL AST (15-37) U/L ALT (12-78) U/L Alkaline Phosphatase (46-116) U/L Troponin I < 0.017 (0.000-0.056) ng/ml NT-Pro-B Natriuret Pep (0-450) pg/ml Serum Total Protein (6.4-8.2) gm/dL Albumin (3.4-5.0) g/dL Ur Collection Type VOID Urine Color YELLOW (YELLOW) Urine Appearance CLOUDY (CLEAR) Urine pH 5.0 (5-6) Ur Specific Austin 1.015 (1.005-1.025) Urine Protein TRACE (Negative) Urine Ketones NEGATIVE (NEGATIVE) Urine Blood 250 (0-5) Elio/ul Urine Nitrite NEGATIVE (NEGATIVE) Urine Bilirubin NEGATIVE (NEGATIVE) Urine Urobilinogen NORMAL (0-1) mg/dL Ur Leukocyte Esterase 2+ (NEGATIVE) Urine Microscopic RBC >100 (0-2) /HPF Urine Microscopic WBC 25-50 (0-5) /HPF Ur Epithelial Cells RARE (FEW) /HPF Urine Bacteria MODERATE (NEGATIVE) /HPF Hyaline Casts 5-10 (0-2) /LPF Urine Culture Reflexed YES (NO) Urine Glucose TRACE (NEGATIVE) mg/dL Specimen Received 09/07/17714 <LISA ALBERTO - Last Filed: 09/07/17 06:52> - Progress Progress: unchanged Discussed with : Mary Ann (DR. Reese notified about patient and it was agreed the patient should further evaluation, including swallow study.) Will see patient in: hospital (observation) Counseled pt/family regarding: lab results, diagnosis, rad results <JANNETTE JACKMAN - Last Filed: 09/07/17 09:16> - Progress Progress Note: 09/07/17 06:45 Afebrile. Sugar was 60 so D50 half amp given. Will get head CT and check labs. Family not here at this time so hx is limited. Attempting to contact family and hospice. 09/07/17 07:[address] Jackman for further care and disposition. (LISA ALBERTO) - Departure Critical Care Time: No <LISA ALBERTO - Last Filed: 09/07/17 06:52> - Departure Time of Disposition: 09:16 Departure Disposition: Observation Critical Care Time: No <JANNETTE JACKMAN - Last Filed: 09/07/17 09:16> - Departure Clinical Impression: Type 2 diabetes mellitus, Altered mental status, Hypoglycemia, UTI (urinary tract infection) Condition: Fair Referrals: CYNTHIA DUMONT [Primary Care Provider] -
[2017-09-07 06:54] LABS: Mean Cell Volume 85.5 fl (78-100); Mean Corpuscular Hemoglobin 26.3 pg (26-32); Platelet Count 203 K/mm3 (150-450); Red Blood Count 4.41 M/mm3 (4.1-5.6); Red Cell Distribution Width 19.7 % (11.5-14.0); White Blood Count 11.8 K/mm3 (4.0-10.5)
[2017-09-07 07:19] LABS: ALBUMIN 2.8 g/dL (3.4-5.0); ANION GAP 13.8 MEQ/L (5-15); BILIRUBIN,TOTAL 0.3 mg/dL (0.2-1.0); Carbon Dioxide 32.5 mEq/L (21-32); Potassium 5.2 mEq/L (3.5-5.1); Total Protein 6.1 gm/dL (6.4-8.2)
[2017-09-07 07:29] LABS: Bilirubin NEGATIVE (NEGATIVE); Blood 250 Ery/ul (0-5); COMPLETE URINE MICROSCOPIC? YES; Collection Type VOID; Glucose TRACE mg/dL (NEGATIVE); Leukocyte Esterase 2+ (NEGATIVE)
[2017-09-07 07:30] LABS: ADD URINE CULTURE? YES (NO); Bacteria MODERATE /HPF (NEGATIVE); Epithelial Cells RARE /HPF (FEW); WBC 25-50 /HPF (0-5)
[2017-09-07 07:34] LABS: INR 1.04 (0.8-3.0); PROTIME 11.6 SECONDS (8.83-12.87)
[2017-09-07 07:37] LABS: PTT 28.2 SECONDS (24.1-36.1)
[2017-09-07] MEDS ORDERED: ROCEPHIN 1 Gm-D5w 50 ml Bag** 1 G/50 ML IVPB IV ONE (08:01)
[2017-09-07] MEDS ORDERED: ROCEPHIN 1 Gm-D5w 50 ml Bag** 1 G/50 ML IVPB IV STA (08:01)
[2017-09-07 08:12] LABS: BAND 5 % (0.0-2.0); Eosinophil 2 % (0.00-3.0); Total Cells Counted 100
[2017-09-07 08:13] LABS: Platelet Estimate NORMAL (NORMAL)
--- NOTE | 2017-09-07 09:26 | XRAY ---
Indication: Altered mental status. Comparison: January 19, 2017. Portable chest is moderately rotated translating heart/mediastinal structures to the right. Visualized lungs clear. The heart is borderline enlarged. Bony thorax intact again with osteopenia, degenerative changes, and left shoulder arthroplasty. Impression: Limited exam due to rotation. Borderline cardiomegaly. Negative for acute pneumonic process or naida CHF.
--- NOTE | 2017-09-07 09:30 | XRAY ---
Indication: Altered mental status. Multiple contiguous axial images obtained through the head without contrast. Comparison: January 19, 2017. There remains stable global atrophy, mild periventricular degenerative micro-ischemia, old left frontal infarct, and old right basal ganglia lacunar infarct. No acute intracranial hemorrhage, hydrocephalus, or mass effect. Bony calvarium intact. Moderate mucosal thickening of both ethmoid sinuses and lesser degree both sphenoid sinuses. There remains near complete opacification of the right mastoid air cells. Impression: 1. Again nonacute senile brain with old left frontal infarct and right basal ganglia lacunar infarct. 2. Again paranasal sinus disease less than before. 3. Stable right mastoid air cell opacification presumed inflammatory. Comment: Preliminary interpretation was made by [facility]. No discrepancy. CT DI 67.80
[2017-09-07 10:13] LABS: Lactic Acid 2.7 (0.4-2.0)
[2017-09-07] MEDS: DUONEB 0.5-3 MG/3 ml Neb IH SCH ×3 (10:35→18:58)
[2017-09-07] MEDS: NovoLOG Insulin SQ SCH (17:28)
[2017-09-07] MEDS: ENOXAPARIN SODIUM SQ SCH (17:30)
[2017-09-07] MEDS ORDERED: PHARMACY DOSING REQUIRED: VANCOMYCIN IV ONE (18:03)
[2017-09-07] MEDS ORDERED: VANCOCIN 1 GM VIAL*** 1 GM in Sodium Chloride 0.9% 250 ML 250 ML IV SCH (19:30)
[2017-09-07] MEDS ORDERED: Vancomycin 1GM/ Ns 250ML*** 250 ML IV ONE (20:13)
[2017-09-07] MEDS: PROTONIX 40 MG IV IV SCH (21:27)
[2017-09-07] MEDS ORDERED: Protonix 40MG Tablet PO SCH (22:00)
[2017-09-07] MEDS ORDERED: Lantus Insulin SQ SCH (22:00)
[2017-09-08] MEDS: DUONEB 0.5-3 MG/3 ml Neb IH SCH ×7 (00:12→22:44)
[2017-09-08] MEDS ORDERED: NON-FORMULARY ITEM (Insulin Lispro 10 UNIT) SQ SCH (07:30)
[2017-09-08] MEDS: NovoLOG Insulin SQ SCH ×2 (07:33→12:37)
--- NOTE | 2017-09-08 08:07 | HP ---
CHIEF COMPLAINT: Lethargy, agitation and slurred speech. HISTORY OF PRESENT ILLNESS: The patient is a 77 year-old white male patient who has been a Hospice patient for the past year. He has no local family doctor otherwise and apparently has not been seeing a specialist either. He apparently had a visit two weeks ago at [facility] for pneumonia. By the time he left the hospital at that time he was just not seeing much in the way of improvement but was discharged home. The patient is known to be a bilateral amputee from what is likely atherosclerotic disease and diabetes. HOME MEDICATIONS: Currently includes aspirin 81 mg a day, Glucophage 1,000 mg b.i.d., Plavix 75 mg a day, DuoNeb, Tylenol, Imodium, Lopressor 12.5 mg daily, Zoloft 50 mg a day, Simvastatin 40 mg a day, Flomax 0.4 mg a day, Zanaflex 4 mg t.i.d., lisinopril 5 mg daily. ALLERGIES: NKDA. PHYSICAL EXAMINATION: Revealed an obese white male patient who has garbled speech and at times he is agitated. He is in the room with his presently who is basically providing his history. HEENT: He is currently wearing oxygen nasal cannula at 10 liters. Oropharynx is somewhat dry. NECK: Supple without lymphadenopathy particularly noted. CHEST: Essentially clear to auscultation. HEART: Regular rate and rhythm. ABDOMEN: Protuberant. No palpable masses were felt. : He has an indwelling Mendez catheter which is draining to gravity. BACK/EXTREMITIES: Again he has bilateral above knee amputation. The patient also has some weakness of his right arm. He is unable to move it other than by moving it with his left. The patient was also noted on physical examination to have reddened area on his back side which is concerning for possibility of cellulitis developing. NEUROLOGIC: We are unable to tell his orientation as his speech is so garbled. He was able to pronounce clearly that he has trouble with his bowels, passing gas and that was really the only thing that was clear on his speaking. LAB DATA AND TESTS: Initial glucose 60. His troponins were less than 0.017. UA showed specific gravity of 1.015. There were 25 to 50 white blood cells/high power field and over 100 red blood cells. Nitrite negative. We will obtain a urine culture. His metabolic panel showed a glucose of 66, BUN 40, creatinine 1.50, potassium slightly high at 5.2, sodium 141, carbon dioxide slightly high at 32.5, protein slightly low at 6.1. ProBNP slightly elevated at 596. International normalized ratio 1.04. His white blood cell count was 11,800 with 5 bands and 61 polys. His hemoglobin was 11.6. PLT count 203,000. Venous blood gas showed a pH of 7.39, pCO2 of 53. Lactic acid was slightly high at 2.7. ASSESSMENT: A patient with: 1) Probable infectious disease process, possible cellulitis causing his worsening in condition. He has already been placed on Rocephin empirically and we will add Vancomycin and recheck his labs in the morning and we will culture his blood and urine. Chest x-ray showed no acute disease process. 2) Diabetes mellitus type 2. We will be following him with sliding scale coverage. Currently due to his garbled speech and what appears to be some difficulty swallowing we will obtain a barium swallow to see his risk for aspiration. The patient has been made a No Code by his family as he is currently and has been a Hospice patient for the last year. We will hold his usual home oral medications except for his nebulizers and insulin.
[2017-09-08] MEDS: PROTONIX 40 MG IV IV SCH ×2 (09:07→21:29)
[2017-09-08] MEDS: ROCEPHIN 1 Gm-D5w 50 ml Bag** 1 G/50 ML IVPB IV SCH (09:07)
[2017-09-08 09:12] LABS: Mean Cell Volume 84.4 fl (78-100); Mean Platelet Volume 10.8 fl (6-9.5); Platelet Count 210 K/mm3 (150-450); Red Blood Count 4.69 M/mm3 (4.1-5.6); Red Cell Distribution Width 19.5 % (11.5-14.0); White Blood Count 7.1 K/mm3 (4.0-10.5)
[2017-09-08 09:40] LABS: ANION GAP 17.7 MEQ/L (5-15); BLOOD UREA NITROGEN 16 mg/dL (9-20); CHLORIDE 101 mEq/L (98-107); Glucose 211 MG/DL (70-110); Potassium 4.4 mEq/L (3.5-5.1); SODIUM 139 mEq/L (136-145)
[2017-09-08] MEDS ORDERED: INSULIN DETEMIR 15 UNIT SQ SCH (10:00)
--- NOTE | 2017-09-08 10:09 | XRAY ---
Indication: Dysphagia. History aspiration pneumonia. Modified barium swallow study was performed by the department of speech therapy with fluoroscopic assistance provided. Patient ingested multiple consistencies of liquids and solids. Full report and recommendations will be reported separately. Approximately 1 minute 36 seconds fluoroscopy used.
--- NOTE | 2017-09-08 14:40 | PCM.NOTE ---
Date and Time: 09/08/17 1434 Subjective Assessment: Pt continues to have garbled speech although he does seem alert and does seem to understand what is going on. Swallow study today places him at high risk for aspiration; awaiting final recommendations. He is denying pain to me. wants to eat and wants to get up out of here. - Review of Systems All Other Systems: Unable due to condition Objective Exam General Appearance: no apparent distress, obese Neurologic Exam: cooperative Skin Exam: normal color, warm, dry Respiratory Exam: normal breath sounds, lungs clear, wheezing (faint exp wheezing scattered), No crackles/rales, No rhonchi Cardiovascular Exam: regular rate/rhythm, normal heart sounds, No murmur Extremity Exam: other (bilat BKAs) Back Exam: normal inspection, other (R buttock with very mild erythema) OBJECTIVE DATA Vital Signs: Vital Signs - 24 hr Temp Pulse Resp BP Pulse Ox 09/08/17 11:04 97.7 F 98 H 22 140/78 92 L 09/08/17 11:00 77 20 93 L 09/08/17 07:23 97.8 F 92 H 22 138/80 91 L 09/08/17 07:00 100 H 18 93 L 09/08/17 04:00 97.6 F 93 H 20 135/76 93 L 09/08/17 03:37 93 H 20 93 L 09/08/17 00:12 103 H 26 H 95 09/07/17 23:25 97.1 F 93 H 26 H 127/71 91 L 09/07/17 19:40 97.5 F 98 H 24 182/100 90 L 09/07/17 18:58 98 H 32 H 90 L 09/07/17 15:54 98.2 F 101 H 36 H 127/61 90 L 09/07/17 15:24 98.2 F 101 H 36 H 127/61 90 L 09/07/17 14:53 87 28 H 92 L Oxygen-Last 24 hours O2 Percentage 6 Liters = 44% O2 Percentage 6 Liters = 44% O2 Percentage 6 Liters = 44% O2 Percentage 5 Liters = 40% O2 Percentage 5 Liters = 40% Oxygen Flowrate (L/min)-RT 7 Pain Assessment - Last Documented Pain Scale Used 0-10 Pain Scale Intake and Output: Intake & Output 11/29/09/07/17 09/08/17 09/09/17 11:59 11:59 11:59 11:59 Intake Total 250 0 Output Total 300 1500 Balance -300 -1250 0 Weight 62.823 kg Lab Results: Accuchecks Date 09/08/17 Date 09/08/17 Date 09/08/17 Date 09/07/17 Date 09/07/17 Date 09/07/17 Time 12:00 Time 07:30 Time 04:21 Time 23:56 Time 20:11 Time 16:00 Accucheck Value: 247 Accucheck Value: 176 Accucheck Value: 174 Accucheck Value: 171 Accucheck Value: 129 Accucheck Value: 141 Lab Results-Last 24 Hours 09/07/17 09/07/17 09/07/17 Range/Units 12:12 15:40 18:32 WBC (4.0-10.5) K/mm3 RBC (4.1-5.6) M/mm3 Hgb (12.5-18.0) gm/dl Hct (42-50) % MCV (78-100) fl MCH (26-32) pg MCHC (32-36) g/dl RDW (11.5-14.0) % Plt Count (150-450) K/mm3 MPV (6-9.5) fl Sodium (136-145) mEq/L Potassium (3.5-5.1) mEq/L Chloride (98-107) mEq/L Carbon Dioxide (21-32) mEq/L Anion Gap (5-15) MEQ/L BUN (9-20) mg/dL Creatinine (0.55-1.30) mg/dl Estimated GFR ML/MIN Glucose (70-110) MG/DL Lactic Acid 2.0 (0.4-2.0) Calcium (8.5-10.1) mg/dL Troponin I < 0.017 < 0.017 (0.000-0.056) ng/ml 09/07/17 09/08/17 09/08/17 Range/Units 18:35 09:00 09:00 WBC 7.1 (4.0-10.5) K/mm3 RBC 4.69 (4.1-5.6) M/mm3 Hgb 12.2 L (12.5-18.0) gm/dl Hct 39.6 L (42-50) % MCV 84.4 (78-100) fl MCH 26.0 (26-32) pg MCHC 30.8 L (32-36) g/dl RDW 19.5 H (11.5-14.0) % Plt Count 210 (150-450) K/mm3 MPV 10.8 H (6-9.5) fl Sodium 139 (136-145) mEq/L Potassium 4.4 (3.5-5.1) mEq/L Chloride 101 (98-107) mEq/L Carbon Dioxide 25.0 (21-32) mEq/L Anion Gap 17.7 H (5-15) MEQ/L BUN 16 (9-20) mg/dL Creatinine 0.87 (0.55-1.30) mg/dl Estimated GFR > 60 ML/MIN Glucose 211 H (70-110) MG/DL Lactic Acid 1.3 (0.4-2.0) Calcium 8.9 (8.5-10.1) mg/dL Troponin I (0.000-0.056) ng/ml Radiology Exams: Radiology Procedures Category Date Time Status MODIFIED BARIUM SWALLOW EXAM Urgent Exams 09/08/17 Completed Multi-Disciplinary Progress Notes: Multi-Disciplinary Progress Notes 09/08/17 00:18 Respiratory Note by David Shelton PLACED PT ON HIS HM UNIT CPAP. I ADDED WATER TO HUMIDIFIER CHAMBER. PT STATED THAT HE WEARS O2 INLINE W/ CPAP. I ADDED THE 5LPM HE WAS CURRENTLY ON AND IT DID NOT MAINTAIN A SAT OVER 90% SO I TITRATED PT UP TO 7LPM O2 INLINE. PT SATS WERE 95% BEFORE I LEFT PT RM. I HAD DIFFICULTY UNDERSTANDING WHAT PT WAS ASKING FOR AND WITH THE ASSISTANCE OF NURSING WE UNDERSTOOD PT WANTED TO BE MOVED UP IN BED. WE READJUSTED PT IN BED AND CONFIRMED THAT PT WAS COMFORTABLE. Initialized on 09/08/17 00:18 - END OF NOTE 09/07/17 14:39 Case Management Note by Amber Dias CALL TO [facility], SPOKE WITH SINCERE. SINCERE REPORTS THAT THEY WILL LIKELY RECOMMEND THAT PT MOVE TO [facility] ON DISCHARGE HE WANTS TO BE A FULL CODE AND SEEK AGGRESSIVE TREATMENT. REPORTS THAT THIS IS HIS SECOND ADMISSION TO A HOSPITAL IN THE LAST COUPLE MONTHS. REPORTS THAT SHE WILL DISCUSS WITH PT/ ON DISCHARGE. Initialized on 09/07/17 14:39 - END OF NOTE Assessment/Plan (1) Cellulitis Current Visit: Yes Status: Acute Qualifiers: Site of cellulitis: buttock Qualified Code(s): L03.317 - Cellulitis of buttock Assessment & Plan: possible; he is on vancomycin and rocephin. I am seeing this after almost 24 hours of treatment, so it certainly could be improved over the initial visit. Will continue antibiotics. Code(s): L03.90 - CELLULITIS, UNSPECIFIED (2) Expressive aphasia Current Visit: Yes Status: Acute Assessment & Plan: I think at this point the patient has less AMS and more trouble expressing himself. I will need to speak wiht his . I think likely he's had a CVA, but I'm unsure if he can even have an MRI. Continue NPO until swallow study results are in. Code(s): R47.01 - APHASIA (3) COPD exacerbation Current Visit: No Status: Acute Assessment & Plan: on IV rocephin. Slight wheeze. On NC currently; was on BiPap this morning. Code(s): J44.1 - CHRONIC OBSTRUCTIVE PULMONARY DISEASE W (ACUTE) EXACERBATION (4) History of coronary artery disease Current Visit: No Status: Chronic Code(s): Z86.79 - PERSONAL HISTORY OF OTHER DISEASES OF THE CIRCULATORY SYSTEM (5) Hypertension Current Visit: No Status: Chronic Qualifiers: Hypertension type: essential hypertension Qualified Code(s): I10 - Essential (primary) hypertension Code(s): I10 - ESSENTIAL (PRIMARY) HYPERTENSION (6) Hypoxemia Current Visit: No Status: Acute Code(s): R09.02 - HYPOXEMIA
[2017-09-08] MEDS ORDERED: TRANDATE 100 MG/20 ML MDV FOR DRIP IV PRN (15:30)
[2017-09-08] MEDS: Dextrose 5% -0.45 NaCl 1000 ML 1,000 ML IV SCH (16:11)
[2017-09-08] MEDS: ENOXAPARIN SODIUM SQ SCH (18:09)
[2017-09-08] MEDS: Lantus Insulin SQ SCH (21:29)
[2017-09-08] MEDS ORDERED: VANCOCIN 1 GM VIAL*** 1 GM in Sodium Chloride 0.9% 250 ML 250 ML IV SCH (22:00)
[2017-09-09] MEDS: DUONEB 0.5-3 MG/3 ml Neb IH SCH ×6 (03:13→22:36)
[2017-09-09] MEDS: Dextrose 5% -0.45 NaCl 1000 ML 1,000 ML IV SCH ×2 (06:34→21:40)
[2017-09-09 10:13] LABS: Mean Cell Volume 85.1 fl (78-100); Mean Platelet Volume 9.6 fl (6-9.5); Platelet Count 187 K/mm3 (150-450); Red Blood Count 4.57 M/mm3 (4.1-5.6); Red Cell Distribution Width 19.2 % (11.5-14.0); White Blood Count 6.8 K/mm3 (4.0-10.5)
[2017-09-09 10:28] LABS: Mean Corpuscular Hemoglobin 26.2 pg (26-32)
[2017-09-09 10:38] LABS: ANION GAP 12.2 MEQ/L (5-15); BLOOD UREA NITROGEN 7 mg/dL (9-20); CHLORIDE 106 mEq/L (98-107); Carbon Dioxide 27.5 mEq/L (21-32); Glucose 219 MG/DL (70-110); Potassium 3.6 mEq/L (3.5-5.1); SODIUM 142 mEq/L (136-145)
[2017-09-09 11:13] LABS: ANISOCYTOSIS 1+; Eosinophil 3 % (0.00-3.0); Total Cells Counted 100
[2017-09-09 11:14] LABS: Platelet Estimate NORMAL (NORMAL); Poikilocytosis 1+; Polychromasia RARE
--- NOTE | 2017-09-09 11:56 | PCM.NOTE ---
Date and Time: 09/09/17 1150 Subjective Assessment: Swallow study result reported as requiring pureed diet, honey thickened liquids , and direct supervision with all meals. He is asking to eat and drink. He is denying any pain. - Review of Systems Constitutional: No Fever Abdominal/Gastrointestinal: No Abdominal Pain Objective Exam General Appearance: no apparent distress, alert Neurologic Exam: cooperative, facial droop (on R as before), other (speech indistinct/extremely poor enunciation, but he does answer questions appropriately.) Skin Exam: normal color, warm, dry Respiratory Exam: normal breath sounds, lungs clear, No crackles/rales, No rhonchi, No wheezing Cardiovascular Exam: regular rate/rhythm, normal heart sounds, No murmur Gastrointestinal/Abdomen Exam: soft, normal bowel sounds, No tenderness Extremity Exam: other (s/p bilat BKAs remotely) OBJECTIVE DATA Vital Signs: Vital Signs - 24 hr Temp Pulse Resp BP Pulse Ox 09/09/17 11:13 98.8 F 101 H 20 177/84 90 L 09/09/17 07:00 100 H 18 90 L 09/09/17 06:53 98.2 F 103 H 18 164/87 90 L 09/09/17 03:48 97.6 F 104 H 24 157/70 94 L 09/09/17 03:00 98 H 22 92 L 09/08/17 23:51 98.0 F 107 H 17 149/87 94 L 09/08/17 22:47 106 H 24 92 L 09/08/17 19:51 98.3 F 84 20 162/83 93 L 09/08/17 19:00 110 H 26 H 92 L 09/08/17 16:20 98.1 F 100 H 22 134/80 90 L 09/08/17 14:42 113 H 20 91 L Oxygen-Last 24 hours O2 Percentage 6 Liters = 44% O2 Percentage 6 Liters = 44% O2 Percentage 5 Liters = 40% O2 Percentage 6 Liters = 44% O2 Percentage 6 Liters = 44% Pain Assessment - Last Documented Pain Intensity 0 Pain Scale Used 0-10 Pain Scale Intake and Output: Intake & Output 09/06/17 09/07/17 09/08/17 09/09/17 11:59 11:59 11:59 11:59 Intake Total 250 771 Output Total 300 1500 1350 Balance -300 -1250 -579 Weight 62.823 kg Lab Results: Accuchecks Date 09/09/17 Date 09/08/17 Date 09/08/17 Date 09/08/17 Date 09/08/17 Time 03:52 Time 23:51 Time 19:26 Time 16:30 Time 12:00 Accucheck Value: 185 Accucheck Value: 198 Accucheck Value: 173 Accucheck Value: 163 Accucheck Value: 247 Lab Results-Last 24 Hours 09/09/17 09/09/17 Range/Units 10:05 10:05 WBC 6.8 (4.0-10.5) K/mm3 RBC 4.57 (4.1-5.6) M/mm3 Hgb 12.0 L (12.5-18.0) gm/dl Hct 38.9 L (42-50) % MCV 85.1 (78-100) fl MCH 26.2 (26-32) pg MCHC 30.8 L (32-36) g/dl RDW 19.2 H (11.5-14.0) % Plt Count 187 (150-450) K/mm3 MPV 9.6 H (6-9.5) fl Segmented Neutrophils 75 H (36.-66.) % Lymphocytes (Manual) 15 L (24-44) % Monocytes (Manual) 7 (0.0-12.0) % Eosinophils (Manual) 3 (0.00-3.0) % Differential Comment ABNORMAL Platelet Estimate NORMAL (NORMAL) Polychromasia RARE Poikilocytosis 1+ Anisocytosis 1+ Sodium 142 (136-145) mEq/L Potassium 3.6 (3.5-5.1) mEq/L Chloride 106 (98-107) mEq/L Carbon Dioxide 27.5 (21-32) mEq/L Anion Gap 12.2 (5-15) MEQ/L BUN 7 L (9-20) mg/dL Creatinine 0.73 (0.55-1.30) mg/dl Estimated GFR > 60 ML/MIN Glucose 219 H (70-110) MG/DL Calcium 8.6 (8.5-10.1) mg/dL Radiology Exams: Radiology Procedures Category Date Time Status MODIFIED BARIUM SWALLOW EXAM Urgent Exams 09/08/17 Completed Assessment/Plan (1) UTI due to extended-spectrum beta lactamase (ESBL) producing Escherichia coli Current Visit: Yes Status: Acute Assessment & Plan: changed rocephin and vancomycing to merropenem per culture results. Per hospice nurse, pt had various complaints over the past week including intermittent expressive aphasia and facial drooping, with hypotension, so it seems likely he had this infection for some time but it did not become apparent until he entered the hospital. The hospice doctor thought he was having TIAs. Code(s): N39.0 - URINARY TRACT INFECTION, SITE NOT SPECIFIED; A49.8 - OTHER BACTERIAL INFECTIONS OF UNSPECIFIED SITE; Z16.12 - EXTENDED SPECTRUM BETA LACTAMASE (ESBL) RESISTANCE (2) CVA (cerebral vascular accident) Current Visit: Yes Status: Acute Qualifiers: CVA mechanism: embolism Precerebral and cerebral artery: middle cerebral artery Laterality of affected vessel: left Qualified Code(s): I63.412 - Cerebral infarction due to embolism of left middle cerebral artery Code(s): I63.9 - CEREBRAL INFARCTION, UNSPECIFIED (3) Expressive aphasia Current Visit: Yes Status: Acute Assessment & Plan: Most likely due to CVA. I discussed with his at length yesterday, including the fact that we can do an MRI on the patient but I'm not sure that would change the therapy (plavis and aspirin). She agreed ok to hold off on MRI unless it would makr Code(s): R47.01 - APHASIA (4) COPD exacerbation Current Visit: No Status: Acute Assessment & Plan: On IV merropenem. I spoke with his hospice nurse last night; he has been on hospice for COPD. However, they are interested in transferring to [facility] per note in chart as they have been to hospital and have been interested in pursuing aggressive treatment. Code(s): J44.1 - CHRONIC OBSTRUCTIVE PULMONARY DISEASE W (ACUTE) EXACERBATION (5) History of coronary artery disease Current Visit: No Status: Chronic Code(s): Z86.79 - PERSONAL HISTORY OF OTHER DISEASES OF THE CIRCULATORY SYSTEM (6) Hypertension Current Visit: No Status: Chronic Qualifiers: Hypertension type: essential hypertension Qualified Code(s): I10 - Essential (primary) hypertension Assessment & Plan: per hospice, he had some low BP over the past few weeks. Code(s): I10 - ESSENTIAL (PRIMARY) HYPERTENSION (7) Hypoxemia Current Visit: No Status: Chronic Code(s): R09.02 - HYPOXEMIA (8) Uncontrolled diabetes mellitus Current Visit: No Status: Acute Qualifiers: Diabetes mellitus complication status: with circulatory complication Diabetes mellitus complication detail: with other circulatory complications Diabetes mellitus wireless telegrapher insulin use: unspecified wireless telegrapher insulin use status Assessment & Plan: His BS from 69-180. Currently lantus is at 1/2 his home dose. Will increase tomorrow if his po intake on thickened liquids is approaching normal for him. Code(s): E11.65 - TYPE 2 DIABETES MELLITUS WITH HYPERGLYCEMIA
[2017-09-09] MEDS ORDERED: Zosyn 3.375GM/100 Ml D5W 3.375 GM/100 ML IVPB IV SCH (12:00)
[2017-09-09] MEDS: ROCEPHIN 1 Gm-D5w 50 ml Bag** 1 G/50 ML IVPB IV SCH (12:32)
[2017-09-09] MEDS: PROTONIX 40 MG IV IV SCH (12:32)
[2017-09-09] MEDS ORDERED: Mucinex 600MG ER Tabs PO PRN (12:50)
[2017-09-09] MEDS ORDERED: IMODIUM 2 MG PO PRN (13:00)
[2017-09-09] MEDS: PLAVIX 75 MG Tablet PO SCH (13:40)
[2017-09-09] MEDS: Zestril 20 MG PO SCH (13:40)
[2017-09-09] MEDS: Lopressor 25MG Tab PO SCH ×2 (13:40→21:37)
[2017-09-09] MEDS: Proscar 5 MG PO SCH (13:41)
[2017-09-09] MEDS: Flomax 0.4 MG PO SCH (13:41)
[2017-09-09] MEDS: Zanaflex 4 MG PO SCH ×2 (13:41→21:37)
[2017-09-09] MEDS: ECOTRIN 81 MG PO SCH (13:41)
[2017-09-09] MEDS: Merrem 1 GM 1 G in Sodium Chloride 100ML MINI-BAG PLUS 100 ML IV SCH ×2 (14:43→21:37)
[2017-09-09] MEDS: BUMEX 1 MG PO SCH (17:07)
[2017-09-09] MEDS: NovoLOG Insulin SQ PRN ×2 (20:10→23:19)
[2017-09-09] MEDS ORDERED: TROUGH DRUG LEVELS IJ ONE (21:30)
[2017-09-09] MEDS: Lantus Insulin SQ SCH (21:38)
[2017-09-09] MEDS ORDERED: NON-FORMULARY ITEM (Simvastatin 40 Mg [Zocor 40 Mg] 80 MG) PO SCH (22:00)
[2017-09-09] MEDS ORDERED: ZOCOR 20MG PO SCH (22:00)
[2017-09-09] MEDS ORDERED: BUMETANIDE 1 MG PO SCH (22:00)
[2017-09-09] MEDS ORDERED: Senokot-S Tablet PO PRN (22:00)
[2017-09-09] MEDS ORDERED: Lopressor 25MG Tab PO ONE (23:00)
[2017-09-10] MEDS: CARDIZEM DRIP 100 MG/100 ML D5W 100 ML IV PRN ×2 (01:47→14:45)
[2017-09-10] MEDS ORDERED: Sodium Chloride 0.9% 250 ML 250 ML IV SCH ×2 (02:15→16:45)
[2017-09-10] MEDS ORDERED: Sodium Chloride 0.9% 1000 ML 1,000 ML ONE (02:15)
[2017-09-10] MEDS ORDERED: Lanoxin 0.5 MG/2 ML INJECTION IV ONE (02:25)
[2017-09-10 02:29] LABS: Mean Cell Volume 85.9 fl (78-100); Mean Corpuscular Hemoglobin 26.4 pg (26-32); Mean Platelet Volume 10.2 fl (6-9.5); Platelet Count 204 K/mm3 (150-450); Red Blood Count 4.62 M/mm3 (4.1-5.6); Red Cell Distribution Width 19.5 % (11.5-14.0); White Blood Count 9.9 K/mm3 (4.0-10.5)
[2017-09-10 02:46] LABS: ANION GAP 17.8 MEQ/L (5-15); BLOOD UREA NITROGEN 12 mg/dL (9-20); CHLORIDE 105 mEq/L (98-107); Carbon Dioxide 24.3 mEq/L (21-32); Glucose 233 MG/DL (70-110); SODIUM 143 mEq/L (136-145)
[2017-09-10] MEDS: DUONEB 0.5-3 MG/3 ml Neb IH SCH ×6 (02:55→23:08)
[2017-09-10] MEDS: NovoLOG Insulin SQ PRN ×4 (04:34→17:33)
[2017-09-10] MEDS: Merrem 1 GM 1 G in Sodium Chloride 100ML MINI-BAG PLUS 100 ML IV SCH ×3 (05:32→22:31)
[2017-09-10] MEDS: Zanaflex 4 MG PO SCH ×3 (05:32→22:32)
[2017-09-10] MEDS: Dextrose 5% -0.45 NaCl 1000 ML 1,000 ML IV SCH (05:32)
[2017-09-10] MEDS: BUMEX 1 MG PO SCH ×2 (09:02→17:34)
[2017-09-10] MEDS: ECOTRIN 81 MG PO SCH (09:02)
[2017-09-10] MEDS: ZOLOFT 50 MG TABLET PO SCH (09:02)
[2017-09-10] MEDS: Zestril 20 MG PO SCH (09:02)
[2017-09-10] MEDS: PLAVIX 75 MG Tablet PO SCH (09:02)
[2017-09-10] MEDS: Flomax 0.4 MG PO SCH (09:02)
[2017-09-10] MEDS ORDERED: SERTRALINE HCL PO SCH (10:00)
[2017-09-10] MEDS ORDERED: NON-FORMULARY ITEM (Lisinopril [Zestril] 40 MG) PO SCH (10:00)
[2017-09-10] MEDS: Proscar 5 MG PO SCH (13:02)
[2017-09-10] MEDS: Lopressor 25MG Tab PO SCH ×2 (13:02→22:32)
--- NOTE | 2017-09-10 14:36 | PCM.NOTE ---
Date and Time: 09/10/17 1431 Subjective Assessment: Yesterday evening his HR increased into the 150s at times and EKG indicated SVT. He was started on a cardizem drip with minimal results so Dr. Alcon Quick was consulted, thank you. He ordered a one time dose of digitalis with good results. HR is currently in the 80s with 5mg/hr cardizem drip. He ate 100% of his breakfast; on pureed diet with honey thickened liquids. BS in the 200s. He has no complaint of pain. Denies pain to the buttocks. - Review of Systems Constitutional: No Fever Abdominal/Gastrointestinal: No Vomiting Objective Exam General Appearance: no apparent distress, alert Neurologic Exam: cooperative, other (answers "yes" and "no" questions appropriately. Still hard to understand.) Skin Exam: warm, dry, other (R buttock with mild erythema superiorly, no ulceration, no lesions, nttp) Respiratory Exam: diminished breath sounds, wheezing (exp, throughout), No crackles/rales, No rhonchi Cardiovascular Exam: regular rate/rhythm, normal heart sounds, No murmur Gastrointestinal/Abdomen Exam: soft, normal bowel sounds, No tenderness, No distention OBJECTIVE DATA Vital Signs: Vital Signs - 24 hr Temp Pulse Resp BP Pulse Ox 09/10/17 14:00 84 22 113/76 96 09/10/17 13:00 108 H 16 178/70 92 L 09/10/17 12:00 98.6 F 88 20 133/68 94 L 09/10/17 11:00 85 22 117/60 92 L 09/10/17 10:31 87 18 93 L 09/10/17 09:56 86 15 104/52 97 09/10/17 09:00 118 H 24 121/68 96 09/10/17 08:00 98.1 F 77 17 102/64 93 L 09/10/17 07:00 86 20 91 L 09/10/17 04:00 98.0 F 138 H 22 97/68 93 L 09/10/17 03:04 130 H 26 H 93 L 09/09/17 23:53 98.0 F 150 H 23 109/70 98 09/09/17 23:00 159 H 24 91 L 09/09/17 20:24 114 H 09/09/17 19:36 98.6 F 140 H 20 109/72 94 L 09/09/17 19:00 108 H 20 90 L 09/09/17 16:00 98.8 F 102 H 20 162/86 90 L 09/09/17 15:00 93 H 20 89 L Oxygen-Last 24 hours O2 Percentage 5 Liters = 40% O2 Percentage 5 Liters = 40% O2 Percentage 5 Liters = 40% O2 Percentage 5 Liters = 40% O2 Percentage 5 Liters = 40% O2 Percentage 5 Liters = 40% O2 Percentage 6 Liters = 44% O2 Percentage 6 Liters = 44% O2 Percentage 6 Liters = 44% Pain Assessment - Last Documented Pain Intensity 0 Pain Scale Used 0-10 Pain Scale Intake and Output: Intake & Output 09/08/17 09/09/17 09/10/17 09/11/17 11:59 11:59 11:59 11:59 Intake Total 876 Output Total 1150 Balance -274 Lab Results: Accuchecks Date 09/10/17 Date 09/10/17 Date 09/09/17 Date 09/09/17 Time 04:15 Time 16:00 Accucheck Value: 291 Accucheck Value: 237 Accucheck Value: 228 Accucheck Value: 264 Accucheck Value: 293 Accucheck Value: 84 Lab Results-Last 24 Hours 09/10/17 09/10/17 09/10/17 Range/Units 02:24 02:24 02:24 WBC 9.9 (4.0-10.5) K/mm3 RBC 4.62 (4.1-5.6) M/mm3 Hgb 12.2 L (12.5-18.0) gm/dl Hct 39.7 L (42-50) % MCV 85.9 (78-100) fl MCH 26.4 (26-32) pg MCHC 30.7 L (32-36) g/dl RDW 19.5 H (11.5-14.0) % Plt Count 204 (150-450) K/mm3 MPV 10.2 H (6-9.5) fl Sodium 143 (136-145) mEq/L Potassium 4.0 (3.5-5.1) mEq/L Chloride 105 (98-107) mEq/L Carbon Dioxide 24.3 (21-32) mEq/L Anion Gap 17.8 H (5-15) MEQ/L BUN 12 (9-20) mg/dL Creatinine 1.05 (0.55-1.30) mg/dl Estimated GFR > 60 ML/MIN Glucose 233 H (70-110) MG/DL Calcium 8.6 (8.5-10.1) mg/dL Troponin I < 0.017 (0.000-0.056) ng/ml Multi-Disciplinary Progress Notes: Multi-Disciplinary Progress Notes 09/09/17 22:56 Respiratory Note by Jyoti Sim THIS RT WAS IN TO DO RESPIRATORY TREATMENT, PTS HEART RATE WAS 158 ON THE PULSE OX. PT DENIES HEART BEATING FAST. PALPATED FOR PULSE IT WAS HARD TO FEEL. GOT AN EKG AND REPORTED THIS TO Miguel THORNE PT RATE CAME DOWN FOR A FEW MINS BUT WENT BACK UP TO 158. FADUMO WAS STILL IN THE ROOM. Initialized on 09/09/17 22:56 - END OF NOTE Assessment/Plan (1) UTI due to extended-spectrum beta lactamase (ESBL) producing Escherichia coli Current Visit: Yes Status: Acute Assessment & Plan: He is on IV meropenem day #2. In isolation. Code(s): N39.0 - URINARY TRACT INFECTION, SITE NOT SPECIFIED; A49.8 - OTHER BACTERIAL INFECTIONS OF UNSPECIFIED SITE; Z16.12 - EXTENDED SPECTRUM BETA LACTAMASE (ESBL) RESISTANCE (2) CVA (cerebral vascular accident) Current Visit: Yes Status: Acute Qualifiers: CVA mechanism: embolism Precerebral and cerebral artery: middle cerebral artery Laterality of affected vessel: left Qualified Code(s): I63.412 - Cerebral infarction due to embolism of left middle cerebral artery Assessment & Plan: He is doing fairly well on his thickened diet. He is on 80mg simvastatin po daily; however, there is an interaction with the cardizem. will change the simvastatin 80mg to lipitor 40mg daily. Upon discharge if he's still on cardizem would change the simvastatin to pravastatin 80mg/d. Code(s): I63.9 - CEREBRAL INFARCTION, UNSPECIFIED (3) Expressive aphasia Current Visit: Yes Status: Acute Code(s): R47.01 - APHASIA (4) COPD exacerbation Current Visit: No Status: Acute Assessment & Plan: Add steroid today as he is wheezing. Code(s): J44.1 - CHRONIC OBSTRUCTIVE PULMONARY DISEASE W (ACUTE) EXACERBATION (5) History of coronary artery disease Current Visit: No Status: Chronic Code(s): Z86.79 - PERSONAL HISTORY OF OTHER DISEASES OF THE CIRCULATORY SYSTEM (6) Hypertension Current Visit: No Status: Chronic Qualifiers: Hypertension type: essential hypertension Qualified Code(s): I10 - Essential (primary) hypertension Assessment & Plan: BP from 116-149 systolic/ 50s-60s diastolic. Code(s): I10 - ESSENTIAL (PRIMARY) HYPERTENSION (7) Hypoxemia Current Visit: No Status: Chronic Code(s): R09.02 - HYPOXEMIA (8) Uncontrolled diabetes mellitus Current Visit: No Status: Chronic Qualifiers: Diabetes mellitus complication status: with circulatory complication Diabetes mellitus complication detail: with other circulatory complications Diabetes mellitus termite control servicer insulin use: unspecified assisted insulin use status Assessment & Plan: Increasing his lantus back to his baseline level of 15 units daily. Continue sliding scale as needed. He is tolerating po quite well. Code(s): E11.65 - TYPE 2 DIABETES MELLITUS WITH HYPERGLYCEMIA
[2017-09-10] MEDS ORDERED: Cardizem 30 MG PO SCH (14:45)
[2017-09-10] MEDS: Sodium Chloride 0.9% 1000 ML 1,000 ML IV SCH ×2 (15:35→19:04)
[2017-09-10] MEDS ORDERED: LIPITOR 40MG PO SCH (22:00)
[2017-09-10] MEDS: Lantus Insulin SQ SCH (22:33)
[2017-09-11] MEDS: DUONEB 0.5-3 MG/3 ml Neb IH SCH ×5 (03:05→19:21)
[2017-09-11] MEDS: Zanaflex 4 MG PO SCH ×3 (06:27→22:12)
[2017-09-11] MEDS: Merrem 1 GM 1 G in Sodium Chloride 100ML MINI-BAG PLUS 100 ML IV SCH ×3 (06:27→22:13)
[2017-09-11] MEDS: NovoLOG Insulin SQ PRN ×4 (08:25→22:13)
--- NOTE | 2017-09-11 08:26 | PCM.NOTE ---
Date and Time: 09/11/17820 Subjective Assessment: Yesterday with first dose of PO cardizem his BP decreased into the 80s systolic ; it was held the rest of the night with pulse in the 70s-80s. He had several high BP recorded overnight in 170s-180s systolic, then had several lower BP in the 110s systolic. However the cuff was noted to be very low on the pt's forearm. Pt sleeping; wakes to voice. Denies pain. Yehuda po well. - Review of Systems Constitutional: No Fever Abdominal/Gastrointestinal: No Vomiting Objective Exam General Appearance: no apparent distress, alert Neurologic Exam: cooperative, other (One word answers basically understandable; other speech difficult to understand.) Skin Exam: normal color, warm, dry Respiratory Exam: diminished breath sounds, rhonchi (scattered rough breath sounds), No crackles/rales, No wheezing Cardiovascular Exam: regular rate/rhythm, normal heart sounds, No murmur Gastrointestinal/Abdomen Exam: soft, normal bowel sounds, No tenderness Extremity Exam: other (s/p remote AKA bilat) OBJECTIVE DATA Vital Signs: Vital Signs - 24 hr Temp Pulse Resp BP Pulse Ox 09/11/17 08:00 98.1 F 91 H 22 138/73 96 09/11/17 06:59 85 18 93 L 09/11/17 04:00 73 18 165/81 97 09/11/17 03:00 65 17 94 L 09/10/17 23:54 80 20 102/63 98 09/10/17 23:00 84 24 143/81 92 L 09/10/17 22:00 83 20 161/90 95 09/10/17 21:00 81 19 139/64 95 09/10/17 20:00 75 09/10/17 19:59 85 23 117/60 91 L 09/10/17 19:00 82 22 74/57 91 L 09/10/17 18:00 81 19 111/63 94 L 09/10/17 17:00 83 23 97/60 92 L 09/10/17 16:30 120 H 26 H 106/69 95 09/10/17 16:00 97.6 F 93 H 16 113/76 94 L 09/10/17 15:00 80 21 124/67 95 09/10/17 14:00 84 22 113/76 96 09/10/17 13:00 108 H 16 178/70 92 L 09/10/17 12:00 98.6 F 88 20 133/68 94 L 09/10/17 11:00 85 22 117/60 92 L 09/10/17 10:31 87 18 93 L 09/10/17 09:56 86 15 104/52 97 09/10/17 09:00 118 H 24 121/68 96 Oxygen-Last 24 hours O2 Percentage 5 Liters = 40% O2 Percentage 5 Liters = 40% O2 Percentage 5 Liters = 40% O2 Percentage 5 Liters = 40% O2 Percentage 5 Liters = 40% O2 Percentage 5 Liters = 40% O2 Percentage 5 Liters = 40% O2 Percentage 5 Liters = 40% O2 Percentage 5 Liters = 40% O2 Percentage 5 Liters = 40% O2 Percentage 5 Liters = 40% O2 Percentage 5 Liters = 40% O2 Percentage 5 Liters = 40% O2 Percentage 5 Liters = 40% O2 Percentage 5 Liters = 40% O2 Percentage 5 Liters = 40% O2 Percentage 5 Liters = 40% O2 Percentage 5 Liters = 40% O2 Percentage 5 Liters = 40% Oxygen Flowrate (L/min)-RT 5 Oxygen Flowrate (L/min)-RT 5 Oxygen Flowrate (L/min)-RT 5 Oxygen Flowrate (L/min)-RT 5 Oxygen Flowrate (L/min)-RT 5 Oxygen Flowrate (L/min)-RT 5 Pain Assessment - Last Documented Pain Intensity 0 Pain Scale Used 0-10 Pain Scale Intake and Output: Intake & Output 09/08/17 09/09/17 09/10/17 09/11/17 11:59 11:59 11:59 11:59 Intake Total 876 3051 Output Total 1150 3000 Balance -274 51 Lab Results: Accuchecks Date 09/10/17 Time 22:06 Accucheck Value: 195 Accucheck Value: 322 Accucheck Value: 291 Assessment/Plan (1) UTI due to extended-spectrum beta lactamase (ESBL) producing Escherichia coli Current Visit: Yes Status: Acute Assessment & Plan: On IV meropenem. I will discuss with ID today regarding optimal duration of IV antibiotics. Code(s): N39.0 - URINARY TRACT INFECTION, SITE NOT SPECIFIED; A49.8 - OTHER BACTERIAL INFECTIONS OF UNSPECIFIED SITE; Z16.12 - EXTENDED SPECTRUM BETA LACTAMASE (ESBL) RESISTANCE (2) CVA (cerebral vascular accident) Current Visit: Yes Status: Acute Qualifiers: CVA mechanism: embolism Precerebral and cerebral artery: middle cerebral artery Laterality of affected vessel: left Qualified Code(s): I63.412 - Cerebral infarction due to embolism of left middle cerebral artery Assessment & Plan: Had CVA January 2017 and last week. On plavix and aspirin. He was on simvastatin but there was an interaction with cardizem; with cardizem d/c'd will change back to simvastatin 80mg at hs. Code(s): I63.9 - CEREBRAL INFARCTION, UNSPECIFIED (3) Expressive aphasia Current Visit: Yes Status: Acute Code(s): R47.01 - APHASIA (4) COPD exacerbation Current Visit: No Status: Acute Assessment & Plan: on steroids; wheezing much improved. Will send home on antibiotics to finish a 10-14 day course. He was on hospice previously for his COPD. 5L NC at home. Code(s): J44.1 - CHRONIC OBSTRUCTIVE PULMONARY DISEASE W (ACUTE) EXACERBATION (5) History of coronary artery disease Current Visit: No Status: Chronic Code(s): Z86.79 - PERSONAL HISTORY OF OTHER DISEASES OF THE CIRCULATORY SYSTEM (6) Hypertension Current Visit: No Status: Chronic Qualifiers: Hypertension type: essential hypertension Qualified Code(s): I10 - Essential (primary) hypertension Assessment & Plan: Since the bp was not in a good position for measurements, I doubt that he was as hypertensive as measured. The RN today will take BP manually if he gets an especially high or low reading (> 180 or < 110 systolic). Code(s): I10 - ESSENTIAL (PRIMARY) HYPERTENSION (7) Hypoxemia Current Visit: No Status: Chronic Code(s): R09.02 - HYPOXEMIA (8) Uncontrolled diabetes mellitus Current Visit: No Status: Chronic Qualifiers: Diabetes mellitus complication status: with circulatory complication Diabetes mellitus complication detail: with other circulatory complications Diabetes mellitus rat exterminator insulin use: unspecified skilled nursing insulin use status Assessment & Plan: Will not increase lantus, although he has highs into the 300s, since he had a low of 84. Also on novolog SS. Code(s): E11.65 - TYPE 2 DIABETES MELLITUS WITH HYPERGLYCEMIA
[2017-09-11] MEDS: Zestril 20 MG PO SCH (11:03)
[2017-09-11] MEDS: PLAVIX 75 MG Tablet PO SCH (11:03)
[2017-09-11] MEDS: Lopressor 25MG Tab PO SCH ×2 (11:04→22:12)
[2017-09-11] MEDS: BUMEX 1 MG PO SCH ×2 (11:05→17:03)
[2017-09-11] MEDS: Flomax 0.4 MG PO SCH (11:05)
[2017-09-11] MEDS: DELTASONE 20 MG PO SCH (11:05)
[2017-09-11] MEDS: Proscar 5 MG PO SCH (11:06)
[2017-09-11] MEDS: ZOLOFT 50 MG TABLET PO SCH (11:06)
[2017-09-11] MEDS: ECOTRIN 81 MG PO SCH (11:06)
[2017-09-11] MEDS: Sodium Chloride 0.9% 1000 ML 1,000 ML IV SCH (11:12)
[2017-09-11] MEDS: TYLENOL 325 MG PO PRN (14:17)
[2017-09-11] MEDS ORDERED: CARDIZEM DRIP 100 MG/100 ML D5W 100 ML IV PRN (14:39)
[2017-09-11] MEDS ORDERED: Cardizem IV 50 MG/10 ML IV ONE (15:00)
[2017-09-11] MEDS ORDERED: Lanoxin 0.5 MG/2 ML INJECTION IV ONE ×2 (16:16→22:00)
[2017-09-11] MEDS: XARELTO 10 MG TABLET PO SCH (17:03)
[2017-09-11] MEDS ORDERED: Zocor 10MG PO SCH (22:00)
[2017-09-11] MEDS: ZOCOR 20MG PO SCH (22:12)
[2017-09-11] MEDS: Lantus Insulin SQ SCH (22:13)
[2017-09-11] MEDS ORDERED: Xopenex 1.25 MG/0.5 ML UD NEBULE IH ONE (23:15)
[2017-09-11] MEDS ORDERED: Sodium Chloride 3 ML UD NEBULES IH ONE (23:16)
[2017-09-12] MEDS ORDERED: Xopenex 1.25 MG/0.5 ML UD NEBULE IH PRN (00:05)
[2017-09-12] MEDS: DUONEB 0.5-3 MG/3 ml Neb IH SCH ×7 (00:20→23:31)
[2017-09-12] MEDS: Sodium Chloride 0.9% 1000 ML 1,000 ML IV SCH ×2 (00:39→20:16)
[2017-09-12] MEDS: Zanaflex 4 MG PO SCH ×3 (05:51→21:10)
[2017-09-12] MEDS: Merrem 1 GM 1 G in Sodium Chloride 100ML MINI-BAG PLUS 100 ML IV SCH ×3 (05:51→22:18)
[2017-09-12] MEDS: NovoLOG Insulin SQ PRN ×4 (07:31→21:11)
[2017-09-12] MEDS ORDERED: Colace 100 MG PO PRN (08:06)
[2017-09-12] MEDS ORDERED: Dulcolax 10 MG SUPP PR ONE (08:06)
--- NOTE | 2017-09-12 08:14 | PCM.NOTE ---
Date and Time: 09/12/17806 Subjective Assessment: Pt had elevated HR to the 170s yesterday, transferred to ICU on cardizem drip. Cardiology consulted and changed pt from cardizem to digoxin; started with IV doses x 2 yesterday then started on digoxin this morning. Since midnight HR has been in the 70s and 80s. He tells me he has not had a BM since admission. Still has ariza catheter; this was placed just a couple of days prior to admission. - Review of Systems Constitutional: No Fever Respiratory: Cough Abdominal/Gastrointestinal: Constipation Objective Exam General Appearance: no apparent distress, alert Neurologic Exam: cooperative, dysarthria (easier to understand than yesterday) Skin Exam: normal color, warm, dry Respiratory Exam: lungs clear, diminished breath sounds (fair to good air exchange), No crackles/rales, No rhonchi, No wheezing Cardiovascular Exam: regular rate/rhythm, normal heart sounds, No murmur Extremity Exam: other (s/p bilat AKAs remotely.) OBJECTIVE DATA Vital Signs: Vital Signs - 24 hr Temp Pulse Resp BP Pulse Ox 09/12/17 07:48 96 H 09/12/17 07:00 75 22 97 09/12/17 05:00 98.6 F 82 19 167/83 92 L 09/12/17 03:53 73 09/12/17 03:35 76 17 95 09/12/17 01:00 98.6 F 87 25 H 131/79 96 09/12/17 00:08 120 H 21 96 09/12/17 00:00 109 H 09/11/17 21:00 98.6 F 151 H 19 137/77 92 L 09/11/17 20:00 135 H 09/11/17 19:22 112 H 23 94 L 09/11/17 17:25 98 H 109/71 91 L 09/11/17 16:00 125 H 09/11/17 15:07 142 H 142/100 09/11/17 15:03 98.6 F 153 H 20 117/79 91 L 09/11/17 14:46 152 H 117/79 09/11/17 12:00 142 H 09/11/17 11:14 97.7 F 88 22 146/81 91 L 09/11/17 11:09 97.6 F 109 H 22 79/49 95 09/11/17 11:00 85 18 91 L Oxygen-Last 24 hours O2 Percentage 5 Liters = 40% O2 Percentage 5 Liters = 40% O2 Percentage 6 Liters = 44% O2 Percentage 5 Liters = 40% Oxygen Flowrate (L/min)-RT 5 Pain Assessment - Last Documented Pain Intensity 0 Pain Scale Used FLACC Intake and Output: Intake & Output 09/09/17 09/10/17 09/11/17 09/12/17 11:59 11:59 11:59 11:59 Intake Total 876 3051 1333 Output Total 1150 3000 2725 Balance -274 51 -1392 Lab Results: Accuchecks Date 09/12/17 Date 09/11/17 Date 09/11/17 Date 09/11/17 Time 07:31 Time 22:05 Time 16:45 Time 11:00 Accucheck Value: 248 Accucheck Value: 425 Accucheck Value: 354 Accucheck Value: 316 Multi-Disciplinary Progress Notes: Multi-Disciplinary Progress Notes 09/12/17 04:44 Respiratory Note by David Shelton GAVE PT A XOPENEX TX FOR HIS 2300 TX ON 09/11 PT HR WAS UP. WHEN I WENT FOR HIS 0300 TX ON 09/12 HIS HR WAS NORMAL AND I RESUMED HIS DUONEB TX. PT HR NEVER DAVID ABOVE 84 DURING HIS TX. Initialized on 09/12/17 04:44 - END OF NOTE 09/11/17 14:49 Pharmacy Note by Manjit Zeng Patient now back on Cardizem drip. Will lower Zocor to 10mg dose per drug interaction recommendation. Addendum entered by Manjit Zeng 09/11/17 16:26: Cardizem is now dc'd again. Will put back on Zocor 80mg as previously ordered. Initialized on 09/11/17 14:49 - END OF NOTE Assessment/Plan (1) UTI due to extended-spectrum beta lactamase (ESBL) producing Escherichia coli Current Visit: Yes Status: Acute Assessment & Plan: I spoke with infectious disease yesterday; will d/c merrem after 3d (today at 1400) then will start 3 doses of po med. Code(s): N39.0 - URINARY TRACT INFECTION, SITE NOT SPECIFIED; A49.8 - OTHER BACTERIAL INFECTIONS OF UNSPECIFIED SITE; Z16.12 - EXTENDED SPECTRUM BETA LACTAMASE (ESBL) RESISTANCE (2) CVA (cerebral vascular accident) Current Visit: Yes Status: Acute Qualifiers: CVA mechanism: embolism Precerebral and cerebral artery: middle cerebral artery Laterality of affected vessel: left Qualified Code(s): I63.412 - Cerebral infarction due to embolism of left middle cerebral artery Assessment & Plan: His dysarthria is better this morning. Code(s): I63.9 - CEREBRAL INFARCTION, UNSPECIFIED (3) COPD exacerbation Current Visit: No Status: Acute Assessment & Plan: Wheezing is better today. Will d/c steroids. Code(s): J44.1 - CHRONIC OBSTRUCTIVE PULMONARY DISEASE W (ACUTE) EXACERBATION (4) History of coronary artery disease Current Visit: No Status: Chronic Code(s): Z86.79 - PERSONAL HISTORY OF OTHER DISEASES OF THE CIRCULATORY SYSTEM (5) Hypertension Current Visit: No Status: Chronic Qualifiers: Hypertension type: essential hypertension Qualified Code(s): I10 - Essential (primary) hypertension Code(s): I10 - ESSENTIAL (PRIMARY) HYPERTENSION (6) Uncontrolled diabetes mellitus Current Visit: No Status: Chronic Qualifiers: Diabetes mellitus complication status: with circulatory complication Diabetes mellitus complication detail: with other circulatory complications Diabetes mellitus intermodal dispatcher insulin use: unspecified intermodal dispatcher insulin use status Code(s): E11.65 - TYPE 2 DIABETES MELLITUS WITH HYPERGLYCEMIA (7) Chronic hypoxemic respiratory failure Current Visit: Yes Status: Chronic
[2017-09-12 09:09] LABS: Mean Cell Volume 86.9 fl (78-100); Mean Corpuscular Hemoglobin 26.1 pg (26-32); Mean Platelet Volume 11.1 fl (6-9.5); Platelet Count 200 K/mm3 (150-450); Red Blood Count 4.36 M/mm3 (4.1-5.6); Red Cell Distribution Width 18.9 % (11.5-14.0)
[2017-09-12 09:49] LABS: ANION GAP 14.1 MEQ/L (5-15); BLOOD UREA NITROGEN 18 mg/dL (9-20); CHLORIDE 106 mEq/L (98-107); Glucose 301 MG/DL (70-110); Potassium 3.1 mEq/L (3.5-5.1); SODIUM 146 mEq/L (136-145)
[2017-09-12] MEDS: ZOLOFT 50 MG TABLET PO SCH (10:01)
[2017-09-12] MEDS: BUMEX 1 MG PO SCH ×2 (10:03→17:05)
[2017-09-12] MEDS: Lopressor 25MG Tab PO SCH ×2 (10:03→21:10)
[2017-09-12] MEDS: Zestril 20 MG PO SCH (10:03)
[2017-09-12] MEDS: Flomax 0.4 MG PO SCH (10:03)
[2017-09-12] MEDS: Proscar 5 MG PO SCH (10:03)
[2017-09-12] MEDS: DELTASONE 20 MG PO SCH (10:03)
[2017-09-12] MEDS: Lanoxin 0.125MG TABLET PO SCH (10:04)
[2017-09-12] MEDS: TYLENOL 325 MG PO PRN (14:45)
[2017-09-12] MEDS: XARELTO 10 MG TABLET PO SCH (17:05)
[2017-09-12] MEDS: ZOCOR 20MG PO SCH (21:10)
[2017-09-12] MEDS: Lantus Insulin SQ SCH (21:11)
[2017-09-13] MEDS: DUONEB 0.5-3 MG/3 ml Neb IH SCH ×2 (02:49→06:47)
[2017-09-13] MEDS: Merrem 1 GM 1 G in Sodium Chloride 100ML MINI-BAG PLUS 100 ML IV SCH (06:01)
[2017-09-13] MEDS: Zanaflex 4 MG PO SCH (06:01)
[2017-09-13 06:55] VITALS: O2SAT 90
[2017-09-13 07:22] VITALS: BP 147/67
[2017-09-13] MEDS: Flomax 0.4 MG PO SCH (08:46)
[2017-09-13] MEDS: DELTASONE 20 MG PO SCH (08:46)
[2017-09-13] MEDS: Lopressor 25MG Tab PO SCH (08:47)
[2017-09-13] MEDS: Lanoxin 0.125MG TABLET PO SCH (08:47)
[2017-09-13] MEDS: BUMEX 1 MG PO SCH (08:47)
[2017-09-13] MEDS: Zestril 20 MG PO SCH (08:47)
[2017-09-13] MEDS: Proscar 5 MG PO SCH (08:48)
[2017-09-13] MEDS: ZOLOFT 50 MG TABLET PO SCH (08:49)
[2017-09-13 08:59] VITALS: PULSE 103
--- NOTE | 2017-09-13 09:03 | PCM.DS ---
Discharge Summary Date of Admission: 09/09/17 11:50 Admitting Physician: FLORIDA REESE Primary Care Provider: MOHIT YEAGER Allergies Allergies No Known Drug Allergies Allergy (Verified 09/07/17 07:19) Hospital Summary - Hospital Course Hospital Course: Hospice pt admitted through ER to DR. Reese with complaint of altered mental status per family. He has PMHx COPD (on hospice), bilateral AKAs, prior CVA with R hemiparesis, BPH, CAD. I spoke with his hospice nurse and he had been having intermittent episodes of garbled speech for 1-2 weeks prior to admission. His swallow study put him at high risk for aspiration so he was placed on pureed diet with honey thickened liquids. He was found to be oriented but his speech was hard to understand. This improved slightly throughout his stay. I discussed with his that he had likely had another CVA and the CT was negative for bleed; could do another MRI but clinically would not change any decision making at this point so she agreed not to do one at this time. Initially he was felt to have an infectious process and the thought was it was related to some redness on his buttocks; that has been unchanged however he was found to have an ESBL + UTI and his antibiotics were changed to merropenem. I spoke with ID and they recommended merropenem for at least 3 days followed by fosfomycin 3g po every other day for 3 doses. Pt had wheezing and was started on steroids. He was put on a catheter but to date has failed bladder training. If he fails again today will have to d/c on the catheter. He had elevated HR to 160s-170s at times, SVT vs afib with RVR, and was started on a cardizem drip on two separate occasions; on the first occasion he was transitioned to po cardizem with a drop in BP so was just observed without any cardizem and after 12-24 h he resumed his elevated HR. Cardiology was consulted and started the pt on digoxin. Since then his HR has basically been in the 70s-80s with occasional forays into the 150s-160s briefly that are asx and resolve with valsalva. His plavix and aspirin were changed to xarelto. He will be going back home on hospice today. - Vitals & Intake/Output Vital Signs: Vital Signs Temperature 98.0 F 09/13/17 07:21 Pulse Rate 86 09/13/17 07:21 Respiratory Rate 22 09/13/17 07:21 Blood Pressure 147/67 09/13/17 07:21 O2 Sat by Pulse Oximetry 90 L 09/13/17 07:21 Oxygen-Last Documented O2 Percentage 5 Liters = 40% Intake & Output: Intake & Output 09/10/17 09/11/17 09/12/17 09/13/17 11:59 11:59 11:59 11:59 Intake Total 876 3051 1453 3448 Output Total 1150 3000 3175 3560 Balance -274 51 -1722 -112 Weight 62.823 kg - Lab Result Diagrams: 09/12/17 08:13 09/12/17 08:13 Lab Results-Last 24 Hrs: Accuchecks Date 09/12/17 Date 09/12/17 Date 09/12/17 Date 09/12/17 Time 22:00 Time 16:30 Time 16:30 Time 11:30 Accucheck Value: 476 Accucheck Value: 367 Accucheck Value: 367 Accucheck Value: 308 Lab Results-Last 24 Hours 09/12/17 09/12/17 09/12/17 Range/Units 08:13 08:13 08:13 WBC 7.0 (4.0-10.5) K/mm3 RBC 4.36 (4.1-5.6) M/mm3 Hgb 11.4 L (12.5-18.0) gm/dl Hct 37.9 L (42-50) % MCV 86.9 (78-100) fl MCH 26.1 (26-32) pg MCHC 30.1 L (32-36) g/dl RDW 18.9 H (11.5-14.0) % Plt Count 200 (150-450) K/mm3 MPV 11.1 H (6-9.5) fl Sodium 146 H (136-145) mEq/L Potassium 3.1 L (3.5-5.1) mEq/L Chloride 106 (98-107) mEq/L Carbon Dioxide 29.0 (21-32) mEq/L Anion Gap 14.1 (5-15) MEQ/L BUN 18 (9-20) mg/dL Creatinine 1.07 (0.55-1.30) mg/dl Estimated GFR > 60 ML/MIN Glucose 301 H (70-110) MG/DL Hemoglobin A1c 10.0 H (4.5-6.2) Calcium 7.9 L (8.5-10.1) mg/dL Micro Results-Entire Visit: Accuchecks Date 09/12/17 Date 09/12/17 Date 09/12/17 Date 09/12/17 Time 22:00 Time 16:30 Time 16:30 Time 11:30 Accucheck Value: 476 Accucheck Value: 367 Accucheck Value: 367 Accucheck Value: 308 - Procedures and Test Procedures and Tests throughout Hospitalization: Therapy Orders & Screens 09/07/17 10:37 Oxygen NASAL CANNULA 5 lpm Comment: Diagnosis: ALTERED MENTAL STATUS 09/07/17 11:00 Respiratory Nebulizer Q4H Comment: DUONEB Q4 Diagnosis: ALTERED MENTAL STATUS 09/07/17 13:12 ST Eval & Treat (MD Order) .as ordered Comment: Physician Instructions: Reason For Exam: Evaluate: Yes Treat: Yes Reason for Eval: diffuculty swallowing,slurred speech, and hx of aspiration PNE Diagnosis: ALTERED MENTAL STATUS 09/07/17 21:00 BiPap/CPAP Assessment Comment: HOME CPAP PER HOME SETTINGS Diagnosis: ALTERED MENTAL STATUS 09/09/17 22:55 EKG STAT Comment: Diagnosis: ALTERED MENTAL STATUS 09/11/17 08:20 PT Eval & Treat (MD Order) ROUTINE Evaluate: Yes Treat: Yes Reason for Eval:: recent CVA (on remote CVA) Diagnosis: ALTERED MENTAL STATUS 09/12/17 00:05 Respiratory Nebulizer PRN Comment: Diagnosis: UTI, CVA Discharge Exam General Appearance: no apparent distress, alert Neurologic Exam: oriented x 3, cooperative, other (when asked, "how do you feel? " he replies "With my fingers!") Skin Exam: normal color, warm, dry Ears, Nose, Throat Exam: moist mucous membranes Respiratory Exam: lungs clear, diminished breath sounds (some rough breath sounds scattered), No crackles/rales, No rhonchi, No wheezing Cardiovascular Exam: regular rate/rhythm, normal heart sounds, No murmur Gastrointestinal/Abdomen Exam: soft, normal bowel sounds, No tenderness Extremity Exam: other (bilat AKAs and RUE paralysis as before) Back Exam: normal inspection Final Diagnosis/Problem List - Final Discharge Diagnosis/Problem (1) UTI due to extended-spectrum beta lactamase (ESBL) producing Escherichia coli Current Visit: Yes Status: Acute Assessment & Plan: Finished 3+ days of merropenem IV and will start fosfomycin today, 3g po every other day x 3 doses. (2) CVA (cerebral vascular accident) Current Visit: Yes Status: Acute Assessment & Plan: On pureed diet and honey-thickened liquids. Doing better with his speech. (3) COPD exacerbation Current Visit: No Status: Acute Assessment & Plan: Home on prednisone (has been on 60mg po daily for the past several days). (4) History of coronary artery disease Current Visit: No Status: Chronic (5) Hypertension Current Visit: No Status: Chronic (6) Uncontrolled diabetes mellitus Current Visit: No Status: Chronic Assessment & Plan: A1c is 10.0. Expect it's even higher here with the steroids. However can't increase long acting insulin as he has had some BS in the 80s. (7) Chronic hypoxemic respiratory failure Current Visit: Yes Status: Chronic Assessment & Plan: On hospice for COPD. (8) Atrial fibrillation with rapid ventricular response Current Visit: Yes Status: Chronic Assessment & Plan: Home on digoxin. Valsalva for breakthrough episodes. Home on xarelto. - Discharge Disposition: Home, Self-Care Condition: Fair Prescriptions: New Prednisone 20 mg [Deltasone 20 mg] 40 mg PO DAILY #8 tablet Digoxin 0.125 mg Tablet [Lanoxin 0.125MG TABLET] 0.125 mg PO DAILY #30 tablet Fosfomycin Tromethamine [Monurol] 3 gm PO UD #2 packet Rivaroxaban 10 mg Tablet [Xarelto 10 mg Tablet] 20 mg PO DINNER #30 tablet Continue Metformin HCl 1000 mg [Glucophage 1000 MG] 1,000 mg PO BID Ipratropium/Albuterol Sulfate [Iprat-Albut 0.5-3(2.5) mg/3 ml] 3 ml IH Q6HPRN PRN PRN Reason: Shortness Of Breath Tizanidine HCl 4 mg [Zanaflex 4 MG] 4 mg PO Q8H Acetaminophen 325 mg [Tylenol 325 mg] 325 mg PO Q4HPRN PRN PRN Reason: Pain Loperamide HCl [Imodium A-D] 2 mg PO UD Tamsulosin HCl 0.4 mg [Flomax 0.4 MG] 0.4 mg PO DAILY Simvastatin 40 mg [Zocor 40 mg] 80 mg PO HS Sennosides/Docusate Sodium [Docusate Sodium-Senna Tablet] 8.6 mg PO BID Finasteride 5 mg [Proscar 5 MG] 5 mg PO DAILY Guaifenesin 600 mg ER [Mucinex 600MG ER Tabs] 600 mg PO Q12H Insulin Lispro [Humalog] 10 unit SQ AC Potassium Chloride 10 Meq Tab* [Klor Con 10 MEQ] 10 meq PO DAILY PANTOPRAZOLE 40 mg Tablet [Protonix 40MG Tablet] 40 mg PO BID Insulin Detemir [Levemir] 15 units SQ DAILY Bumetanide [Bumex] 1 mg PO BID Lisinopril [Zestril] 40 mg PO DAILY Sertraline HCl [Zoloft] 37.5 mg PO DAILY Diphenoxylate HCl/Atropine [Lomotil 2.5-0.025 mg Tablet] 2 mg PO BID PRN Changed Metoprolol Tartrate 25 mg [Lopressor 25MG Tab] 25 mg PO BID #60 tab Discontinued Aspirin EC 81 mg [Ecotrin 81 mg] 81 mg PO DAILY Clopidogrel Bisulfate 75 mg [PLAVIX 75 MG Tablet] 75 mg PO DAILY Follow up with: FLORIDA REESE [ACTIVE STAFF] - 09/19/17 2:45 pm Forms: Patient Portal Information
[2017-09-13] MEDS ORDERED: NON-FORMULARY ITEM PO SCH (10:00)
--- NOTE | 2017-09-14 13:52 | ECHO ---
Transthoracic echocardiographic examination and color Doppler was done on 09/13/2017. INDICATION: Atrial fibrillation, history of myocardial infarction. IMPRESSION: THE STUDY WAS SOMEWHAT LIMITED BECAUSE OF A LIMITED ACOUSTIC WINDOW. The left ventricle is only partially visualized. Estimated global left ventricular ejection fraction of around 50%. There appears to be some mild left ventricular hypertrophy. The mitral valve appears to be normal. No significant mitral regurgitation is seen. The left atrium appears to be normal. The aortic valve was not well visualized. The peak gradient across the left ventricular outflow tract is about 16 mm of Mercury. Right side chambers are mildly dilated. There is trace tricuspid regurgitation. The right ventricular systolic pressure is 47 mm of Mercury.
== END 2017-09-13 11:00 | disposition hospice, home (50) | DRG 689 ==
LOC: ED 06:18 → MED SURG 09:33 → OBSVTOIN 09-09 11:50 → ICU 09-10 00:25 → MED SURG 09-11 08:45 → ICU 09-11 14:59 → MED SURG 09-12 08:20
PROVIDERS: ADMIT Family Medicine; ATTEND Family Medicine
DX: N39.0 Urinary tract infection, site not specified (principal); I63.412 Cerebral infarction due to embolism of left middle cerebral artery; J44.1 Chronic obstructive pulmonary disease with (acute) exacerbation; J96.11 Chronic respiratory failure with hypoxia; L03.90 Cellulitis, unspecified; R47.01 Aphasia; B96.20 Unspecified Escherichia coli [E. coli] as the cause of diseases classified elsewhere; Z16.12 Extended spectrum beta lactamase (ESBL) resistance; I25.10 Atherosclerotic heart disease of native coronary artery without angina pectoris; I10 Essential (primary) hypertension; E11.65 Type 2 diabetes mellitus with hyperglycemia; Z79.4 Long term (current) use of insulin; I48.91 Unspecified atrial fibrillation; N40.0 Benign prostatic hyperplasia without lower urinary tract symptoms; K59.00 Constipation, unspecified; Z79.899 Other long term (current) drug therapy; Z86.73 Personal history of transient ischemic attack (TIA), and cerebral infarction without residual deficits; Z89.612 Acquired absence of left leg above knee; Z89.611 Acquired absence of right leg above knee; K76.9 Liver disease, unspecified
CPT/HCPCS: 36000; 36415; 51702; 70450; 71010; 74230; 80048; 80053; 81000; 82805; 82962; 83036; 83605; 83880; 84484; 85025; 85027; 85610; 85730; 87040; 87077; 87086; 87186; 93005; 93306; 94640; 94760; 96360; 96361; 96365; 96374; 99285; G0378; J0696; J1160; J1650; J3370; A9270-GY; J7506